=== PATIENT | male | born 1955 | race Caucasian/White ===

== ENCOUNTER 2020-03-06 09:46 | Outpatient (REF) | payer MEDICARE, SELFPAY ==
[2020-03-06 13:52] LABS: MANUAL DIFF FLAG NO
[2020-03-06 14:04] LABS: Basophils Absolute Auto 0.1 X10*3/uL (0.0-0.2); Basophils Percent Auto 0.8 % (0-2); Eosinophils Absolute Auto 0.8 X10*3/uL (0.0-0.4); Eosinophils Percent Auto 9.1 % (0-4); Hematocrit 39.8 % (42-52); Imm Gran Abs Auto 0.06 X10*3/uL (0.00-0.03); Imm Gran Pct Auto 0.7 % (0.0-0.4); Lymphocytes Absolute Auto 2.1 X10*3/uL (1.2-4.9); Lymphocytes Percent Auto 25.5 % (20-40); Mean Corpuscular HGB Conc 32.7 g/dl (31.0-36.0); Mean Corpuscular Hemoglobin 32.7 pg (27.0-33.0); Mean Corpuscular Volume 100.3 fL (80-98); Monocytes Absolute Auto 0.8 X10*3/uL (0.1-1.2); Monocytes Percent Auto 9.1 % (2-11); Neutrophils Absolute Auto 4.6 X10*3/uL (2.0-8.3); Neutrophils Percent Auto 54.8 % (45-73); Platelet Count 322 X10*3/uL (160-400); Red Blood Count 3.97 X10*6/uL (4.60-5.80); Red Cell Distribution Width 11.5 % (11.0-16.0); White Blood Count 8.4 X10*3/uL (4.8-10.8)
[2020-03-06 14:27] LABS: Alanine Aminotransferase 18 U/L (0-40); Albumin Level 4.1 g/dL (3.5-5.0); Alkaline Phosphatase 69 U/L (39-117); Anion Gap 13 (12-20); Aspartate Amino Transferase 11 U/L (5-37); Bilirubin Total 0.3 mg/dL (0.0-1.0); Blood Urea Nitrogen 8 mg/dL (9-16); Calcium 8.7 mg/dL (8.4-10.2); Carbon Dioxide 25 mmol/L (22-29); Chloride 103 mmol/L (96-108); Cholesterol 179 mg/dL; Estimated Glomerular Filt Rate > 60; Glucose Fasting 96 mg/dL (60-99); HDL Cholesterol 45 mg/dL; Iron 80 mcg/dL (45-160); LDL Cholesterol Calculated 121 mg/dl; Percent Iron Saturation 33 % (15-50); Potassium 4.7 mmol/l (3.3-5.1); Sodium 136 mmol/L (135-145); Total Iron Binding Capacity 243 mcg/dL (228-428); Total Protein 6.4 g/dL (6.5-8.0); Triglycerides 68 mg/dL; Unsaturated Iron Binding 163 ug/dL
[2020-03-06 14:53] LABS: Free T4 (Free Thyroxine) 0.94 ng/dL (0.71-1.85); Prostate Specific Antigen Scr 0.89 ng/mL (<0.05-4.0); Thyroid Stimulating Hormone 0.53 uIU/mL (0.32-4.0)
== END 2020-03-06 09:47 | disposition home or self-care (01) ==
LOC: HO.10HDL 09:46
PROVIDERS: Visit Provider Internal Medicine
DX: Z12.5 Encounter for screening for malignant neoplasm of prostate (principal); D64.9 Anemia, unspecified; I10 Essential (primary) hypertension; N40.0 Benign prostatic hyperplasia without lower urinary tract symptoms; M54.9 Dorsalgia, unspecified; E03.9 Hypothyroidism, unspecified
CPT/HCPCS: 36415; 80053; 80061; 83540; 84153; 84439; 84443; 85025

== ENCOUNTER 2020-07-11 11:03 | Outpatient (REF) | payer MEDICARE, SELFPAY ==
[2020-07-11 14:01] LABS: MANUAL DIFF FLAG NO
[2020-07-11 14:10] LABS: Basophils Absolute Auto 0.1 X10*3/uL (0.0-0.2); Basophils Percent Auto 0.7 % (0-2); Eosinophils Absolute Auto 0.5 X10*3/uL (0.0-0.4); Eosinophils Percent Auto 7.2 % (0-4); Hematocrit 38.4 % (42-52); Hemoglobin 12.5 g/dl (14.0-18.0); Imm Gran Abs Auto 0.05 X10*3/uL (0.00-0.03); Imm Gran Pct Auto 0.7 % (0.0-0.4); Lymphocytes Absolute Auto 1.3 X10*3/uL (1.2-4.9); Mean Corpuscular HGB Conc 32.6 g/dl (31.0-36.0); Mean Corpuscular Hemoglobin 32.1 pg (27.0-33.0); Mean Corpuscular Volume 98.7 fL (80-98); Monocytes Absolute Auto 0.7 X10*3/uL (0.1-1.2); Monocytes Percent Auto 9.8 % (2-11); Neutrophils Absolute Auto 4.4 X10*3/uL (2.0-8.3); Neutrophils Percent Auto 62.6 % (45-73); Platelet Count 323 X10*3/uL (160-400); Red Blood Count 3.89 X10*6/uL (4.60-5.80); White Blood Count 7.1 X10*3/uL (4.8-10.8)
[2020-07-11 14:30] LABS: Alanine Aminotransferase 16 U/L (0-40); Albumin Level 4.1 g/dL (3.5-5.0); Alkaline Phosphatase 79 U/L (39-117); Anion Gap 13 (12-20); Aspartate Amino Transferase 12 U/L (5-37); Bilirubin Total 0.2 mg/dL (0.0-1.0); Blood Urea Nitrogen 8 mg/dL (9-16); Carbon Dioxide 26 mmol/L (22-29); Chloride 100 mmol/L (96-108); Estimated Glomerular Filt Rate > 60; Glucose Random 107 mg/dL (60-115); Sodium 134 mmol/L (135-145); Total Protein 6.5 g/dL (6.5-8.0)
[2020-07-11 14:55] LABS: Free T4 (Free Thyroxine) 0.78 ng/dL (0.71-1.85); Thyroid Stimulating Hormone 0.73 uIU/mL (0.32-4.0)
== END 2020-07-11 11:04 | disposition home or self-care (01) ==
LOC: HO.10HDL 11:03
PROVIDERS: PCP Internal Medicine; Visit Provider Internal Medicine
DX: I10 Essential (primary) hypertension (principal); E03.9 Hypothyroidism, unspecified; M19.90 Unspecified osteoarthritis, unspecified site; G40.909 Epilepsy, unspecified, not intractable, without status epilepticus
CPT/HCPCS: 36415; 80053; 84439; 84443; 85025

== ENCOUNTER 2021-01-05 09:40 | Outpatient (REF) | payer MEDICARE, SELFPAY ==
[2021-01-05 10:05] LABS: MANUAL DIFF FLAG NO
[2021-01-05 10:13] LABS: Basophils Absolute Auto 0.1 X10*3/uL (0.0-0.2); Basophils Percent Auto 0.6 % (0-2); Eosinophils Absolute Auto 0.5 X10*3/uL (0.0-0.4); Eosinophils Percent Auto 6.3 % (0-4); Hematocrit 37.4 % (42-52); Hemoglobin 12.4 g/dl (14.0-18.0); Imm Gran Abs Auto 0.07 X10*3/uL (0.00-0.03); Imm Gran Pct Auto 0.9 % (0.0-0.4); Lymphocytes Absolute Auto 1.7 X10*3/uL (1.2-4.9); Lymphocytes Percent Auto 21.9 % (20-40); Mean Corpuscular HGB Conc 33.2 g/dl (31.0-36.0); Mean Corpuscular Hemoglobin 32.6 pg (27.0-33.0); Mean Corpuscular Volume 98.4 fL (80-98); Mean Platelet Volume 9.2 fL (9.4-12.4); Monocytes Absolute Auto 0.7 X10*3/uL (0.1-1.2); Monocytes Percent Auto 9.3 % (2-11); Neutrophils Absolute Auto 4.7 X10*3/uL (2.0-8.3); Platelet Count 333 X10*3/uL (160-400); Red Cell Distribution Width 13.2 % (11.0-16.0); White Blood Count 7.7 X10*3/uL (4.8-10.8)
[2021-01-05 10:38] LABS: Alanine Aminotransferase 14 U/L (0-40); Albumin Level 4.3 g/dL (3.5-5.0); Alkaline Phosphatase 70 U/L (39-117); Anion Gap 13 (12-20); Aspartate Amino Transferase 12 U/L (5-37); Bilirubin Total 0.3 mg/dL (0.0-1.0); Blood Urea Nitrogen 9 mg/dL (9-16); Calcium 9.7 mg/dL (8.4-10.2); Carbon Dioxide 27 mmol/L (22-29); Chloride 100 mmol/L (96-108); Estimated Glomerular Filt Rate > 60; Glucose Random 106 mg/dL (60-115); Iron 159 mcg/dL (45-160); Percent Iron Saturation 57 % (15-50); Potassium 5.2 mmol/L (3.3-5.1); Sodium 135 mmol/L (135-145); Total Iron Binding Capacity 281 mcg/dL (228-428); Total Protein 6.7 g/dL (6.5-8.0); Unsaturated Iron Binding 122 ug/dL
[2021-01-05 10:58] LABS: Thyroid Stimulating Hormone 1.29 uIU/mL (0.32-4.0)
== END 2021-01-05 09:41 | disposition home or self-care (01) ==
LOC: HO.10HDL 09:40
PROVIDERS: Visit Provider Internal Medicine
DX: I10 Essential (primary) hypertension (principal); E03.9 Hypothyroidism, unspecified; D64.9 Anemia, unspecified; G40.909 Epilepsy, unspecified, not intractable, without status epilepticus
CPT/HCPCS: 36415; 80053; 83540; 84439; 84443; 85025

== ENCOUNTER 2021-05-27 09:47 | Outpatient (REF) | payer MEDICARE, SELFPAY ==
[2021-05-27 10:18] LABS: MANUAL DIFF FLAG NO
[2021-05-27 10:30] LABS: Basophils Absolute Auto 0.1 X10*3/uL (0.0-0.2); Basophils Percent Auto 0.8 % (0-2); Eosinophils Absolute Auto 0.6 X10*3/uL (0.0-0.4); Eosinophils Percent Auto 8.7 % (0-4); Hematocrit 37.1 % (42.0-52.0); Hemoglobin 12.1 g/dl (14.0-18.0); Imm Gran Abs Auto 0.03 X10*3/uL (0.00-0.03); Imm Gran Pct Auto 0.5 % (0.0-0.4); Lymphocytes Absolute Auto 1.3 X10*3/uL (1.2-4.9); Lymphocytes Percent Auto 20.8 % (20-40); Mean Corpuscular HGB Conc 32.6 g/dl (31.0-36.0); Mean Corpuscular Hemoglobin 32.4 pg (27.0-33.0); Mean Corpuscular Volume 99.5 fL (80.0-98.0); Mean Platelet Volume 9.7 fL (9.4-12.4); Monocytes Absolute Auto 0.8 X10*3/uL (0.1-1.2); Monocytes Percent Auto 12.7 % (2-11); Neutrophils Absolute Auto 3.7 x10*3/uL (2.0-8.3); Neutrophils Percent Auto 56.5 % (45-73); Platelet Count 248 X10*3/uL (160-400); Red Blood Count 3.73 X10*6/uL (4.60-5.80); White Blood Count 6.5 X10*3/uL (4.8-10.8)
[2021-05-27 11:00] LABS: Alanine Aminotransferase 18 U/L (0-40); Albumin Level 4.2 g/dL (3.5-5.0); Alkaline Phosphatase 63 U/L (39-117); Anion Gap 10 (12-20); Aspartate Amino Transferase 11 U/L (5-37); Bilirubin Total 0.4 mg/dL (0.0-1.0); Blood Urea Nitrogen 8 mg/dL (9-16); Calcium 9.3 mg/dL (8.4-10.2); Carbon Dioxide 27 mmol/L (22-29); Chloride 106 mmol/L (96-108); Cholesterol 221 mg/dL; Estimated Glomerular Filt Rate > 60; Glucose Fasting 105 mg/dL (60-99); HDL Cholesterol 54 mg/dL; LDL Cholesterol Calculated 150 mg/dl; Potassium 4.4 mmol/L (3.3-5.1); Sodium 139 mmol/L (135-145); Total Protein 6.5 g/dL (6.5-8.0); Triglycerides 89 mg/dL
[2021-05-27 11:15] LABS: Free T4 (Free Thyroxine) 0.88 ng/dL (0.71-1.85); Thyroid Stimulating Hormone 1.29 uIU/mL (0.32-4.0)
[2021-05-27 11:45] LABS: Prostate Specific Antigen Scr 0.58 ng/mL (<0.05-4.0)
[2021-05-27 14:10] LABS: Appearance Urine CLEAR; Color Urine YELLOW; Glucose Urine UA NEG (NEG); Leukocyte Esterase Urine NEG (NEG); Nitrite Urine NEG (NEG); Urine Blood TRACE (NEG); Urine Ketones NEG (NEG); Urine Protein NEG (NEG-TRACE)
[2021-05-27 14:38] LABS: Squamous Epithelial Cell Urine 1+ /LPF; WBC Urine 0 /HPF (0-4)
== END 2021-05-27 09:48 | disposition home or self-care (01) ==
LOC: HO.10HDL 09:47
PROVIDERS: Visit Provider Internal Medicine
DX: I10 Essential (primary) hypertension (principal); E78.00 Pure hypercholesterolemia, unspecified; N40.0 Benign prostatic hyperplasia without lower urinary tract symptoms; D64.9 Anemia, unspecified; E03.9 Hypothyroidism, unspecified; G40.909 Epilepsy, unspecified, not intractable, without status epilepticus; Z12.5 Encounter for screening for malignant neoplasm of prostate
CPT/HCPCS: 36415; 80053; 80061; 80185; 81001; 81003; 84153; 84439; 84443; 85025

== ENCOUNTER 2021-10-16 08:41 | Outpatient (REF) | payer MEDICARE, SELFPAY ==
[2021-10-16 10:49] LABS: MANUAL DIFF FLAG NO
[2021-10-16 10:50] LABS: Basophils Absolute Auto 0.1 X10*3/uL (0.0-0.2); Basophils Percent Auto 0.6 % (0-2); Eosinophils Absolute Auto 0.8 X10*3/uL (0.0-0.4); Eosinophils Percent Auto 9.4 % (0-4); Hematocrit 39.3 % (42.0-52.0); Hemoglobin 13.2 g/dl (14.0-18.0); Imm Gran Abs Auto 0.04 X10*3/uL (0.00-0.03); Imm Gran Pct Auto 0.5 % (0.0-0.4); Lymphocytes Absolute Auto 2.1 X10*3/uL (1.2-4.9); Lymphocytes Percent Auto 24.5 % (20-40); Mean Corpuscular HGB Conc 33.6 g/dl (31.0-36.0); Mean Corpuscular Hemoglobin 32.7 pg (27.0-33.0); Mean Corpuscular Volume 97.3 fL (80.0-98.0); Monocytes Absolute Auto 0.8 X10*3/uL (0.1-1.2); Monocytes Percent Auto 8.9 % (2-11); Neutrophils Absolute Auto 4.7 x10*3/uL (2.0-8.3); Neutrophils Percent Auto 56.1 % (45-73); Platelet Count 223 X10*3/uL (160-400); Red Blood Count 4.04 X10*6/uL (4.60-5.80); Red Cell Distribution Width 12.3 % (11.0-16.0); White Blood Count 8.4 X10*3/uL (4.8-10.8)
[2021-10-16 11:51] LABS: Alanine Aminotransferase 24 U/L (0-40); Albumin Level 4.4 g/dL (3.5-5.0); Alkaline Phosphatase 71 U/L (39-117); Anion Gap 14 (12-20); Aspartate Amino Transferase 14 U/L (5-37); Bilirubin Total 0.5 mg/dL (0.0-1.0); Blood Urea Nitrogen 12 mg/dL (9-16); Carbon Dioxide 23 mmol/L (22-29); Chloride 104 mmol/L (96-108); Cholesterol 266 mg/dL; Estimated Glomerular Filt Rate > 60; Glucose Fasting 113 mg/dL (60-99); HDL Cholesterol 52 mg/dL; Iron 133 mcg/dL (45-160); LDL Cholesterol Calculated 173 mg/dl; Percent Iron Saturation 48 % (15-50); Potassium 4.4 mmol/L (3.3-5.1); Sodium 137 mmol/L (135-145); Total Iron Binding Capacity 277 mcg/dL (228-428); Total Protein 7.1 g/dL (6.5-8.0); Triglycerides 205 mg/dL; Unsaturated Iron Binding 144 ug/dL
== END 2021-10-16 08:42 | disposition home or self-care (01) ==
LOC: HO.10HDL 08:41
PROVIDERS: Visit Provider Internal Medicine
DX: I10 Essential (primary) hypertension (principal); E78.00 Pure hypercholesterolemia, unspecified; D64.9 Anemia, unspecified
CPT/HCPCS: 36415; 80053; 80061; 83540; 85025

== ENCOUNTER 2022-01-04 10:15 | Outpatient (REF) | payer MEDICARE, SELFPAY ==
[2022-01-04 10:56] LABS: Estimated Average Glucose 103 mg/dL; Hemoglobin A1c % 5.2 %
[2022-01-04 11:13] LABS: Anion Gap 18 (12-20); Blood Urea Nitrogen 10 mg/dL (9-16); Calcium 9.5 mg/dL (8.4-10.2); Carbon Dioxide 23 mmol/L (22-29); Chloride 102 mmol/L (96-108); Cholesterol 207 mg/dL; Estimated Glomerular Filt Rate > 60; Glucose Fasting 106 mg/dL (60-99); HDL Cholesterol 46 mg/dL; LDL Cholesterol Calculated 123 mg/dl; Potassium 4.7 mmol/L (3.3-5.1); Sodium 138 mmol/L (135-145); Triglycerides 194 mg/dL
== END 2022-01-04 10:16 | disposition home or self-care (01) ==
LOC: HO.10HDL 10:15
PROVIDERS: Visit Provider Internal Medicine
DX: E78.00 Pure hypercholesterolemia, unspecified (principal); R73.03 Prediabetes
CPT/HCPCS: 36415; 80048; 80061; 83036

== ENCOUNTER 2022-04-13 09:35 | Outpatient (REF) | payer MEDICARE, SELFPAY ==
[2022-04-13 10:35] LABS: MANUAL DIFF FLAG NO
[2022-04-13 10:43] LABS: Basophils Absolute Auto 0.1 X10*3/uL (0.0-0.2); Basophils Percent Auto 0.7 % (0-2); Eosinophils Absolute Auto 0.4 X10*3/uL (0.0-0.4); Eosinophils Percent Auto 6.3 % (0-4); Hematocrit 39.2 % (42.0-52.0); Hemoglobin 12.8 g/dl (14.0-18.0); Imm Gran Abs Auto 0.08 X10*3/uL (0.00-0.03); Imm Gran Pct Auto 1.1 % (0.0-0.4); Lymphocytes Absolute Auto 1.9 X10*3/uL (1.2-4.9); Lymphocytes Percent Auto 27.2 % (20-40); Mean Corpuscular HGB Conc 32.7 g/dl (31.0-36.0); Mean Corpuscular Hemoglobin 31.7 pg (27.0-33.0); Mean Platelet Volume 9.7 fL (9.4-12.4); Monocytes Absolute Auto 0.7 X10*3/uL (0.1-1.2); Monocytes Percent Auto 9.3 % (2-11); Neutrophils Absolute Auto 3.9 x10*3/uL (2.0-8.3); Neutrophils Percent Auto 55.4 % (45-73); Platelet Count 273 X10*3/uL (160-400); Red Blood Count 4.04 X10*6/uL (4.60-5.80); Red Cell Distribution Width 12.4 % (11.0-16.0)
[2022-04-13 11:24] LABS: Alanine Aminotransferase 11 U/L (0-40); Albumin Level 4.1 g/dL (3.5-5.0); Alkaline Phosphatase 86 U/L (39-117); Anion Gap 12 (12-20); Aspartate Amino Transferase 11 U/L (5-37); Bilirubin Total 0.3 mg/dL (0.0-1.0); Blood Urea Nitrogen 10 mg/dL (9-16); Calcium 9.1 mg/dL (8.4-10.2); Carbon Dioxide 24 mmol/L (22-29); Chloride 104 mmol/L (96-108); Estimated Glomerular Filt Rate > 60; Glucose Random 105 mg/dL (60-115); Potassium 4.4 mmol/L (3.3-5.1); Sodium 136 mmol/L (135-145); Total Protein 6.4 g/dL (6.5-8.0)
== END 2022-04-13 09:36 | disposition home or self-care (01) ==
LOC: HO.10HDL 09:35
PROVIDERS: Visit Provider Internal Medicine
DX: D64.9 Anemia, unspecified (principal); G40.909 Epilepsy, unspecified, not intractable, without status epilepticus; I10 Essential (primary) hypertension
CPT/HCPCS: 36415; 80053; 85025

== ENCOUNTER 2022-07-15 09:58 | Outpatient (REF) | payer MEDICARE, SELFPAY ==
[2022-07-15 11:37] LABS: Free T4 (Free Thyroxine) 0.97 ng/dL (0.71-1.85); Thyroid Stimulating Hormone 1.79 uIU/mL (0.32-4.0)
[2022-07-15 13:45] LABS: Phenytoin Dilantin 3.4 ug/mL (10.0-20.0)
== END 2022-07-15 09:59 | disposition home or self-care (01) ==
LOC: HO.10HDL 09:58
PROVIDERS: Visit Provider Internal Medicine
DX: E03.9 Hypothyroidism, unspecified (principal); G40.909 Epilepsy, unspecified, not intractable, without status epilepticus
CPT/HCPCS: 36415; 80185; 84439; 84443

== ENCOUNTER 2023-01-03 09:59 | Outpatient (REF) | payer MEDICARE, SELFPAY ==
[2023-01-03 10:50] LABS: MANUAL DIFF FLAG NO
[2023-01-03 10:51] LABS: Basophils Absolute Auto 0.1 X10*3/uL (0.0-0.2); Basophils Percent Auto 0.7 % (0-2); Eosinophils Absolute Auto 0.4 X10*3/uL (0.0-0.4); Eosinophils Percent Auto 5.4 % (0-4); Hematocrit 39.8 % (42.0-52.0); Imm Gran Abs Auto 0.03 X10*3/uL (0.00-0.03); Imm Gran Pct Auto 0.4 % (0.0-0.4); Lymphocytes Absolute Auto 2.3 X10*3/uL (1.2-4.9); Lymphocytes Percent Auto 28.3 % (20-40); Mean Corpuscular HGB Conc 32.7 g/dl (31.0-36.0); Mean Corpuscular Hemoglobin 31.4 pg (27.0-33.0); Mean Corpuscular Volume 96.1 fL (80.0-98.0); Mean Platelet Volume 9.4 fL (9.4-12.4); Monocytes Absolute Auto 0.8 X10*3/uL (0.1-1.2); Neutrophils Absolute Auto 4.5 x10*3/uL (2.0-8.3); Neutrophils Percent Auto 55.2 % (45-73); Platelet Count 329 X10*3/uL (160-400); Red Blood Count 4.14 X10*6/uL (4.60-5.80); Red Cell Distribution Width 11.9 % (11.0-16.0); White Blood Count 8.2 X10*3/uL (4.8-10.8)
[2023-01-03 11:16] LABS: Alanine Aminotransferase 11 U/L (0-40); Albumin Level 4.3 g/dL (3.5-5.0); Alkaline Phosphatase 78 U/L (39-117); Anion Gap 12 (12-20); Aspartate Amino Transferase 10 U/L (5-37); Bilirubin Total 0.4 mg/dL (0.0-1.0); Blood Urea Nitrogen 10 mg/dL (9-16); Calcium 9.5 mg/dL (8.4-10.2); Carbon Dioxide 24 mmol/L (22-29); Chloride 104 mmol/L (96-108); Cholesterol 211 mg/dL (<200); Estimated Glomerular Filt Rate > 60; Glucose Fasting 102 mg/dL (60-99); HDL Cholesterol 45 mg/dL (>40); LDL Cholesterol Calculated 143 mg/dL (<100); Potassium 4.1 mmol/L (3.3-5.1); Sodium 136 mmol/L (135-145); Total Protein 7.1 g/dL (6.5-8.0); Triglycerides 116 mg/dL (<150)
[2023-01-03 11:21] LABS: Prostate Specific Antigen Scr 1.04 ng/mL (<0.05-4.0)
[2023-01-03 11:33] LABS: Free T4 (Free Thyroxine) 0.91 ng/dL (0.71-1.85); Thyroid Stimulating Hormone 1.94 uIU/mL (0.32-4.0)
[2023-01-03 11:35] LABS: Phenytoin Dilantin 3.5 ug/mL (10.0-20.0)
== END 2023-01-03 10:00 | disposition home or self-care (01) ==
LOC: HO.10HDL 09:59
PROVIDERS: Visit Provider Internal Medicine
DX: I10 Essential (primary) hypertension (principal); E78.00 Pure hypercholesterolemia, unspecified; E03.9 Hypothyroidism, unspecified; Z12.5 Encounter for screening for malignant neoplasm of prostate
CPT/HCPCS: 36415; 80053; 80061; 80185; 84153; 84439; 84443; 85025

== ENCOUNTER 2023-12-15 21:26 | Inpatient (IN) | payer MEDICARE, SELFPAY ==
--- NOTE | ~2023-12-15 | FL_ITS ---
EXAMINATION: Intraoperative fluoroscopy CLINICAL INFORMATION: Intramedullary nailing COMPARISON: Right hip radiograph December 15, 2023 TECHNIQUE: Intraoperative fluoroscopy was provided for use by Dr. Augustin. A total of 6 images were saved to PACS. A radiologist was not present during imaging. Today's dictation is only for administrative purposes to document intraoperative fluoroscopic usage. TOTAL FLUOROSCOPIC TIME: 0.9 minutes DAP: 0.55 mGy-cm FINDINGS\ FL/FL guidance in OR IMPRESSION: Intraoperative fluoroscopy provided for use by Dr. Augustin. Please see operative note for detailed findings. Electronically signed by: Miki Connelly MD 12/17/2023 08:24 AM EDT
--- NOTE | ~2023-12-15 | XR_ITS ---
EXAMINATION: XR PELVIS AND RIGHT HIP XR FEMUR, RIGHT CLINICAL INDICATION: Fall, pain COMPARISON: None TECHNIQUE: AP pelvis and 2 views of the right hip. 2 views of the right femur. FINDINGS: There is a slightly displaced intertrochanteric fracture of the right femur. Alignment across the hips is anatomic. There is near complete loss of the joint spaces in the bilateral hips with surrounding spurring and subchondral cyst formation, right greater than left. Sacroiliac joints and pubic symphysis appear intact. Alignment across the knee appears anatomic without significant effusion. XR/XR hip RT w PEL1V IMPRESSION: Slightly displaced intertrochanteric fracture of the right femur. Severe degenerative changes of the hips. Electronically signed by: Del Kay MD 12/16/2023 01:05 AM EDT RP
--- NOTE | ~2023-12-15 | XR_ITS ---
EXAMINATION: XR PELVIS AND RIGHT HIP XR FEMUR, RIGHT CLINICAL INDICATION: Fall, pain COMPARISON: None TECHNIQUE: AP pelvis and 2 views of the right hip. 2 views of the right femur. FINDINGS: There is a slightly displaced intertrochanteric fracture of the right femur. Alignment across the hips is anatomic. There is near complete loss of the joint spaces in the bilateral hips with surrounding spurring and subchondral cyst formation, right greater than left. Sacroiliac joints and pubic symphysis appear intact. Alignment across the knee appears anatomic without significant effusion. XR/XR femur RT 2V IMPRESSION: Slightly displaced intertrochanteric fracture of the right femur. Severe degenerative changes of the hips. Electronically signed by: Del Kay MD 12/16/2023 01:05 AM EDT
--- NOTE | ~2023-12-15 | XR_ITS ---
EXAMINATION: XR CHEST CLINICAL INFORMATION: Leg edema COMPARISON: None available. TECHNIQUE: Frontal view of the chest was obtained. FINDINGS: Lung volumes are symmetric. No focal consolidation is seen. No evidence of pneumothorax, significant pleural effusion, or overt pulmonary edema. Cardiac silhouette appears mildly enlarged for technique. No acute osseous findings are seen. XR/XR chest 1V IMPRESSION: No acute pulmonary findings. Mildly enlarged cardiac silhouette. Electronically signed by: Del Kay MD 12/16/2023 04:09 AM EDT
[2023-12-15 21:36] VITALS: BP 150/80; BP 154/90; PULSE 80; PULSE 88; RESP 18; TEMP 36.5; O2SAT 98; BMI 33.9
[2023-12-15 21:43] VITALS: BP 154/90; PULSE 79; RESP 18; TEMP 36.5
[2023-12-15 22:00] VITALS: BP 136/74; PULSE 75; RESP 14; TEMP 36.4; O2SAT 96
--- NOTE | 2023-12-15 23:26 | ED_ITS ---
HPI - Fall General Chief Complaint: Fall Stated Complaint: Fall Time Seen by Provider: 12/15/23 23:16 Source: patient and family Mode of arrival: ambulatory Limitations: no limitations History of Present Illness ED Provider: Dr. Emi Calabrese HPI Narrative: Patient comes to the emergency room complaining of a fall and right-sided hip pain. Patient states that he was washing the dishes, the counter top was wet, patient was running his hand across the counter, missed yet, fell and landed on the right side of his body. Patient did not hit his head and did not lose consciousness. Patient states that it took him 45 minutes to get up but his right hip hurts quite a bit. Related Data Allergies Allergy/AdvReac Type Severity Reaction Status Date / Time No Known Allergies Allergy Unverified 12/15/23 21:39 Review of Systems 2 Review of Systems: Constitutional : No Weight loss, No Fever, No Chills, No Night Sweats, No Fatigue, No Malaise ENT/Mouth : No Hearing loss, No Ear Pain, No Nasal Congestion, No Sinus Pain, No Hoarseness, No sore throat, No Rhinorrhea, No Swallowing Difficulty Eyes: No Eye Pain, No Swelling, No Redness, No Foreign Body, No Discharge, No Vision Changes Cardiovascular : No Chest Pain, No SOB, No Dyspnea on Exertion, No Orthopnea, No Edema, No Palpitations Respiratory : No Cough, No Sputum, No Wheezing, No Smoke Exposure, No Dyspnea Gastrointestinal : No Nausea, No Vomiting, No Diarrhea, No Constipation, No abdominal Pain, No Hematochezia, No Melena Genitourinary : no irregular bleeding, No Dysuria, No Urinary Frequency, No Hematuria, No Urinary Incontinence, No Urgency, No Flank Pain, No Urinary Flow Changes, No Hesitancy Musculoskeletal : Complaining of right hip pain,, No Myalgias, No Joint Swelling Skin : No Skin Lesions, No rash Neuro : No Weakness, No Numbness, No Paresthesias, No Loss of Consciousness, No Dizziness, No Headache Psych : No Anxiety/Panic, No Depression, No SI/HI/AH/VH, No Social Issues, Heme/Lymph: No Bruising, No Bleeding,No Lymphadenopathy Endocrine : No Polyuria, No Polydipsia, No Temperature Intolerance [facility] Past Medical History Medical History (Updated 12/16/23 @ 02:27 by Emi Calabrese MD) Alcohol abuse, daily use Agoraphobia Hypertension Seizure disorder Social History Social History Alcohol intake: current Alcohol intake frequency: 0-2 drinks per day Alcohol type: wine Smoked in Last 30 Days: No Use of substances other than those prescribed or required for medical reasons: No Advance Directives: No Advance Directives Information Provided: No Do you have a plan to hurt others: No Plan Physical Exam 2 Vital Signs: Vital Signs: Last Vital Signs Temp 98.6 F 12/16/23 00:00 Pulse 72 12/16/23 00:00 Resp 16 12/16/23 00:00 BP 156/67 H 12/16/23 00:00 Pulse Ox 98 12/16/23 00:00 O2 Del Method Room Air 12/16/23 00:00 BMI result Body Mass Index 33.9 Const: Other: Appearance: Alert. Oriented X3. No acute distress. Eyes: Pupils equal, round and reactive to light. ENT: Pharynx normal. Neck: Normal inspection. Neck supple. No lymph nodes noted. No crepitus CVS: Normal heart rate and rhythm. Pulses normal. Normal S1 and S2 Respiratory: No respiratory distress. Breath sounds normal. No Wheezing. No rales Abdomen: Soft and nontender. No rigidity. No distention. Skin: Skin warm and dry. Normal skin color. Normal skin turgor. Extremities: No lower extremity edema. No Lacerations. No Rash. Patient unable to flex the hip on the right side due to pain. Neuro: Oriented X 3. No motor deficit. No sensory deficit. Moving all extremities. No slurred speech. CN 2 through 12 grossly intact Psych: calm, cooperative, normal affect Course Course Course Narrative: Patient's nurse informed me that the patient's son primarily talk to her. Seems that the patient's children are concerned that the patient is drinking more alcohol than the patient states that he drinks. Patient states he drinks 2 glasses of wine at dinner time before going to bed. However, the son is concerned that the patient's drinking more alcohol than this and also over using his benzodiazepines as he frequently runs out of them before his medication refill day Medications Administered Discontinued Medications Generic Name Dose Route Start Last Admin Trade Name Freq PRN Reason Stop Dose Admin Oxycodone HCl 5 mg 12/15/23 23:23 12/15/23 23:58 Oxycodone Hcl Immed Release 5 Mg Tablet PO 12/15/23 23:24 5 mg ONCE ONE Administration Medical Decision Making Medical Decision Making [facility] Narrative: -my interpretation of x-rays of the hip: There is an intratrochanteric fracture of the right femur -my interpretation of labs: White blood cell count 12.5, likely reactive leukocytosis, no source of infection, no symptoms indicating infection, no significant electrolyte abnormality, urinalysis negative, benzodiazepine positive in the urine toxicology which is prescribed to the patient. ETOH level 52 -I described the x-ray findings with PA from Orthopedics, patient being admitted by the medicine team. Patient is to be NPO starting now -I discussed the patient with Dr. Schaefer, patient being admitted. Differential Diagnosis Differential Diagnoses: The differential diagnosis associated with the presentation includes (Hip dislocation, fracture, contusion) Admission/Observation Consideration of admission/observation: Escalation of care including admission/observation considered Consult Healthcare Provider Management of the patient was discussed with: Hospitalist and Funeral Prearrangement Counselor Lab Data [facility] Lab Attestation statement: I reviewed the patient's lab results. 12/16/23 00:20 12/16/23 00:20 Labs: Lab Results 12/16/23 Range/Units 00:20 WBC 12.5 H (4.8-10.8) X10*3/uL RBC 3.65 L (4.60-5.80) X10*6/uL Hgb 12.1 L (14.0-18.0) g/dl Hct 34.7 L (42.0-52.0) % MCV 95.1 (80.0-98.0) fL MCH 33.2 H (27.0-33.0) pg MCHC 34.9 (31.0-36.0) g/dl RDW 12.6 (11.0-16.0) % Plt Count 253 (160-400) X10*3/uL MPV 8.6 L (9.4-12.4) fL Immature Gran % (Auto) 0.6 H (0.0-0.4) % Neut % (Auto) 82.9 H (45-73) % Lymph % (Auto) 9.9 L (20-40) % Gilliam % (Auto) 5.7 (2-11) % Eos % (Auto) 0.6 (0-4) % Baso % (Auto) 0.3 (0-2) % Lymph # (Auto) 1.2 (1.2-4.9) X10*3/uL [place] # (Auto) 0.7 (0.1-1.2) X10*3/uL Eos # (Auto) 0.1 (0.0-0.4) X10*3/uL Baso # (Auto) 0.0 (0.0-0.2) X10*3/uL Abs Immat Gran (auto) 0.08 H (0.00-0.03) X10*3/uL Absolute Neuts (auto) 10.4 H (2.0-8.3) x10*3/uL Absolute Nucleated RBC 0.000 (0.0-0.012) X10*3/uL Nucleated RBC % (auto) 0.0 (0.0-0.2) /100WBC PT 11.4 (11.1-13.3) SEC INR 0.9 (0.9-1.1) Sodium 133 L (135-145) mmol/L Potassium 4.4 (3.3-5.1) mmol/L Chloride 100 (96-108) mmol/L Carbon Dioxide 23 (22-29) mmol/L Anion Gap 14 (12-20) BUN 9 (9-16) mg/dL Creatinine 0.73 (0.5-1.4) mg/dL Estim Creat Clear Calc 124.1 Estimated GFR > 60 Random Glucose 117 H (60-115) mg/dL Calcium 9.4 (8.4-10.2) mg/dL Magnesium 1.8 (1.6-2.6) mg/dL Total Bilirubin 0.2 (0.0-1.0) mg/dL Direct Bilirubin < 0.2 (0.0-0.5) mg/dL AST 15 (5-37) U/L ALT 16 (0-40) U/L Alkaline Phosphatase 84 (39-117) U/L Total Protein 6.8 (6.5-8.0) g/dL Albumin 4.1 (3.5-5.0) g/dL Urine Color Yellow Urine Appearance Clear Urine pH 6.0 (5.0-9.0) Ur Specific [place] 1.010 (1.005-1.025) Urine Protein Negative (Neg-Trace) mg/dL Urine Glucose (UA) Negative (Negative) mg/dL Urine Ketones Negative (Negative) mg/dL Urine Blood Negative (Negative) Urine Nitrite Negative (Negative) Ur Leukocyte Esterase Negative (Negative) Urine Opiates Screen Not Detected (Not Detect) Ur Buprenorphine Scrn Not Detected (Not Detect) ng/mL Ur Oxycodone Screen Not Detected (Not Detect) ng/mL Urine Methadone Screen Not Detected (Not Detect) ng/mL Urine Fentanyl Screen Not Detected (Not Detect) Ur Barbiturates Screen Not Detected (Not Detect) Ur Phencyclidine Scrn Not Detected (Not Detect) Ur Amphetamines Screen Not Detected (Not Detect) U Benzodiazepines Scrn POSITIVE H (Not Detect) Urine Cocaine Screen Not Detected (Not Detect) U Marijuana (THC) Screen Not Detected (Not Detect) Ethyl Alcohol 52 mg/dL Independent Interpretation I performed an independent interpretation of an: Plain X-Ray Radiology Impression Discussion of test interpretation with radiology: I have reviewed the radiologist's reading. Radiologist Impression: There is a slightly displaced intertrochanteric fracture of the right femur. Alignment across the hips is anatomic. There is near complete loss of the joint spaces in the bilateral hips with surrounding spurring and subchondral cyst formation, right greater than left. Sacroiliac joints and pubic symphysis appear intact. Alignment across the knee appears anatomic without significant effusion. XR/XR hip RT w PEL1V IMPRESSION: Slightly displaced intertrochanteric fracture of the right femur. Severe degenerative changes of the hips. Independent Historian Clinical information obtained from an independent historian. History obtained from or confirmed by: Other (Son and daughter) Critical Care Time Critical Care Time Critical Care Time: Yes Total Critical Care Time: 60 Attestation: I have personally provided critical care time. Time includes review of lab data, radiology results, discussion with consultants, and monitoring for potential decompensation. Intervention performed as documented. Discharge Plan Discharge Clinical Impression: Closed intertrochanteric fracture of femur Patient Disposition: Admitted As Inpatient Print Language: [place]se
--- NOTE | 2023-12-15 23:53 | ECG_ITS ---
Test Reason : FALL Blood Pressure : / mmHG Vent. Rate : 079 BPM Atrial Rate : 079 BPM P-R Int : 152 ms QRS Dur : 096 ms QT Int : 406 ms P-R-T Axes : 000 -15 038 degrees QTc Int : 465 ms Sinus rhythm with occasional Premature ventricular complexes Low voltage QRS Incomplete right bundle branch block Septal infarct , age undetermined Possible Inferior infarct , age undetermined ST & T wave abnormality, consider anterior ischemia Abnormal ECG No previous ECGs available Referred By: Emi Calabrese Electronically Signed By:ARIANA SWIFT
[2023-12-15] MEDS: oxyCODONE HCl Immed Release 5 MG TABLET PO (23:58)
[2023-12-16] VITALS (16 sets, daily range): BP systolic 127–162; BP diastolic 59–83; PULSE 72–88; RESP 12–86; TEMP 36.1–37; O2SAT 97–100
[2023-12-16 00:29] LABS: Basophils Percent Auto 0.3 % (0-2); Eosinophils Absolute Auto 0.1 X10*3/uL (0.0-0.4); Eosinophils Percent Auto 0.6 % (0-4); Hematocrit 34.7 % (42.0-52.0); Hemoglobin 12.1 g/dl (14.0-18.0); Imm Gran Abs Auto 0.08 X10*3/uL (0.00-0.03); Imm Gran Pct Auto 0.6 % (0.0-0.4); Lymphocytes Absolute Auto 1.2 X10*3/uL (1.2-4.9); Lymphocytes Percent Auto 9.9 % (20-40); MANUAL DIFF FLAG NO; Mean Corpuscular HGB Conc 34.9 g/dl (31.0-36.0); Mean Corpuscular Hemoglobin 33.2 pg (27.0-33.0); Mean Corpuscular Volume 95.1 fL (80.0-98.0); Mean Platelet Volume 8.6 fL (9.4-12.4); Monocytes Absolute Auto 0.7 X10*3/uL (0.1-1.2); Monocytes Percent Auto 5.7 % (2-11); Neutrophils Absolute Auto 10.4 x10*3/uL (2.0-8.3); Neutrophils Percent Auto 82.9 % (45-73); Platelet Count 253 X10*3/uL (160-400); Red Blood Count 3.65 X10*6/uL (4.60-5.80); Red Cell Distribution Width 12.6 % (11.0-16.0); White Blood Count 12.5 X10*3/uL (4.8-10.8)
[2023-12-16 00:30] LABS: Appearance Urine Clear; Color Urine Yellow; Glucose Urine UA Negative (Negative); Leukocyte Esterase Urine Negative (Negative); Nitrite Urine Negative (Negative); Urine Blood Negative (Negative); Urine Ketones Negative (Negative); Urine Protein Negative (Neg-Trace)
[2023-12-16 00:36] LABS: INTERNATIONAL NORM RATIO 0.9 (0.9-1.1); Prothrombin Time 11.4 SEC (11.1-13.3)
[2023-12-16 00:45] LABS: Amphetamine Screen Urine Not Detected (Not Detect); Barbiturates, Urine Not Detected (Not Detect); Benzodiazepines Screen Urine POSITIVE (Not Detect); Buprenorphine Scr Not Detected (Not Detect); Cannabinoid Screen Urine Not Detected (Not Detect); Cocaine Screen Urine Not Detected (Not Detect); Fentanyl, urine Not Detected (Not Detect); Methadone Screen, Urine Not Detected (Not Detect); Opiate Screen Urine Not Detected (Not Detect); Oxycodone Screen Urine Not Detected (Not Detect); Phencyclidine Screen Urine Not Detected (Not Detect)
[2023-12-16 00:58] LABS: Alanine Aminotransferase 16 U/L (0-40); Albumin Level 4.1 g/dL (3.5-5.0); Alkaline Phosphatase 84 U/L (39-117); Anion Gap 14 (12-20); Aspartate Amino Transferase 15 U/L (5-37); Bilirubin Direct < 0.2 mg/dL (0.0-0.5); Bilirubin Total 0.2 mg/dL (0.0-1.0); Blood Urea Nitrogen 9 mg/dL (9-16); Calcium 9.4 mg/dL (8.4-10.2); Carbon Dioxide 23 mmol/L (22-29); Chloride 100 mmol/L (96-108); Creatinine Clr Calc Pharmacy 124.1; Estimated Glomerular Filt Rate > 60; Ethanol 52 mg/dL; Glucose Random 117 mg/dL (60-115); Magnesium 1.8 mg/dL (1.6-2.6); Potassium 4.4 mmol/L (3.3-5.1); Sodium 133 mmol/L (135-145); Total Protein 6.8 g/dL (6.5-8.0)
--- NOTE | 2023-12-16 02:08 | PC.NURSE ---
Family member at bedside. While pt left to imaging, family member divludge that pt is an alcoholic, and does not accurately report usage. They are also concern about possible benzo abuse. CIWA 0 at this time
--- NOTE | 2023-12-16 02:32 | P.HPHOSP_ITS ---
History of Present Illness Date of Service: 12/19/23 Chief Complaint: hip pain A 68-year-old male with a history of seizure disorder, hypertension, hyperlipidemia, anxiety disorder, and hypothyroidism presented after a fall resulting in a right hip fracture. He states that he was doing dishes and wiping the countertop when he slipped and fell, denying head injury, syncope, or seizure. He reports drinking 3 glasses of wine daily, though his son believes he drinks more. His blood alcohol level was 52 on presentation, and he has no symptoms of alcohol withdrawal. A hip X-ray showed a right femur fracture. Review of Systems 2 Review of Systems: Gen: no fever Resp: no sob, no cough CV: no chest, no CHANEY, no leg edema GI: No n/v, no abd pain Neuro: No confusion, no tremors, no shakes right hip pain with movment. Yes all other systems are reviewed and are negative [facility] Medical History Alcohol abuse, daily use Agoraphobia Hypertension Seizure disorder Social History Household Members: None Housing: House Are you a primary director of primary care to a significant other at home: No Do you presently have visiting nurse or other home services: No Alcohol intake: current Alcohol intake frequency: 3 or more drinks per day Alcohol type: wine Patient Tobacco Use Status: Never used Tobacco Smoked in Last 30 Days: No Second Hand Smoke Exposure: No Use of substances other than those prescribed or required for medical reasons: No Advance Directives: No Advance Directives Information Provided: Yes Do you have a plan to hurt others: No Plan service: No Meds Allergies Allergy/AdvReac Type Severity Reaction Status Date / Time No Known Allergies Allergy Verified 12/26/23 04:42 Active Medications: Current Medications Pharmacy Consult (Consult Rx Etoh Phenob Im/Po) 1 each MISCELLANE ONCE PRN; Protocol PRN Reason: Consult order Home Medications ?Medication ?Instructions ?Recorded ?Confirmed ?Last Taken ?Type alprazolam 1 mg tablet 1 mg PO QID PRN Anxiety 12/16/23 12/16/23 12/15/23 18:00 History cholecalciferol (vitamin D3) 125 125 mcg PO DAILY 12/16/23 12/16/2324 History mcg (5,000 unit) tablet (Vitamin D3) levothyroxine 50 mcg tablet 50 mcg PO DAILY 12/16/23 12/16/23 1 Day Ago History ~12/15/23 lisinopril 40 mg tablet 40 mg PO DAILY 12/16/23 12/16/23 1 Day Ago History ~12/15/23 phenytoin sodium extended 100 mg 300 mg PO DAILY 12/16/23 12/16/23 1 Day Ago History capsule ~12/15/23 simvastatin 10 mg tablet 10 mg PO DAILY 12/16/23 12/16/23 1 Day Ago History ~12/15/23 Physical Exam 2 Vital Signs and Narrative: Vital Signs: Last Vital Signs Temp 98.6 F 12/16/23 00:00 Pulse 72 12/16/23 00:00 Resp 16 12/16/23 00:00 BP 156/67 H 12/16/23 00:00 Pulse Ox 98 12/16/23 00:00 O2 Del Method Room Air 12/16/23 00:00 BMI result Body Mass Index 33.9 Const: Other: Constitutional: Alert, in no distress Mental Status: Oriented to person, place and time. Eyes: Pupils are equal, round and reactive to light. Ear, Nose and Throat: Oropharynx clear, mucous membranes moist. Ears and nose without eformities. Trachea midline. Respiratory: Clear to auscultation. No wheezing, rales or rhonchi. Cardiovascular: S1 S2 regular. No murmurs, rubs or gallops. 2+ pitting edema elke Gastrointestinal: Abdomen soft, non-tender, non-distended. Normal bowel sounds.? Neurologic: Cranial nerves II-XII grossly intact. No focal neurological deficits. Moves all extremities spontaneously.? Skin: No rashes or lesions.? Musculoskeletal: No cyanosis or clubbing., shortened right lowe extremity Psychiatric: Normal mood and affect? Results Labs 12/17/23 05:57 12/18/23 07:26 Labs: Laboratory Results - last 24 hr 12/16/23 00:20 MCV 95.1 MCH 33.2 H MCHC 34.9 RDW 12.6 Plt Count 253 MPV 8.6 L Immature Gran % (Auto) 0.6 H Neut % (Auto) 82.9 H Lymph % (Auto) 9.9 L [place] % (Auto) 5.7 Eos % (Auto) 0.6 Baso % (Auto) 0.3 Lymph # (Auto) 1.2 [place] # (Auto) 0.7 Eos # (Auto) 0.1 Baso # (Auto) 0.0 Abs Immat Gran (auto) 0.08 H Absolute Neuts (auto) 10.4 H Absolute Nucleated RBC 0.000 Nucleated RBC % (auto) 0.0 PT 11.4 INR 0.9 Anion Gap 14 Estim Creat Clear Calc 124.1 Estimated GFR > 60 Random Glucose 117 H Calcium 9.4 Magnesium 1.8 Total Bilirubin 0.2 Direct Bilirubin < 0.2 AST 15 ALT 16 Alkaline Phosphatase 84 Total Protein 6.8 Albumin 4.1 Urine Color Yellow Urine Appearance Clear Urine pH 6.0 Ur Specific [place] 1.010 Urine Protein Negative Urine Glucose (UA) Negative Urine Ketones Negative Urine Blood Negative Urine Nitrite Negative Ur Leukocyte Esterase Negative Urine Opiates Screen Not Detected Ur Buprenorphine Scrn Not Detected Ur Oxycodone Screen Not Detected Urine Methadone Screen Not Detected Urine Fentanyl Screen Not Detected Ur Barbiturates Screen Not Detected Ur Phencyclidine Scrn Not Detected Ur Amphetamines Screen Not Detected U Benzodiazepines Scrn POSITIVE H Urine Cocaine Screen Not Detected U Marijuana (THC) Screen Not Detected Ethyl Alcohol 52 Imaging Radiologist's Impressions: Impressions Femur X-Ray 12/15/23 23:23 IMPRESSION: Slightly displaced intertrochanteric fracture of the right femur. Severe degenerative changes of the hips. Electronically signed by: Del Kay MD 12/16/2023 01:05 AM [facility] Hip/Pelvis X-Ray 12/15/23 23:23 IMPRESSION: Slightly displaced intertrochanteric fracture of the right femur. Severe degenerative changes of the hips. Electronically signed by: Del Kay MD 12/16/2023 01:05 AM [facility] Assessment and Plan (1) Hip fracture: Status: Acute Plan 68 year old male with seizure d/o, HTN, HLD, anxiey disorder, hypothyroidism here with fall resulting in right hip fracture Right hip fracture d/t mechanical fall -Ortho consult -NPO now -morphine for pain Leg edama, ecg with old ischemic changes, no prior. no chest pain, BNP is normal -cardiology eval prior to surgery, eccho Alcool use disorder, at risk for withdrawal -CIWA, Phenobarbital protocol initiated in the ED HLD -Lipitor HypoT -levothyroxine Anxiety on --on Xanax at home Seizure d/o -Dilantin DVT prophylaxis: compression device, chemic prophylaxis after surgery Quality Stroke Does the patient have a stroke diagnosis?: No VTE Prior VTE?: No VTE Risk Level:: Medical - moderate - high VTE Device Contraindication: N/A - Device Ordered VTE Drug Contraindication: Treatment Not Indicated
[2023-12-16] MEDS: PHENobarbitaL sodium 130 MG/ML IM ONCE 372 MG IM (03:04)
[2023-12-16 03:42] LABS: B Type Natriuretic Peptide 22 pg/mL (<100)
--- NOTE | 2023-12-16 07:00 | CA_ITS ---
Transthoracic Echocardiogram Patient (Last, First, Middle): Sher Horne, Gender: Male Date of : 1955 Age: 68 Procedure Date: 12/16/2023 Procedure Type: Transthoracic Echocardiogram Location: ER Height: 182.88 cm Weight: 113.4 kg BSA: 2.34 m2 Heart Rate: bpm BP: 127 / 59 mmHg Referring MD: Malachi Schaefer MD Symptoms: abnormal ecg, Pre Operation assessment Study Quality: Technically Difficult due to body habitus ECG Rhythm: Sinus Conclusions: - Normal left ventricular size and systolic function. There is mildly increased left ventricular wall thickness. The visually estimated ejection fraction is between 55-60%. - E/E prime ratio is between 8 and 15 consistent with indeterminate filling pressures. - Normal right ventricular cavity size and systolic function. - The left atrium is likely dilated. - There is mild dilatation of the ascending aorta measuring 3.80 cm. Findings Procedure Information Contrast agent, definity, is being given per protocol without apparent complications. Left Ventricle Normal left ventricular size and systolic function. There is mildly increased left ventricular wall thickness. The visually estimated ejection fraction is between 55-60%. Regional wall motion abnormalities can not be excluded due to suboptimal endocardial definition. Abnormal diastolic function is noted. Spectral Doppler is indicative of an impaired relaxation filling pattern. E/E prime ratio is between 8 and 15 consistent with indeterminate filling pressures. Right Ventricle Normal right ventricular cavity size and systolic function. Atria The left atrium is likely dilated. Aortic Valve The aortic valve was not well visualized. There is no aortic valve stenosis. There is no aortic valve regurgitation. Mitral Valve Likely normal mitral valve structure and function. There is no mitral valve regurgitation. There is no mitral valve stenosis. Pulmonic Valve The pulmonic valve was not well visualized. Tricuspid Valve Likely normal tricuspid valve structure and function. Normal right atrial pressure. There is no evidence of pulmonary hypertension. Great Vessels There is mild dilatation of the ascending aorta measuring 3.80 cm. Venous The inferior vena cava is normal in size and collapses greater than 50% with inspiration. Pericardium/Pleural Prominent epicardial adipose tissue noted. There is no evidence of pericardial effusion. Prior Study Comparison No prior study available for comparison. Measurements 2D Linear Measurements IVSd: 1.28 0.6-0.9/0.6-1.0 cm LVIDd: 4.36 3.9-5.3/4.2-5.9 cm LVIDd Index: 1.86 2.4-3.2/2.2-3.1 cm/m2 LVIDs: 2.97 2.0-3.6 cm LVPWd: 1.20 0.7-1.1 cm Ao Root: 3.90 2.1-3.5 cm LA Diam: 4.80 2.7-3.8/3.0-4.0 cm LAIDs Index: 2.05 1.5-2.3 cm/m2 LV Mass: 246.62 67-162/88-224 g LV Mass Index: 105.39 43-95/49-115 g/m2 LVOT Diam: 2.20 3.0+(-)1.3 cm Mitral Valve MV Pk E: 0.71 MV PK A: 1.00 MV Decel Time: 143.00 E/A: 0.70 E'Lateral: 6.85 E'Medial: 6.96 E/E' Med: 10.20 E/E' Lat: 10.40 PHT: 42.00 MVA PHT: 5.24 Decel [place]: 4.98 Aortic Valve AoV Pk Vazquez: 1.43 AoV Mn Vazquez: 0.96 AoV VTI: 0.31 AoV Pk Grad: 8.00 Aov Mn Grad: 4.00 REBEKAH Cont.VTI: 2.30 LVOT LVOT Pk Vazquez: 1.00 LVOT Mn Vazquez: 0.69 LVOT VTI: 0.19 LVOT Pk Grad: 4.00 LVOT Mn Grad: 2.00 LVOT Diam: 2.20 LVOT Area: 3.80 Diastolic Function MV Pk E: 0.71 MV Pk A: 1.00 E/A: 0.70 E'Medial: 6.96 E/E' Med: 10.20 E' Laterial: 6.85 E/E' Lat: 10.40 Right Ventricle TAPSE (mm): 27.00 Tricuspid Valve TR Pk Vazquez: 1.64 TR Pk Grad: 11.00 RA Press: 3.00 RVSP: 14.00 Great Vessels Aorta Ao Root-2D: 3.90 2.0-3.7 cm Ao Asc: 3.80 2.1-3.4 cm Pulmonary Valve PV Pk Vazquez: 1.16 Peak PV Grad: 5.00 Updated in Other Vendor System with Status of Final Dennys Sawyer MD electronically signed on 12/16/2023 2:52:04 PM with status of Final
[2023-12-16] MEDS: PHENobarbitaL sodium 130 MG/ML VIAL IM Q3Hx2 280 MG IM ×2 (07:19→10:17)
[2023-12-16] MEDS: Levothyroxine Sodium 50 MCG TABLET PO (07:19)
--- NOTE | 2023-12-16 07:23 | PC.NURSE ---
pt axox3. no tremors. no bruising at rigth leg/hip noted. is aware that he's NPO.
[2023-12-16] MEDS: Morphine Sulfate 2 MG/ML CARTRIDGE IVPUSH (07:40)
--- NOTE | 2023-12-16 07:45 | PC.NURSE ---
diff to palpate pedal pulses BLE. but both feet have brisk cap refill, warm to touch. good CSM.
[2023-12-16] MEDS: ALPRAZolam 0.5 MG TABLET 1 MG PO (08:29)
[2023-12-16] MEDS: Phenytoin Sodium Extended 100 MG CAPSULE 300 MG PO ×3 (08:29→22:47)
[2023-12-16] MEDS: lisinopriL 40 MG TABLET PO (08:29)
[2023-12-16] MEDS: Atorvastatin Calcium 10 MG TABLET PO (08:29)
--- NOTE | 2023-12-16 09:15 | PHA.MEDREC ---
Addendum entered by Francoise Hernández RPh 12/16/23 09:39: Reviewed by this [facility] Original Note: Pharmacy Consult ? Medication Reconciliation Pharmacy has completed the medication reconciliation. Confirmed medications with patient. 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 He also states he is taking Phenytoin Sodium Extended 100mg and originally he was suppose to be taking it 3 caps 3 times a day but patient states he only been doing 3 caps in the morning. He stated he started a Vitamin D3 125mg (5000 unit) tab once tab daily for bone health recently. He stated he took all his medications yesterday.
--- NOTE | 2023-12-16 10:55 | PC.NURSE ---
Report to [facility]. Likely to go to OR at noon. Pt aware.
--- NOTE | 2023-12-16 11:27 | P.CONOP_ITS ---
History of Present Illness HPI Consult date: 12/16/23 Chief complaint: Right Hip Fracture Narrative: Patient is a 68-year-old male admitted to the hospital for treatment of intertrochanteric fracture of right hip. The patient reports that last night, he was cleaning his catching, and when he attempted to move his pie maker back to its spot, he lost his balance on the right side and fell. The patient states that he has had a bad right hip for several years, and states that this likely contributed to his fall. The patient reports that he is experiencing significant discomfort in his right hip at this time. Patient denies any numbness or tingling in the right lower extremity. The patient does report that he has been experiencing a tremor for the last few minutes, but states that this happens when he is nervous. No other acute complaints or concerns at this time Review of Systems 2 Review of Systems: Yes all other systems are reviewed and are negative [facility] Past Medical History Medical History (Updated 12/16/23 @ 11:35 by KENDRA De Guzman) Alcohol abuse, daily use Agoraphobia Hypertension Seizure disorder Social History Social History Alcohol intake: current Alcohol intake frequency: 0-2 drinks per day Alcohol type: wine Meds Allergies Allergy/AdvReac Type Severity Reaction Status Date / Time No Known Allergies Allergy Unverified 12/15/23 21:39 Active Medications: Current Medications Acetaminophen (Acetaminophen 325 Mg Tablet) 650 mg PO Q6H PRN PRN Reason: Pain, Mild (Pain Scale 1-3), fever or headache Al Hydroxide/Mg Hydroxide (Magnesium Hydrox/Alum Hydrox 30 Ml Oral.Susp) 30 ml PO Q4H PRN PRN Reason: Heartburn Alprazolam (Alprazolam 0.5 Mg Tablet) 1 mg PO QID PRN PRN Reason: Anxiety Last Admin: 12/16/23 08:29 Dose: 1 mg Atorvastatin Calcium (Atorvastatin Calcium 10 Mg Tablet) 10 mg PO DAILY [place] Last Admin: 12/16/23 08:29 Dose: 10 mg Calcium Carbonate (Calcium Carbonate 750 Mg Tab.Chew) 750 mg PO Q4H PRN PRN Reason: Heartburn Cefazolin Sodium/Dextrose (Ancef) 2 gm in 50 mls @ 100 mls/hr IV PREOP ONE Stop: 12/16/23 13:52 Levothyroxine Sodium (Levothyroxine Sodium 50 Mcg Tablet) 50 mcg PO DAILY@0630 [facility] Last Admin: 12/16/23 07:19 Dose: 50 mcg Lisinopril (Lisinopril 40 Mg Tablet) 40 mg PO DAILY [facility]; Protocol Last Admin: 12/16/23 08:29 Dose: 40 mg Magnesium Hydroxide (Milk Of Magnesia 30 Ml Oral.Susp) 30 ml PO DAILY PRN PRN Reason: Constipation Melatonin (Melatonin 3 Mg Tablet) 6 mg PO BEDTIME PRN PRN Reason: Insomnia Morphine Sulfate (Morphine Sulfate 2 Mg/Ml Cartridge) 2 mg IVPUSH Q6H PRN; Protocol PRN Reason: Pain, Severe (Pain Scale 7-10) Last Admin: 12/16/23 07:40 Dose: 2 mg Ondansetron HCl (Ondansetron Hcl 4 Mg/2 Ml Vial) 4 mg IVPUSH Q8H PRN PRN Reason: Nausea and Vomiting Pharmacy Consult (Consult Rx Etoh Phenob Im/Po) 1 each MISCELLANE ONCE PRN; Protocol PRN Reason: Consult order Phenobarbital (Phenobarbital 30 Mg Tablet) 60 mg PO BID [facility]; Protocol Stop: 12/18/23 09:01 Phenobarbital (Phenobarbital 30 Mg Tablet) 30 mg PO BID [facility]; Protocol Stop: 12/20/23 09:01 Phenobarbital (Phenobarbital 30 Mg Tablet) 30 mg PO DAILY [facility]; Protocol Stop: 12/22/23 09:01 Phenytoin Sodium (Phenytoin Sodium Extended 100 Mg Capsule) 300 mg PO TID [facility] Last Admin: 12/16/23 08:29 Dose: 300 mg Polyethylene Glycol (Polyethylene Glycol 3350 17 Gm Powd.Pack) 17 gm PO DAILY PRN PRN Reason: Constipation Sodium Chloride (0.9 % Sodium Chloride Flush 3 Ml Syringe) 3 ml IVFLUSH QSHIFT [facility] Last Admin: 12/16/23 07:20 Dose: Not Given Vitamin D (Cholecalciferol (Vitamin D3) 25 Mcg Tablet) 125 mcg PO DAILY [facility] Home Medications ?Medication ?Instructions ?Recorded ?Confirmed ?Last Taken ?Type alprazolam 1 mg tablet 1 mg PO QID PRN Anxiety 12/16/23 12/16/23 12/15/23 18:00 History cholecalciferol (vitamin D3) 125 125 mcg PO DAILY 12/16/23 12/16/23 12/15/23 History mcg (5,000 unit) tablet (Vitamin D3) levothyroxine 50 mcg tablet 50 mcg PO DAILY 12/16/23 12/16/23 1 Day Ago History ~12/15/23 lisinopril 40 mg tablet 40 mg PO DAILY 12/16/23 12/16/23 1 Day Ago History ~12/15/23 phenytoin sodium extended 100 mg 300 mg PO DAILY 12/16/23 12/16/23 1 Day Ago History capsule ~12/15/23 simvastatin 10 mg tablet 10 mg PO DAILY 12/16/23 12/16/23 1 Day Ago History ~12/15/23 Physical Exam 2 Vital Signs: Vital Signs: Last Vital Signs Temp 97.4 F 12/16/23 08:27 Pulse 83 12/16/23 08:27 Resp 86 H 12/16/23 08:27 BP 135/70 12/16/23 08:29 Pulse Ox 98 12/16/23 08:27 O2 Del Method Room Air 12/16/23 08:27 BMI result Body Mass Index 33.9 Extrem: Other: Patient's right hip normal to inspection No erythema, ecchymosis noted No lacerations, abrasions, open areas No evidence of infection No evidence of shortening or external rotation Patient reports tenderness to gentle palpation about the anterior right hip Patient is able to dorsiflex and plantar flex the right foot without difficulty Patient is able to flex and extend the digits of the right foot without difficulty Distal sensation intact Capillary refill brisk Compartments soft, nontender Results Labs 12/16/23 00:20 12/16/23 00:20 Labs: Abnormal lab results 12/16/23 Range/Units 00:20 WBC 12.5 H (4.8-10.8) X10*3/uL RBC 3.65 L (4.60-5.80) X10*6/uL Hgb 12.1 L (14.0-18.0) g/dl Hct 34.7 L (42.0-52.0) % MCH 33.2 H (27.0-33.0) pg MPV 8.6 L (9.4-12.4) fL Immature Gran % (Auto) 0.6 H (0.0-0.4) % Neut % (Auto) 82.9 H (45-73) % Lymph % (Auto) 9.9 L (20-40) % Abs Immat Gran (auto) 0.08 H (0.00-0.03) X10*3/uL Absolute Neuts (auto) 10.4 H (2.0-8.3) x10*3/uL Sodium 133 L (135-145) mmol/L Random Glucose 117 H (60-115) mg/dL U Benzodiazepines Scrn POSITIVE H (Not Detect) H & H 12/16/23 Range/Units 00:20 Hgb 12.1 L (14.0-18.0) g/dl Hct 34.7 L (42.0-52.0) % Coagulation 12/16/23 Range/Units 00:20 INR 0.9 (0.9-1.1) All other labs normal. Diagnostic results Hip x-ray: report reviewed and image reviewed (X-rays obtained in the ED today and independently reviewed by me, Justice Jerry PA-C, demonstrate minimally displaced intertrochanteric fracture of the right hip. ) Assessment and Plan (1) Closed intertrochanteric fracture of right hip: Status: Acute Plan 1. Intertrochanteric fracture of right hip, closed, nondisplaced Date of injury 12/15/2023 Patient is educated about this condition and the treatment options available, namely surgery I educated the patient about the condition. I discussed both operative and nonoperative treatment options. The patient would like to proceed with surgery. The risks and benefits of operative treatment were discussed with the patient and the patient wishes to proceed with surgery. These risks include, but are not limited to, risk of damage to blood vessels, nerves, tendons, infection, recurrence, incomplete relief of preoperative symptoms, persistent pain, possible need for further surgery, and the risks associated with regional blocks and/or anesthesia. Plan is to take the patient to the operating room later today for the following procedures: 1. Open reduction internal fixation of right hip with IM nail placement All of the patient's questions were answered Patient is not currently on any blood thinners Patient should remain NPO today Procedures Date of Service Date of Service: 12/16/23
--- NOTE | 2023-12-16 11:47 | P.CONCA_ITS ---
History of Present Illness History of Present Illness Date of Service: 12/16/23 Requesting physician: Jesse Smith Chief complaint: Right Hip Fracture Narrative: [age] year gentleman with mechanical fall and right intertrochanteric fracture of femur. He has background history of hypertension and seizure disorder for which he has been on phenytoin. He drinks wine 3-4 glasses every day for many many years. No chest pain or shortness of breath. EKGs showing right bundle-branch block with precordial T-wave changes. Does not seem to be very active due to arthritis in knee and hip but in day-to-day life he has no significant symptoms. We have been asked to assess his perioperative cardiovascular risk. [facility] Past Medical History Medical History (Updated 12/16/23 @ 11:49 by Dennys Sawyer MD) Alcohol abuse, daily use Agoraphobia Hypertension Seizure disorder Social History Social History Alcohol intake: current Alcohol intake frequency: 0-2 drinks per day Alcohol type: wine Meds Allergies Allergy/AdvReac Type Severity Reaction Status Date / Time No Known Allergies Allergy Unverified 12/15/23 21:39 Active Medications: Current Medications Acetaminophen (Acetaminophen 325 Mg Tablet) 650 mg PO Q6H PRN PRN Reason: Pain, Mild (Pain Scale 1-3), fever or headache Al Hydroxide/Mg Hydroxide (Magnesium Hydrox/Alum Hydrox 30 Ml Oral.Susp) 30 ml PO Q4H PRN PRN Reason: Heartburn Alprazolam (Alprazolam 0.5 Mg Tablet) 1 mg PO QID PRN PRN Reason: Anxiety Last Admin: 12/16/23 08:29 Dose: 1 mg Atorvastatin Calcium (Atorvastatin Calcium 10 Mg Tablet) 10 mg PO DAILY [facility] Last Admin: 12/16/23 08:29 Dose: 10 mg Calcium Carbonate (Calcium Carbonate 750 Mg Tab.Chew) 750 mg PO Q4H PRN PRN Reason: Heartburn Cefazolin Sodium/Dextrose (Ancef) 2 gm in 50 mls @ 100 mls/hr IV PREOP ONE Stop: 12/16/23 13:52 Levothyroxine Sodium (Levothyroxine Sodium 50 Mcg Tablet) 50 mcg PO DAILY@0630 [facility] Last Admin: 12/16/23 07:19 Dose: 50 mcg Lisinopril (Lisinopril 40 Mg Tablet) 40 mg PO DAILY [facility]; Protocol Last Admin: 12/16/23 08:29 Dose: 40 mg Magnesium Hydroxide (Milk Of Magnesia 30 Ml Oral.Susp) 30 ml PO DAILY PRN PRN Reason: Constipation Melatonin (Melatonin 3 Mg Tablet) 6 mg PO BEDTIME PRN PRN Reason: Insomnia Morphine Sulfate (Morphine Sulfate 2 Mg/Ml Cartridge) 2 mg IVPUSH Q6H PRN; Protocol PRN Reason: Pain, Severe (Pain Scale 7-10) Last Admin: 12/16/23 07:40 Dose: 2 mg Ondansetron HCl (Ondansetron Hcl 4 Mg/2 Ml Vial) 4 mg IVPUSH Q8H PRN PRN Reason: Nausea and Vomiting Pharmacy Consult (Consult Rx Etoh Phenob Im/Po) 1 each MISCELLANE ONCE PRN; Protocol PRN Reason: Consult order Phenobarbital (Phenobarbital 30 Mg Tablet) 60 mg PO BID [facility]; Protocol Stop: 12/18/23 09:01 Phenobarbital (Phenobarbital 30 Mg Tablet) 30 mg PO BID [facility]; Protocol Stop: 12/20/23 09:01 Phenobarbital (Phenobarbital 30 Mg Tablet) 30 mg PO DAILY [facility]; Protocol Stop: 12/22/23 09:01 Phenytoin Sodium (Phenytoin Sodium Extended 100 Mg Capsule) 300 mg PO TID [facility] Last Admin: 12/16/23 08:29 Dose: 300 mg Polyethylene Glycol (Polyethylene Glycol 3350 17 Gm Powd.Pack) 17 gm PO DAILY PRN PRN Reason: Constipation Sodium Chloride (0.9 % Sodium Chloride Flush 3 Ml Syringe) [facility] Last Admin: 12/16/23 07:20 Dose: Not Given Vitamin D (Cholecalciferol (Vitamin D3) 25 Mcg Tablet) 125 mcg PO DAILY [facility] Home Medications ?Medication ?Instructions ?Recorded ?Confirmed ?Last Taken ?Type alprazolam 1 mg tablet 1 mg PO QID PRN Anxiety 12/16/23 12/16/23 12/15/23 18:00 History cholecalciferol (vitamin D3) 125 125 mcg PO DAILY 12/16/23 12/16/23 12/15/23 History mcg (5,000 unit) tablet (Vitamin D3) levothyroxine 50 mcg tablet 50 mcg PO DAILY 12/16/23 12/16/23 1 Day Ago History ~12/15/23 lisinopril 40 mg tablet 40 mg PO DAILY 12/16/23 12/16/23 1 Day Ago History ~12/15/23 phenytoin sodium extended 100 mg 300 mg PO DAILY 12/16/23 12/16/23 1 Day Ago History capsule ~12/15/23 simvastatin 10 mg tablet 10 mg PO DAILY 12/16/23 12/16/23 1 Day Ago History ~12/15/23 Physical Exam 2 Vital Signs: Vital Signs: Last Vital Signs Temp 97.4 F 12/16/23 08:27 Pulse 83 12/16/23 08:27 Resp 86 H 12/16/23 08:27 BP 135/70 12/16/23 08:29 Pulse Ox 98 12/16/23 08:27 O2 Del Method Room Air 12/16/23 08:27 BMI result Body Mass Index 33.9 GENERAL APPEARANCE: in no acute distress, pleasant. NECK: no carotid bruit, no jugular venous distention. SKIN: no suspicious lesions, warm and dry. HEART: no murmurs, regular rate and rhythm. LUNGS: clear to auscultation bilaterally. ABDOMEN: soft, nontender. EXTREMITIES: Mild edema. PERIPHERAL PULSES: equal. NEUROLOGIC: No gross deficits, AAO X 3 Objective Labs and Meds 12/16/23 00:20 12/16/23 00:20 Lab results: Laboratory Results - last 24 hr 12/16/23 12/16/23 00:20 08:38 WBC 12.5 H RBC 3.65 L Hgb 12.1 L Hct 34.7 L MCV 95.1 MCH 33.2 H MCHC 34.9 RDW 12.6 Plt Count 253 MPV 8.6 L Immature Gran % (Auto) 0.6 H Neut % (Auto) 82.9 H Lymph % (Auto) 9.9 L Leslie % (Auto) 5.7 Eos % (Auto) 0.6 Baso % (Auto) 0.3 Lymph # (Auto) 1.2 Leslie # (Auto) 0.7 Eos # (Auto) 0.1 Baso # (Auto) 0.0 Abs Immat Gran (auto) 0.08 H Absolute Neuts (auto) 10.4 H Absolute Nucleated RBC 0.000 Nucleated RBC % (auto) 0.0 PT 11.4 INR 0.9 Sodium 133 L Potassium 4.4 Chloride 100 Carbon Dioxide 23 Anion Gap 14 BUN 9 Creatinine 0.73 Estim Creat Clear Calc 124.1 Estimated GFR > 60 Random Glucose 117 H Calcium 9.4 Magnesium 1.8 Total Bilirubin 0.2 Direct Bilirubin < 0.2 AST 15 ALT 16 Alkaline Phosphatase 84 B-Natriuretic Peptide 22 Total Protein 6.8 Albumin 4.1 Urine Color Yellow Urine Appearance Clear Urine pH 6.0 Ur Specific Crescent 1.010 Urine Protein Negative Urine Glucose (UA) Negative Urine Ketones Negative Urine Blood Negative Urine Nitrite Negative Ur Leukocyte Esterase Negative Urine Opiates Screen Not Detected Ur Buprenorphine Scrn Not Detected Ur Oxycodone Screen Not Detected Urine Methadone Screen Not Detected Urine Fentanyl Screen Not Detected Ur Barbiturates Screen Not Detected Ur Phencyclidine Scrn Not Detected Ur Amphetamines Screen Not Detected U Benzodiazepines Scrn POSITIVE H Urine Cocaine Screen Not Detected U Marijuana (THC) Screen Not Detected Ethyl Alcohol 52 Blood Type O Positive Antibody Screen NEGATIVE Imaging Radiologist's impression: Impressions Femur X-Ray 12/15/23 23:23 IMPRESSION: Slightly displaced intertrochanteric fracture of the right femur. Severe degenerative changes of the hips. Electronically signed by: Del Kay MD 12/16/2023 01:05 AM EDT RP Hip/Pelvis X-Ray 12/15/23 23:23 IMPRESSION: Slightly displaced intertrochanteric fracture of the right femur. Severe degenerative changes of the hips. Electronically signed by: Del Kay MD 12/16/2023 01:05 AM EDT Chest X-Ray 12/16/23 03:00 IMPRESSION: No acute pulmonary findings. Mildly enlarged cardiac silhouette. Electronically signed by: Del Kay MD 12/16/2023 04:09 AM EDT Assessment and Plan (1) Closed intertrochanteric fracture of femur: Status: Acute (2) Preop cardiovascular exam: Status: Acute Plan 68 gentleman with history of alcohol use, hypertension and seizure disorder for which he is on phenytoin presenting for mechanical fall and hip fracture. He will need surgical treatment. EKGs showing right bundle-branch block but I do not see any ischemic changes. Clinical history also is not concerning and he has not had any symptoms is day-to-day life before. Laying flat in bed without any dyspnea and does not appear to be in heart failure. Recommend echocardiography to assess LV function. Not high-risk and can proceed with hip replacement whenever deemed appropriate by the orthopedic team. If going to OR tomorrow then hold lisinopril tomorrow morning. Thank you for allowing me to participate in the care of your patient. Please feel free to contact me if you have any questions. Procedures Date of Service Date of Service: 12/16/23
--- NOTE | 2023-12-16 12:19 | PC.NURSE ---
transfered to OR by transporter aprox [phone].
[2023-12-16] MEDS: Lactated Ringers 1,000 ML 80 ML IVCONT ×2 (12:27→17:33)
--- NOTE | 2023-12-16 12:27 | PM.EVENT ---
Event Note Date of Service: 12/16/23 Event Note: Day hospitalist update C/o R hip pain. Seen by Orthopedics + Cardiology. Deemed to be intermediate-risk for OR; TTE pending. Orthopedics plans ORIF R hip with IMN. Hold lisinopril Continue phenobarbital taper Continue atorvastatin Continue levothyroxine Continue phenytoin Time Spent With Patient Time: Total time managing care of this patient today ____ minutes.
--- NOTE | 2023-12-16 13:17 | MHC.SHP ---
Pre-Procedural Eval Section A - 24 Hr Update-Section A only Date of Service: 12/16/23 The patient is an INPATIENT: Yes Changes since office visit: No Cold of Flu in the past 2 weeks, No New Medical Problems, No Changes in Medication and No Patient answered all questions The patient has been examined within 24 hours of the surgical procedure. The History & Physical has been completed within 30 days and I have reviewed it.: Yes Section B - Complete if H&P > 30 days Chief Complaint: Right Hip Fracture Allergies: Allergies Allergy/AdvReac Type Severity Reaction Status Date / Time No Known Allergies Allergy Unverified 12/15/23 21:39 Plan I have reviewed the history and physical and performed a pertinent physical examination on my patient. No changes have occurred unless specified. Time Spent With Patient Time: Total time managing care of this patient today ____ minutes.
--- NOTE | 2023-12-16 14:03 | HO.ANESPROP2 ---
HPI - Anesthesia Eval Consult details Narrative: 68 yo M admitted with intertrochanteric fracture of right hip. Hx of seizures - last seizure about 2 years ago. 2-3 glasses of wine daily. PMFSH Active Problems Active Problems: All Active Problems (Updated 12/16/23 @ 11:49 by Dennys Sawyer MD) Preop cardiovascular exam (Acute) Closed intertrochanteric fracture of right hip (Acute) Closed intertrochanteric fracture of femur (Acute) Past Medical History Medical History (Updated 12/16/23 @ 11:49 by Dennys Sawyer MD) Alcohol abuse, daily use Agoraphobia Hypertension Seizure disorder Family History Family history of problems with anesthesia: No Surgical History History of Problems with Anesthesia: No Social History Social History Are you a primary child care teacher to a significant other at home: No Do you presently have visiting nurse or other home services: No Alcohol intake: current Alcohol intake frequency: 3 or more drinks per day Alcohol type: wine Patient Tobacco Use Status: Never used Tobacco Second Hand Smoke Exposure: No Meds Allergies Allergy/AdvReac Type Severity Reaction Status Date / Time No Known Allergies Allergy Unverified 12/15/23 21:39 Active Medications: Current Medications Acetaminophen (Acetaminophen 325 Mg Tablet) 650 mg PO Q6H PRN PRN Reason: Pain, Mild (Pain Scale 1-3), fever or headache Al Hydroxide/Mg Hydroxide (Magnesium Hydrox/Alum Hydrox 30 Ml Oral.Susp) 30 ml PO Q4H PRN PRN Reason: Heartburn Alprazolam (Alprazolam 0.5 Mg Tablet) 1 mg PO QID PRN PRN Reason: Anxiety Last Admin: 12/16/23 08:29 Dose: 1 mg Atorvastatin Calcium (Atorvastatin Calcium 10 Mg Tablet) 10 mg PO DAILY [facility] Last Admin: 12/16/23 08:29 Dose: 10 mg Calcium Carbonate (Calcium Carbonate 750 Mg Tab.Chew) 750 mg PO Q4H PRN PRN Reason: Heartburn Lactated Ringer's (Lr) 1,000 mls @ 80 mls/hr IVCONT .[id number] [facility] Last Admin: 12/16/23 12:27 Dose: 80 mls/hr Levothyroxine Sodium (Levothyroxine Sodium 50 Mcg Tablet) 50 mcg PO DAILY@0630 [facility] Last Admin: 12/16/23 07:19 Dose: 50 mcg Lisinopril (Lisinopril 40 Mg Tablet) 40 mg PO DAILY [facility]; Protocol Last Admin: 12/16/23 08:29 Dose: 40 mg Magnesium Hydroxide (Milk Of Magnesia 30 Ml Oral.Susp) 30 ml PO DAILY PRN PRN Reason: Constipation Melatonin (Melatonin 3 Mg Tablet) 6 mg PO BEDTIME PRN PRN Reason: Insomnia Morphine Sulfate (Morphine Sulfate 2 Mg/Ml Cartridge) 2 mg IVPUSH Q6H PRN; Protocol PRN Reason: Pain, Severe (Pain Scale 7-10) Last Admin: 12/16/23 07:40 Dose: 2 mg Ondansetron HCl (Ondansetron Hcl 4 Mg/2 Ml Vial) 4 mg IVPUSH Q8H PRN PRN Reason: Nausea and Vomiting Pharmacy Consult (Consult Rx Etoh Phenob Im/Po) 1 each MISCELLANE ONCE PRN; Protocol PRN Reason: Consult order Phenobarbital (Phenobarbital 30 Mg Tablet) 60 mg PO BID [facility]; Protocol Stop: 12/18/23 09:01 Phenobarbital (Phenobarbital 30 Mg Tablet) 30 mg PO BID [facility]; Protocol Stop: 12/20/23 09:01 Phenobarbital (Phenobarbital 30 Mg Tablet) 30 mg PO DAILY [facility]; Protocol Stop: 12/22/23 09:01 Phenytoin Sodium (Phenytoin Sodium Extended 100 Mg Capsule) 300 mg PO TID [facility] Last Admin: 12/16/23 08:29 Dose: 300 mg Polyethylene Glycol (Polyethylene Glycol 3350 17 Gm Powd.Pack) 17 gm PO DAILY PRN PRN Reason: Constipation Sodium Chloride (0.9 % Sodium Chloride Flush 3 Ml Syringe) [facility] Last Admin: 12/16/23 07:20 Dose: Not Given Vitamin D (Cholecalciferol (Vitamin D3) 25 Mcg Tablet) 125 mcg PO DAILY [facility] Home Medications ?Medication ?Instructions ?Recorded ?Confirmed ?Last Taken ?Type alprazolam 1 mg tablet 1 mg PO QID PRN Anxiety 12/16/23 12/16/23 12/15/23 18:00 History cholecalciferol (vitamin D3) 125 125 mcg PO DAILY 12/16/23 12/16/23 12/15/23 History mcg (5,000 unit) tablet (Vitamin D3) levothyroxine 50 mcg tablet 50 mcg PO DAILY 12/16/23 12/16/23 1 Day Ago History ~12/15/23 lisinopril 40 mg tablet 40 mg PO DAILY 12/16/23 12/16/23 1 Day Ago History ~12/15/23 phenytoin sodium extended 100 mg 300 mg PO DAILY 12/16/23 12/16/23 1 Day Ago History capsule ~12/15/23 simvastatin 10 mg tablet 10 mg PO DAILY 12/16/23 12/16/23 1 Day Ago History ~12/15/23 Exam Exam Date and Time: 12/16/23 1400 Height,Weight and Vital Signs: Height 6 ft Weight 113.398 kg Last Vital Signs Temp 98.0 F 12/16/23 12:22 Pulse 84 12/16/23 12:22 Resp 16 12/16/23 12:22 BP 143/68 H 12/16/23 12:22 Pulse Ox 100 12/16/23 12:22 O2 Del Method Room Air 12/16/23 12:22 Pertinent Lab Results Pertinent Lab Results: Laboratory Tests 12/16/23 12/16/23 00:20 08:38 WBC 12.5 H RBC 3.65 L Hgb 12.1 L Hct 34.7 L MCV 95.1 MCH 33.2 H MCHC 34.9 RDW 12.6 Plt Count 253 MPV 8.6 L Immature Gran % (Auto) 0.6 H Neut % (Auto) 82.9 H Lymph % (Auto) 9.9 L [place] % (Auto) 5.7 Eos % (Auto) 0.6 Baso % (Auto) 0.3 Lymph # (Auto) 1.2 [place] # (Auto) 0.7 Eos # (Auto) 0.1 Baso # (Auto) 0.0 Abs Immat Gran (auto) 0.08 H Absolute Neuts (auto) 10.4 H Absolute Nucleated RBC 0.000 Nucleated RBC % (auto) 0.0 PT 11.4 INR 0.9 Sodium 133 L Potassium 4.4 Chloride 100 Carbon Dioxide 23 Anion Gap 14 BUN 9 Creatinine 0.73 Estim Creat Clear Calc 124.1 Estimated GFR > 60 Random Glucose 117 H Calcium 9.4 Magnesium 1.8 Total Bilirubin 0.2 Direct Bilirubin < 0.2 AST 15 ALT 16 Alkaline Phosphatase 84 B-Natriuretic Peptide 22 Total Protein 6.8 Albumin 4.1 Urine Color Yellow Urine Appearance Clear Urine pH 6.0 Ur Specific [place] 1.010 Urine Protein Negative Urine Glucose (UA) Negative Urine Ketones Negative Urine Blood Negative Urine Nitrite Negative Ur Leukocyte Esterase Negative Urine Opiates Screen Not Detected Ur Buprenorphine Scrn Not Detected Ur Oxycodone Screen Not Detected Urine Methadone Screen Not Detected Urine Fentanyl Screen Not Detected Ur Barbiturates Screen Not Detected Ur Phencyclidine Scrn Not Detected Ur Amphetamines Screen Not Detected U Benzodiazepines Scrn POSITIVE H Urine Cocaine Screen Not Detected U Marijuana (THC) Screen Not Detected Ethyl Alcohol 52 Blood Type O Positive Antibody Screen NEGATIVE Airway Mallampati Class: III TM Dist: >3cm Neck ROM: Full Loose/Missing/Broken Teeth: Yes (very poor dentition) Heart: S1S2 Lungs: CTAB Assessment and Plan Assessment Anesthesia Assessment: Anesthesia Plan Discussed and Chart Reviewed Final Anesthetic Review Family History of Problems with Anesthesia: No History of Problems with Anesthesia: No NPO: Yes ASA Class: III Final Preanesthetic Review: No Changes in Pt Med Stat, Meds/Allgs Chart Reviewed, Consent Obtained/Reviewed and Anes Risks/Benef Reviewed Patient Risk: Intermediate Procedure Risk: Intermediate Anesthetic Plan Anesthetic Plan: GA and Agree w/ Assess. and Plan Disposition: Standard PACU
--- NOTE | 2023-12-16 14:51 | PM.OP ---
Brief Operative Note Date of Service: 12/16/23 Pre-op diagnosis: Right hip IT fx Post-op diagnosis: same Procedure: Right hip IMN Implants: Bk 170x 13 130 deg with 115 mm hip screw and 37.5 distal interlock Surgeon: Brandon Augustin MD Anesthesia: GLMA and local Was an Associate Team Physician used for this Procedure?: No Estimated blood loss (mL): 150 IV fluids (mL): 1,000 Pathology: none sent Condition: stable
[2023-12-16] MEDS: HYDROmorphone HCl 0.5 MG/0.5 ML SYRINGE IVPUSH (15:31)
[2023-12-16] MEDS: 0.9 % Sodium Chloride Flush 3 ML SYRINGE IVFLUSH (17:37)
[2023-12-16] MEDS: PHENobarbitaL 30 MG TABLET 60 MG PO (21:51)
[2023-12-17] VITALS (8 sets, daily range): BP systolic 110–149; BP diastolic 53–70; PULSE 80–89; RESP 16–20; TEMP 36.3–37.2; O2SAT 94–100
[2023-12-17] MEDS: Morphine Sulfate 2 MG/ML CARTRIDGE IVPUSH ×3 (01:01→20:22)
[2023-12-17] MEDS: Lactated Ringers 1,000 ML 80 ML IVCONT ×2 (06:03→17:43)
[2023-12-17] MEDS: Levothyroxine Sodium 50 MCG TABLET PO (06:03)
[2023-12-17 06:04] LABS: MANUAL DIFF FLAG NO
[2023-12-17 06:10] LABS: Basophils Percent Auto 0.4 % (0-2); Eosinophils Absolute Auto 0.1 X10*3/uL (0.0-0.4); Eosinophils Percent Auto 1.7 % (0-4); Hematocrit 31.7 % (42.0-52.0); Hemoglobin 10.3 g/dl (14.0-18.0); Imm Gran Abs Auto 0.03 X10*3/uL (0.00-0.03); Imm Gran Pct Auto 0.4 % (0.0-0.4); Lymphocytes Absolute Auto 1.2 X10*3/uL (1.2-4.9); Lymphocytes Percent Auto 15.5 % (20-40); Mean Corpuscular HGB Conc 32.5 g/dl (31.0-36.0); Mean Corpuscular Hemoglobin 32.1 pg (27.0-33.0); Mean Corpuscular Volume 98.8 fL (80.0-98.0); Mean Platelet Volume 9.3 fL (9.4-12.4); Monocytes Absolute Auto 0.8 X10*3/uL (0.1-1.2); Monocytes Percent Auto 10.6 % (2-11); Neutrophils Absolute Auto 5.3 x10*3/uL (2.0-8.3); Neutrophils Percent Auto 71.4 % (45-73); Platelet Count 212 X10*3/uL (160-400); Red Blood Count 3.21 X10*6/uL (4.60-5.80); Red Cell Distribution Width 12.8 % (11.0-16.0); White Blood Count 7.5 X10*3/uL (4.8-10.8)
[2023-12-17 06:18] LABS: Anion Gap 13 (12-20); Blood Urea Nitrogen 8 mg/dL (9-16); Calcium 8.6 mg/dL (8.4-10.2); Carbon Dioxide 25 mmol/L (22-29); Chloride 99 mmol/L (96-108); Creatinine Clr Calc Pharmacy 122.4; Estimated Glomerular Filt Rate > 60; Glucose Random 108 mg/dL (60-115); Potassium 4.5 mmol/L (3.3-5.1); Sodium 132 mmol/L (135-145)
[2023-12-17] MEDS: PHENobarbitaL 30 MG TABLET 60 MG PO ×2 (09:07→20:22)
[2023-12-17] MEDS: Phenytoin Sodium Extended 100 MG CAPSULE 300 MG PO ×3 (09:07→20:22)
[2023-12-17] MEDS: Cholecalciferol (Vitamin D3) 25 MCG TABLET 125 MCG PO (09:08)
[2023-12-17] MEDS: Atorvastatin Calcium 10 MG TABLET PO (09:08)
[2023-12-17] MEDS: Acetaminophen 325 MG TABLET 650 MG PO (09:13)
[2023-12-17] MEDS: ALPRAZolam 0.5 MG TABLET 1 MG PO ×3 (09:13→20:32)
--- NOTE | 2023-12-17 09:34 | PM.PNORT ---
Subjective Subjective Date of Service: 12/17/23 Interval history: POD1 s/p right hip IM Nail Patient is resting in bed comfortably No overnight events Pain is managed No additional complaints Physical Exam Vital Signs: Vital Signs: Last Vital Signs Temp 98.3 F 12/17/23 07:46 Pulse 84 12/17/23 07:46 Resp 17 12/17/23 07:46 BP 129/59 L 12/17/23 07:46 Pulse Ox 94 12/17/23 07:46 O2 Del Method Room Air 12/17/23 07:46 O2 Flow Rate 3 12/17/23 00:00 BMI result Body Mass Index 33.9 Const: General: cooperative, healthy appearing and no acute distress Resp: Effort & Inspection: normal respiratory effort and able to speak in complete sentences Cardio: Rate: regular rate Peripheral pulses: Peripheral pulses 2+ throughout GI: Palpation (GI): Soft to palpation Skin: Lesions: no lesions Rashes: no rashes Extrem: Other: right hip dressing is c/d/i. Able to dorsi/plantar flex. Calf is supple and nontender. Sensation intact. Pedal pulse intact. Procedures Date of Service Date of Service: 12/17/23 Progress Note: A&P Assessment and plan (1) Closed intertrochanteric fracture of right hip: Status: Acute Plan Continue pain mgmnt Begin Lovenox for dvt ppx begin PT/OT for rigth hip IM Nail - WBAT Dispo planning-Pending PT eval, pain mgmnt Time Spent With Patient Time: Total time managing care of this patient today ____ minutes. Quality Stroke Does the patient have a stroke diagnosis?: No VTE Prior VTE?: No VTE Risk Level:: Medical - moderate - high VTE Device Contraindication: N/A - Device Ordered VTE Drug Contraindication: Treatment Not Indicated
--- NOTE | 2023-12-17 14:07 | HO.POSTANES ---
Post Anesthesia Evaluation Post Anesthesia Evaluation Date of Service: 12/17/23 Vital Signs: Vital Signs Temp Pulse Resp BP Pulse Ox O2 Del Method 12/17/23 11:46 98.5 F 86 16 135/56 L 94 Room Air 12/17/23 07:46 98.3 F 84 17 129/59 L 94 Room Air 12/17/23 03:57 97.5 F 84 16 110/53 L 98 Room Air Anesthesia: General LMA Mental Status: Awake Pain Control: Satisfactory Nausea/Vomiting: None Hydration: Adequate Anesthesia-Related Issues: No Anes. Related Issues
[2023-12-17] MEDS: Enoxaparin Sodium 40 MG/0.4 ML SYRINGE SUBCUT (14:20)
--- NOTE | 2023-12-17 15:10 | HO.PM.IMPN ---
Subjective Subjective Date of Service: 12/17/23 Interval History: No acute issues postoperatively. CIWA 0 Review of Systems Denies chest pain Denies shortness of breath Denies nausea vomiting diarrhea Denies fever chills Physical Exam Vital Signs: Vital Signs: Last Vital Signs Temp 98.5 F 12/17/23 11:46 Pulse 86 12/17/23 11:46 Resp 16 12/17/23 11:46 BP 135/56 L 12/17/23 11:46 Pulse Ox 94 12/17/23 11:46 O2 Del Method Room Air 12/17/23 11:46 O2 Flow Rate 3 12/17/23 00:00 BMI result Body Mass Index 33.9 Const: Other: Awake alert no acute distress Resp: Other: Clear to auscultation bilaterally no rales rhonchi or wheezes Cardio: Other: No S4; positive S1-S2; no S3 murmurs rubs or gallops GI: Other: Soft nontender nondistended normoactive bowel sounds Extrem: Other: No edema bilaterally Objective Data Active Medications Acetaminophen (Acetaminophen 325 Mg Tablet) 650 mg PO Q6H PRN PRN Reason: Pain, Mild (Pain Scale 1-3), fever or headache Last Admin: 12/17/23 09:13 Dose: 650 mg Documented By: RENATE Al Hydroxide/Mg Hydroxide (Magnesium Hydrox/Alum Hydrox 30 Ml Oral.Susp) 30 ml PO Q4H PRN PRN Reason: Heartburn Alprazolam (Alprazolam 0.5 Mg Tablet) 1 mg PO QID PRN PRN Reason: Anxiety Last Admin: 12/17/23 14:28 Dose: 1 mg Documented By: RENATE Atorvastatin Calcium (Atorvastatin Calcium 10 Mg Tablet) 10 mg PO DAILY COUNTS [facility]CLUDE 234 BEDS AT THE [facility] Last Admin: 12/17/23 09:08 Dose: 10 mg Documented By: RENATE Calcium Carbonate (Calcium Carbonate 750 Mg Tab.Chew) 750 mg PO Q4H PRN PRN Reason: Heartburn Enoxaparin Sodium (Enoxaparin Sodium 40 Mg/0.4 Ml Syringe) 40 mg SUBCUT Q24H COUNTS INCLUDE 234 BEDS AT THE [facility] Last Admin: 12/17/23 14:20 Dose: 40 mg Documented By: RENATE Cefazolin Sodium/Dextrose (Ancef) 2 gm in 50 mls @ 100 mls/hr IV POSTOP COUNTS INCLUDE 234 BEDS AT THE [facility] Lactated Ringer's (Lr) 1,000 mls @ 80 mls/hr IVCONT .[id number] COUNTS INCLUDE 234 BEDS AT THE [facility] Last Admin: 12/17/23 06:03 Dose: 80 mls/hr Documented By: SAY Levothyroxine Sodium (Levothyroxine Sodium 50 Mcg Tablet) 50 mcg PO DAILY@0630 COUNTS [facility]CLUDE 234 BEDS AT THE [facility] Last Admin: 12/17/23 06:03 Dose: 50 mcg Documented By: SAY Lisinopril (Lisinopril 40 Mg Tablet) 40 mg PO DAILY COUNTS INCLUDE 234 BEDS AT THE [facility]; Protocol Last Admin: 12/16/23 08:29 Dose: 40 mg Documented By: KJ Magnesium Hydroxide (Milk Of Magnesia 30 Ml Oral.Susp) 30 ml PO DAILY PRN PRN Reason: Constipation Melatonin (Melatonin 3 Mg Tablet) 6 mg PO BEDTIME PRN PRN Reason: Insomnia Morphine Sulfate (Morphine Sulfate 2 Mg/Ml Cartridge) 2 mg IVPUSH Q6H PRN; Protocol PRN Reason: Pain, Severe (Pain Scale 7-10) Last Admin: 12/17/23 06:25 Dose: 2 mg Documented By: SAY Naloxone HCl (Naloxone Hcl 0.4 Mg/Ml Vial) 0.04 mg IVPUSH Q5M PRN PRN Reason: Excessive sedation or RR < 8 Ondansetron HCl (Ondansetron Hcl 4 Mg/2 Ml Vial) 4 mg IVPUSH Q8H PRN PRN Reason: Nausea and Vomiting Pharmacy Consult (Consult Rx Etoh Phenob Im/Po) 1 each MISCELLANE ONCE PRN; Protocol PRN Reason: Consult order Phenobarbital (Phenobarbital 30 Mg Tablet) 60 mg PO BID COUNTS [facility]CLUDE 234 BEDS AT THE [facility]; Protocol Stop: 12/18/23 09:01 Last Admin: 12/17/23 09:07 Dose: 60 mg Documented By: RENATE Phenobarbital (Phenobarbital 30 Mg Tablet) 30 mg PO BID COUNTS [facility]CLUDE 234 BEDS AT THE [facility]; Protocol Stop: 12/20/23 09:01 Phenobarbital (Phenobarbital 30 Mg Tablet) 30 mg PO DAILY COUNTS [facility]CLUDE 234 BEDS AT THE [facility]; Protocol Stop: 12/22/23 09:01 Phenytoin Sodium (Phenytoin Sodium Extended 100 Mg Capsule) 300 mg PO TID COUNTS INCLUDE 234 BEDS AT THE [facility] Last Admin: 12/17/23 14:20 Dose: 300 mg Documented By: RENATE Polyethylene Glycol (Polyethylene Glycol 3350 17 Gm Powd.Pack) 17 gm PO DAILY PRN PRN Reason: Constipation Sodium Chloride (0.9 % Sodium Chloride Flush 3 Ml Syringe) 3 ml IVFLUSH QSHIFT COUNTS INCLUDE 234 BEDS AT THE [facility] Last Admin: 12/17/23 15:03 Dose: Not Given Documented By: RENATE Non-Admin Reason: IV Running Vitamin D (Cholecalciferol (Vitamin D3) 25 Mcg Tablet) 125 mcg PO DAILY COUNTS INCLUDE 234 BEDS AT THE [facility] Last Admin: 12/17/23 09:08 Dose: 125 mcg Documented By: RENATE Labs 12/17/23 05:57 12/17/23 05:57 Labs: Laboratory Results - last 24 hr 12/17/23 05:57 MCV 98.8 H MCH 32.1 MCHC 32.5 RDW 12.8 Plt Count 212 MPV 9.3 L Immature Gran % (Auto) 0.4 Neut % (Auto) 71.4 Lymph % (Auto) 15.5 L [place] % (Auto) 10.6 Eos % (Auto) 1.7 Baso % (Auto) 0.4 Lymph # (Auto) 1.2 [place] # (Auto) 0.8 Eos # (Auto) 0.1 Baso # (Auto) 0.0 Abs Immat Gran (auto) 0.03 Absolute Neuts (auto) 5.3 Absolute Nucleated RBC 0.000 Nucleated RBC % (auto) 0.0 Anion Gap 13 Estim Creat Clear Calc 122.4 Estimated GFR > 60 Random Glucose 108 Calcium 8.6 D Assessment and Plan (1) Closed intertrochanteric fracture of right hip: Status: Acute Plan 68 year old male with seizure d/o, HTN, HLD, anxiey disorder, hypothyroidism here with fall resulting in right hip fracture; status post ORIF 12/15 1.Right hip fracture d/t mechanical fall.. Status post ORIF -postop day 1 -Lovenox initiated -as per ortho 2.Alcool use disorder, at risk for withdrawal -CIWA remains 0 -continue protocol 3.Seizure d/o -no recent seizures -continue Dilantin at outpatient dosing Full code Lovenox Requires ongoing hospitalization for evaluation of safe discharge Quality Stroke Does the patient have a stroke diagnosis?: No VTE Prior VTE?: No VTE Risk Level:: Medical - moderate - high VTE Device Contraindication: N/A - Device Ordered VTE Drug Contraindication: Treatment Not Indicated
[2023-12-18 03:29] VITALS: BP 145/67; PULSE 79; RESP 16; TEMP 36.6; O2SAT 96
[2023-12-18] MEDS: Morphine Sulfate 2 MG/ML CARTRIDGE IVPUSH ×4 (03:40→22:44)
[2023-12-18] MEDS: ALPRAZolam 0.5 MG TABLET 1 MG PO ×4 (03:49→21:17)
[2023-12-18] MEDS: Levothyroxine Sodium 50 MCG TABLET PO (06:03)
[2023-12-18] MEDS: Lactated Ringers 1,000 ML 80 ML IVCONT ×2 (06:04→17:31)
[2023-12-18 07:29] VITALS: BP 135/61; PULSE 75; RESP 16; TEMP 36.1; O2SAT 96
--- NOTE | 2023-12-18 07:51 | PM.EVENT ---
Event Note Date of Service: 12/18/23 Event Note: Discussed the patient with KHUSHI Zuñiga. Patient is doing well. No overnight events. Vitals are stable and patient is afebrile. Pain is managed. Time Spent With Patient Time: Total time managing care of this patient today ____ minutes.
[2023-12-18 08:04] LABS: Anion Gap 11 (12-20); Blood Urea Nitrogen 8 mg/dL (9-16); Calcium 8.9 mg/dL (8.4-10.2); Carbon Dioxide 28 mmol/L (22-29); Chloride 98 mmol/L (96-108); Creatinine Clr Calc Pharmacy 117.7; Estimated Glomerular Filt Rate > 60; Glucose Random 106 mg/dL (60-115); Potassium 4.2 mmol/L (3.3-5.1); Sodium 133 mmol/L (135-145)
[2023-12-18] MEDS: Atorvastatin Calcium 10 MG TABLET PO (08:59)
[2023-12-18] MEDS: Cholecalciferol (Vitamin D3) 25 MCG TABLET 125 MCG PO (08:59)
[2023-12-18] MEDS: Phenytoin Sodium Extended 100 MG CAPSULE 300 MG PO ×3 (08:59→20:51)
[2023-12-18] MEDS: PHENobarbitaL 30 MG TABLET 60 MG PO (09:00)
[2023-12-18 11:30] VITALS: BP 120/58; PULSE 83; RESP 16; TEMP 36.6; O2SAT 97
--- NOTE | 2023-12-18 12:44 | P.PNIM_ITS ---
Subjective Subjective Date of Service: 12/18/23 Interval History: Doing well. Does not wish to engage in short-term rehab. Ambulating in room with assist Review of Systems Denies chest pain Denies shortness of breath Denies nausea vomiting diarrhea Denies fever chills Physical Exam 2 Vital Signs: Vital Signs: Last Vital Signs Temp 97.8 F 12/18/23 11:30 Pulse 83 12/18/23 11:30 Resp 16 12/18/23 11:30 BP 120/58 L 12/18/23 11:30 Pulse Ox 97 12/18/23 11:30 O2 Del Method Room Air 12/18/23 11:30 O2 Flow Rate 3 12/17/23 00:00 BMI result Body Mass Index 33.9 Const: Other: Awake alert no acute distress Resp: Other: Clear to auscultation bilaterally no rales rhonchi or wheezes Cardio: Other: No S4; positive S1-S2; no S3 murmurs rubs or gallops GI: Other: Soft nontender nondistended normoactive bowel sounds Extrem: Other: No edema bilaterally Objective Data Active Medications Acetaminophen (Acetaminophen 325 Mg Tablet) 650 mg PO Q6H PRN PRN Reason: Pain, Mild (Pain Scale 1-3), fever or headache Last Admin: 12/17/23 09:13 Dose: 650 mg Documented By: RENATE Al Hydroxide/Mg Hydroxide (Magnesium Hydrox/Alum Hydrox 30 Ml Oral.Susp) 30 ml PO Q4H PRN PRN Reason: Heartburn Alprazolam (Alprazolam 0.5 Mg Tablet) 1 mg PO QID PRN PRN Reason: Anxiety Last Admin: 12/18/23 09:00 Dose: 1 mg Documented By: RENATE Comments: MD esteves to give early Atorvastatin Calcium (Atorvastatin Calcium 10 Mg Tablet) 10 mg PO DAILY [facility] Last Admin: 12/18/23 08:59 Dose: 10 mg Documented By: RENATE Calcium Carbonate (Calcium Carbonate 750 Mg Tab.Chew) 750 mg PO Q4H PRN PRN Reason: Heartburn Enoxaparin Sodium (Enoxaparin Sodium 40 Mg/0.4 Ml Syringe) 40 mg SUBCUT Q24H [facility] Last Admin: 12/17/23 14:20 Dose: 40 mg Documented By: RENATE Cefazolin Sodium/Dextrose (Ancef) 2 gm in 50 mls @ 100 mls/hr IV POSTOP [place] Lactated Ringer's (Lr) 1,000 mls @ 80 mls/hr IVCONT .[id number] [facility] Last Admin: 12/18/23 06:04 Dose: 80 mls/hr Documented By: JAMESON Levothyroxine Sodium (Levothyroxine Sodium 50 Mcg Tablet) 50 mcg PO DAILY@0630 [facility] Last Admin: 12/18/23 06:03 Dose: 50 mcg Documented By: JAMESON Lisinopril (Lisinopril 40 Mg Tablet) 40 mg PO DAILY [facility]; Protocol Last Admin: 12/16/23 08:29 Dose: 40 mg Documented By: KJ Magnesium Hydroxide (Milk Of Magnesia 30 Ml Oral.Susp) 30 ml PO DAILY PRN PRN Reason: Constipation Melatonin (Melatonin 3 Mg Tablet) 6 mg PO BEDTIME PRN PRN Reason: Insomnia Morphine Sulfate (Morphine Sulfate 2 Mg/Ml Cartridge) 2 mg IVPUSH Q6H PRN; Protocol PRN Reason: Pain, Severe (Pain Scale 7-10) Last Admin: 12/18/23 09:45 Dose: 2 mg Documented By: RENATE Naloxone HCl (Naloxone Hcl 0.4 Mg/Ml Vial) 0.04 mg IVPUSH Q5M PRN PRN Reason: Excessive sedation or RR < 8 Ondansetron HCl (Ondansetron Hcl 4 Mg/2 Ml Vial) 4 mg IVPUSH Q8H PRN PRN Reason: Nausea and Vomiting Pharmacy Consult (Consult Rx Etoh Phenob Im/Po) 1 each MISCELLANE ONCE PRN; Protocol PRN Reason: Consult order Phenobarbital (Phenobarbital 30 Mg Tablet) 30 mg PO BID [facility]; Protocol Stop: 12/20/23 09:01 Phenobarbital (Phenobarbital 30 Mg Tablet) 30 mg PO DAILY [facility]; Protocol Stop: 12/22/23 09:01 Phenytoin Sodium (Phenytoin Sodium Extended 100 Mg Capsule) 300 mg PO TID [facility] Last Admin: 12/18/23 08:59 Dose: 300 mg Documented By: RENATE Polyethylene Glycol (Polyethylene Glycol 3350 17 Gm Powd.Pack) 17 gm PO DAILY PRN PRN Reason: Constipation Sodium Chloride (0.9 % Sodium Chloride Flush 3 Ml Syringe) 3 ml IVFLUSH QSHIFT [facility] Last Admin: 12/18/23 07:10 Dose: Not Given Documented By: RENATE Non-Admin Reason: IV Running Vitamin D (Cholecalciferol (Vitamin D3) 25 Mcg Tablet) 125 mcg PO DAILY [facility] Last Admin: 12/18/23 08:59 Dose: 125 mcg Documented By: RENATE Labs 12/17/23 05:57 12/18/23 07:26 Labs: Laboratory Results - last 24 hr 12/18/23 07:26 Hold Purple Top SEE NOTE Anion Gap 11 L Estim Creat Clear Calc 117.7 Estimated GFR > 60 Random Glucose 106 Calcium 8.9 Assessment and Plan (1) Closed intertrochanteric fracture of right hip: Status: Acute Plan 68 year old male with seizure d/o, HTN, HLD, anxiey disorder, hypothyroidism here with fall resulting in right hip fracture; status post ORIF 12/15 1.Right hip fracture d/t mechanical fall.. Status post ORIF -postop day 1 -Lovenox initiated -patient voices desire to return home; ambulating well in the presence of staff... Will ask PT to re-evaluate for safety in a.m. 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
[2023-12-18] MEDS: Enoxaparin Sodium 40 MG/0.4 ML SYRINGE SUBCUT (15:00)
[2023-12-18 15:25] VITALS: BP 148/70; PULSE 92; RESP 18; TEMP 36.6; O2SAT 98
--- NOTE | 2023-12-18 15:28 | MHC.CM.PN ---
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
[2023-12-18 19:47] VITALS: BP 150/70; PULSE 92; RESP 18; TEMP 36.8; O2SAT 100
[2023-12-18] MEDS: PHENobarbitaL 30 MG TABLET PO (20:51)
[2023-12-18] MEDS: 0.9 % Sodium Chloride Flush 3 ML SYRINGE IVFLUSH (20:52)
[2023-12-18 23:24] VITALS: BP 160/70; PULSE 83; RESP 16; TEMP 36.3; O2SAT 98
[2023-12-19 03:58] VITALS: BP 160/74; PULSE 80; RESP 18; TEMP 37.1; O2SAT 100
[2023-12-19] MEDS: Levothyroxine Sodium 50 MCG TABLET PO (06:24)
[2023-12-19] MEDS: ALPRAZolam 0.5 MG TABLET 1 MG PO ×2 (07:06→12:36)
[2023-12-19] MEDS: Phenytoin Sodium Extended 100 MG CAPSULE 300 MG PO ×2 (07:21→14:22)
[2023-12-19] MEDS: oxyCODONE HCl Immed Release 5 MG TABLET 10 MG PO ×3 (07:21→14:22)
[2023-12-19] MEDS: PHENobarbitaL 30 MG TABLET PO (07:21)
[2023-12-19] MEDS: Cholecalciferol (Vitamin D3) 25 MCG TABLET 125 MCG PO (07:21)
[2023-12-19] MEDS: Atorvastatin Calcium 10 MG TABLET PO (07:22)
[2023-12-19] MEDS: 0.9 % Sodium Chloride Flush 3 ML SYRINGE IVFLUSH (07:22)
[2023-12-19 07:38] VITALS: BP 173/75; PULSE 77; RESP 18; TEMP 36.2; O2SAT 98
[2023-12-19 09:24] VITALS: BP 173/75; PULSE 77; O2SAT 98
--- NOTE | 2023-12-19 10:21 | P.BOP_ITS ---
Brief Operative Note Date of Service: 12/19/23 Surgeon: Chris Turner MD Was an B2B Sales Manager used for this Procedure?: No
--- NOTE | 2023-12-19 10:21 | PM.OP ---
Brief Operative Note Date of Service: 12/19/23 Surgeon: Chris Turner MD Was an Cage/Vault Supervisor used for this Procedure?: No
--- NOTE | 2023-12-19 10:29 | PM.PNORT ---
Subjective Subjective Date of Service: 12/19/23 Interval history: POD1 s/p right hip IM Nail Patient is resting in bed comfortably No overnight events Pain is managed No additional complaints Physical Exam Vital Signs: Vital Signs: Last Vital Signs Temp 97.1 F 12/19/23 07:38 Pulse 77 12/19/23 09:24 Resp 18 12/19/23 07:38 BP 173/75 H 12/19/23 09:24 Pulse Ox 98 12/19/23 09:24 O2 Del Method Room Air 12/19/23 07:38 O2 Flow Rate 3 12/17/23 00:00 BMI result Body Mass Index 33.9 Const: General: cooperative, healthy appearing and no acute distress Resp: Effort & Inspection: normal respiratory effort and able to speak in complete sentences Cardio: Rate: regular rate Peripheral pulses: Peripheral pulses 2+ throughout GI: Palpation (GI): Soft to palpation Skin: Lesions: no lesions Rashes: no rashes Extrem: Other: right hip dressing saturated, but clean, and intact No active drainage from the incision site with dressing removal . Able to dorsi/plantar flex. Calf is supple and nontender. Sensation intact. Pedal pulse intact. Procedures Date of Service Date of Service: 12/19/23 Progress Note: A&P Assessment and plan (1) Closed intertrochanteric fracture of right hip: Status: Acute Plan Distal dressing replaced today due to saturation, patient tolerated this well Continue pain mgmnt Continue Lovenox for dvt ppx Continue PT/OT for rigth hip IM Nail - WBAT Dispo planning-Pending PT eval, pain mgmnt Time Spent With Patient Time: Total time managing care of this patient today ____ minutes. Quality Stroke Does the patient have a stroke diagnosis?: No VTE Prior VTE?: No VTE Risk Level:: Medical - moderate - high VTE Device Contraindication: N/A - Device Ordered VTE Drug Contraindication: Treatment Not Indicated
--- NOTE | 2023-12-19 10:36 | MHC.CM.PN ---
Per MD rounds patient medically cleared for dc home w/ [facility]. Patient's sister, who lives next door, will assist PRN. Patient's friend is delivering a walker today. Referral to [facility], who will see patient prior to dc. BLS transport scheduled for 2pm. RNMD and patient aware.
[2023-12-19 12:00] VITALS: BP 184/82; PULSE 92; RESP 20; TEMP 36.2; O2SAT 99
--- NOTE | 2023-12-19 13:03 | P.DS_ITS ---
DS: Providers Provider Date of Service: 12/19/23 Date of admission: 12/16/23 03:06 Date of discharge: 12/19/23 Primary care physician: Glen Williamson MD Consults: 12/16/23 02:32 Consult to Orthopedics Routine Consulting Provider: [facility] Reason for consultation: right hip fracture Has provider been notified: No 12/16/23 04:12 Consult to Cardiology Routine Consulting Provider: [facility] Reason for consultation: preop, abnormal ecg Has provider been notified: Yes DS: Diagnosis Discharge Diagnosis (1) Closed intertrochanteric fracture of right hip: Status: Acute DS: Summary Hospital Course Hospital Course: 8-year-old male with a history of seizure disorder, hypertension, hyperlipidemia, anxiety disorder, and hypothyroidism presented after a fall resulting in a right hip fracture. He states that he was doing dishes and wiping the countertop when he slipped and fell, denying head injury, syncope, or seizure. He reports drinking 3 glasses of wine daily, though his son believes he drinks more. His blood alcohol level was 52 on presentation, and he has no symptoms of alcohol withdrawal. A hip X-ray showed a right femur fracture. Hospital course Patient admitted to general medical floor and started on CIWA scale concern about alcohol withdrawal. Prior to hospitalization his CIWA has remained 0. He was seen in consultation by Orthopedics and after cardiac consultation for clearance was taken to the OR on 12/16/2023 for internal fixation. His postop course was essentially unremarkable. Initially physical therapy recommended short-term rehab however the patient was adamant about returning home. Re- evaluate demonstrated that home would be an option with walker in services. At this point in time he is medically acceptable for same Time Attestation Discharge Coordination Time (in mins): 35 Quality: Safe Use of Opioids Does Pt have an Active Cancer Diagnosis on the Problem List?: No Quality: Stroke Does the patient have a stroke diagnosis?: No Physical Exam Vital Signs: Vital Signs: Last Vital Signs Temp 97.1 F 12/19/23 12:00 Pulse 92 12/19/23 12:00 Resp 20 12/19/23 12:00 BP 184/82 H 12/19/23 12:00 Pulse Ox 99 12/19/23 12:00 O2 Del Method Room Air 12/19/23 12:19 O2 Flow Rate 3 12/17/23 00:00 BMI result Body Mass Index 33.9 Const: Other: Awake alert no acute distress Resp: Other: Clear to auscultation bilaterally no rales rhonchi or wheezes Cardio: Other: No S4; positive S1-S2; no S3 murmurs rubs or gallops GI: Other: Soft nontender nondistended normoactive bowel sounds Extrem: Other: No edema bilaterally Discharge Plan Discharge Anticipated Discharge Date/Time: 12/19/23 13:00 Patient Disposition: Home Health Service Discharge Diagnosis: Right hip fracture Referrals: Tavon Mckeon [Outside] - 3-5 Days (Tavon will call you to schedule home PT appointments) Glen Williamson MD [Primary Care Provider] - 1 Week Susy Mckeon PA-C [Physician Outpatient Physical Therapist Assistant] - 01/03/24 2:30 pm (01/03/24 14:30) Discharge Medications: New oxycodone 10 mg tablet 10 mg PO Q8H MDD 30 PRN (Reason: pain) Qty: 20 0RF Rx Instructions: Partial Fill upon patient request. enoxaparin [Lovenox] 40 mg/0.4 mL syringe 40 mg subcut DAILY Qty: 16.8 0RF Continued alprazolam 1 mg tablet 1 mg PO QID PRN (Reason: Anxiety) simvastatin 10 mg tablet 10 mg PO DAILY phenytoin sodium extended 100 mg capsule 300 mg PO DAILY levothyroxine 50 mcg tablet 50 mcg PO DAILY lisinopril 40 mg tablet 40 mg PO DAILY cholecalciferol (vitamin D3) [Vitamin D3] 125 mcg (5,000 unit) Tablet 125 mcg PO DAILY Discharge Orders: Discharge Order (Routine); Ordered 12/19/23 Ordered By: Santos Panchal Diet: Advance to usual diet Activity on Discharge: As tolerated Stand Alone Forms: Patient Portal Discharge page Print Language: Guyanese Care Plan Goals: Resume all medicines as taken prior to hospitalization Health Concerns: Utilize oxycodone 10 mg every 8 hours for pain as needed Plan of Treatment: Gait training, strengthening, ADLs Continue Lovenox for dvt ppx x6 weeks Keep dressing clean, dry and intact-no showering or tub baths Follow up with Orthopedics in 2 weeks Assessment: See discharge summary
--- NOTE | 2023-12-19 13:17 | P.F2F_ITS ---
Service Date Service Date: 12/19/23 Encounter Date of encounter: 12/19/23 Encounter: Acute hospitalization Reasons for Services Signs and symptoms assessed: FX right hip Reason for nursing home: medication management, medication treatment and teach disease management Reason for physical therapy: home safety and mobility, therapeutic exercises, restore joint function and gait/transfer training Homebound: Leaving the home is medically contraindicated at this time without the asist of a device and/or another person due th the listed conditions above and below. Reason homebound: unsteady gait / fall risk and unable to drive Certification: Based on the above findings, I certify that this patient is confined to the home and needs intermittent nursing home care, physical therapy and/or speech therapy, or continues to need occupational therapy. The patient is under my care, and I have initiated the establishment of the plan of care. The patient will be followed by a physician who will periodically review the plan of care. Time Spent With Patient Time: Total time managing care of this patient today ____ minutes.
[2023-12-19] MEDS: Enoxaparin Sodium 40 MG/0.4 ML SYRINGE SUBCUT (13:25)
--- NOTE | 2023-12-27 06:49 | P.OP_ITS ---
Operative Note Operative Note Date of Service: 12/16/23 Narrative: Date of Service: 12/16/23 Pre-op diagnosis: Right hip IT fx Post-op diagnosis: same Procedure: Right hip IMN Implants: [place] 170x 13 130 deg with 115 mm hip screw and 37.5 distal interlock Surgeon: Brandon Augustin MD Anesthesia: GLMA and local Was an Blocker Metal Base used for this Procedure?: No Estimated blood loss (mL): 150 IV fluids (mL): 1,000 Pathology: none sent Condition: stable Procedure in detail: Patient was brought to the operating room. Pateint was placed supine on the HANA table and prepped and draped in standard sterile fashion. Time-out was called to identify proper site procedure proper surgeon and IV antibiotics per weight were administered. He was positioned on the fracture table and a traction and slight internal rotation were performed and biplanar fluoroscopy confirmed initial fracture reduction. I then made a stab incision proximal to the greater trochanter in using a guidewire made a entry point just lateral to the tip of the greater trochanter and placed a guidewire into the femoral metadiaphysis. I then over-reamed with 15 mm Reamer placed my ball-tip guidewire down distally in the femur and selected a shrt IMN. I reamed up to a 13. I then placed a 170x13 130 deg IM nail. I then turned my attention to the hip screw where I used a guidewire and a tip apex distance of less than 1.5 measured a 115mm hip screw. I then pre drilled and placed a hip screw using biplanar fluoroscopy. Once I was happy with the position of the hip screw I turned my attention to the distal aspect of the nail. Using the static guide I placed 1 static distal interlocking screw in standard AO technique. I then removed all I then placed my set screw proximally and removed all extraneous instrumentation. Final biplanar radiographs were taken. I was satisfied with the position of the hard serrano and the fracture reduction. I think copiously irrigated closed with absorbable sutures celso and injected 30 mL of into the area of the incisions. Traction was let down patient was placed in sterile dressing awakened from anesthesia brought to recovery room stable condition there were no known complications.
== END 2023-12-19 14:24 | disposition home health service (06) | DRG 482 ==
LOC: HO.ED 12-16 02:27 → HO.EDOVER 12-16 03:11 → HO.S3 12-16 11:27
PROVIDERS: Orthopaedic Surgery; Admitting Provider Internal Medicine; Emergency Provider Emergency Medicine; PCP Internal Medicine; Visit Provider Hospitalist
PROC: 0QS636Z Reposition Right Upper Femur with Intramedullary Internal Fixation Device, Percutaneous Approach (ICD-10-PCS; principal; 2023-12-16 13:30)
DX: S72.141A Displaced intertrochanteric fracture of right femur, initial encounter for closed fracture (principal); W19.XXXA Unspecified fall, initial encounter; Y90.2 Blood alcohol level of 40-59 mg/100 ml; G40.909 Epilepsy, unspecified, not intractable, without status epilepticus; I45.10 Unspecified right bundle-branch block; I10 Essential (primary) hypertension; F10.10 Alcohol abuse, uncomplicated; E78.5 Hyperlipidemia, unspecified; F41.9 Anxiety disorder, unspecified; E03.9 Hypothyroidism, unspecified; Z79.890 Hormone replacement therapy; Z79.899 Other long term (current) drug therapy
CPT/HCPCS: 36415; 71045; 73502; 73552; 80048; 80076; 80307; 81003; 83735; 83880; 85025; 85610; 86850; 86900; 86901; 93005; 93306; 97116; 97161; 97166; 99285; C1713; J0690; J1170; J1596; J1650; J2250; J2270; J2405; J2560; J2704; J2795; J3010; J7120; Q9957

== ENCOUNTER → 2023-12-16 03:06 | Outpatient (BNV) | payer MEDICARE, SELFPAY | PROVIDERS: Admitting Provider Internal Medicine; Emergency Provider Emergency Medicine; PCP Internal Medicine; Visit Provider Family Medicine | DX: S72.141A Displaced intertrochanteric fracture of right femur, initial encounter for closed fracture (principal) | CPT/HCPCS: 99223; 99232; 99239; 99499; G0180 ==

== ENCOUNTER → 2023-12-16 03:06 | Outpatient (BNV) | payer MEDICARE, SELFPAY | PROVIDERS: Admitting Provider Internal Medicine; Emergency Provider Emergency Medicine; PCP Internal Medicine; Visit Provider Internal Medicine Cardiovascular Disease | DX: R94.31 Abnormal electrocardiogram [ECG] [EKG] (principal); Z01.810 Encounter for preprocedural cardiovascular examination; S72.143A Displaced intertrochanteric fracture of unspecified femur, initial encounter for closed fracture | CPT/HCPCS: 93306; 99223 ==

== ENCOUNTER → 2023-12-16 03:06 | Outpatient (BNV) | payer MEDICARE, SELFPAY | PROVIDERS: Admitting Provider Internal Medicine; Emergency Provider Emergency Medicine; PCP Internal Medicine | DX: S72.141A Displaced intertrochanteric fracture of right femur, initial encounter for closed fracture (principal) | CPT/HCPCS: 27245; 99024; 99222 ==

== ENCOUNTER 2023-12-26 04:29 | Emergency (ER) | payer MEDICARE, SELFPAY ==
[2023-12-26] VITALS (10 sets, daily range): BP systolic 116–178; BP diastolic 50–100; PULSE 15–95; RESP 16–77; TEMP 36.6–36.8; O2SAT 97–100; BMI 36.3
--- NOTE | ~2023-12-26 | XR_ITS ---
EXAMINATION: XR HIP, RIGHT CLINICAL INFORMATION: Status post right hip surgery more than one week ago, complains of right hip pain COMPARISON: X-ray pelvis and right hip on 12/15/2023 TECHNIQUE: Frontal x-ray of the pelvis, Frontal and Crosstable lateral x-rays of right hip. FINDINGS: BONES: Right femoral intertrochanteric fracture is fixed by interlocking hip compression screw and proximal right femoral gamma nail, proximal shaft transfixion screw with satisfactory alignment. Severe subcortical cystic erosions are seen in the right femoral head and acetabulum. There is mild flattening of superior right femoral head. Lateral right acetabular osteophytosis is also present.. Similar extensive subcortical cystic erosions are seen in the left femoral head with a small lateral ring osteophyte. JOINTS: Alignment of hip joint is normal. There is complete loss of bilateral hip joint spaces. SOFT TISSUE: Surgical clips are seen in lateral right hip.. XR/XR hip RT w PEL1V IMPRESSION: 1. Interval ORIF of right femoral intertrochanteric fracture with satisfactory alignment. 2. Unchanged Severe bilateral hip osteoarthritis, more severe in the right hip. 3. Flattening of superior right femoral head is seen. Underlying avascular necrosis cannot be excluded. Electronically signed by: Lizbeth Thayer MD 12/26/2023 07:30 AM EDT
--- NOTE | 2023-12-26 04:51 | ED.LOWEXIN ---
HPI - Extremity Injury (Lower) General Chief Complaint: Extremity Injury, Lower Stated Complaint: leg pain/decreased movement Time Seen by Provider: 12/26/23 04:51 Source: patient Mode of arrival: EMS Limitations: no limitations History of Present Illness ED Provider: angie KIM Narrative: Patient is status post right intertrochanteric fracture ORIF with [place] and screws on 12/16/2023 was trying to position himself in the bed noticed popping sound and pain in the right hip just prior to arrival no deformity Related Data Home Medications ?Medication ?Instructions ?Recorded ?Confirmed alprazolam 1 mg tablet 1 mg PO QID PRN Anxiety 12/16/23 12/16/23 cholecalciferol (vitamin D3) 125 125 mcg PO DAILY 12/16/23 12/16/23 mcg (5,000 unit) tablet (Vitamin D3) levothyroxine 50 mcg tablet 50 mcg PO DAILY 12/16/23 12/16/23 lisinopril 40 mg tablet 40 mg PO DAILY 12/16/23 12/16/23 phenytoin sodium extended 100 mg 300 mg PO DAILY 12/16/23 12/16/23 capsule simvastatin 10 mg tablet 10 mg PO DAILY 12/16/23 12/16/23 Previous Rx's ?Medication ?Instructions ?Recorded enoxaparin 40 mg/0.4 mL 40 mg (0.4 mL) subcut DAILY #16.8 12/19/23 subcutaneous syringe (Lovenox) mL oxycodone 10 mg tablet 10 mg PO Q8H PRN pain #20 tabs 12/19/23 Allergies Allergy/AdvReac Type Severity Reaction Status Date / Time No Known Allergies Allergy Verified 12/26/23 04:42 Review of Systems Review of Systems: Yes all other systems are reviewed and are negative [facility] Past Medical History Medical History Alcohol abuse, daily use Agoraphobia Hypertension Seizure disorder Social History Social History Household Members: None Housing: House Are you a primary cna caregiver to a significant other at home: No Do you presently have visiting nurse or other home services: No Alcohol intake: current Alcohol intake frequency: 3 or more drinks per day Alcohol type: wine Patient Tobacco Use Status: Never used Tobacco Second Hand Smoke Exposure: No Advance Directives: No Advance Directives Information Provided: Yes Do you have a plan to hurt others: No Plan service: No Physical Exam Vital Signs: Vital Signs: Last Vital Signs Temp 98.1 F 12/26/23 06:30 Pulse 15 L 12/26/23 06:30 Resp 77 H 12/26/23 06:30 BP 116/50 L 12/26/23 06:30 Pulse Ox 99 12/26/23 06:30 O2 Del Method Room Air 12/26/23 06:30 BMI result Body Mass Index 36.3 Appearance: Alert. Oriented X3. No acute distress. Eyes: No pallor or icterus ENT: Pharynx normal. Oral Mucosa moist Neck: Normal inspection. Neck supple. CVS: Normal heart rate and rhythm. Pulses normal. Respiratory: No respiratory distress. Equal air entry bilateral, no wheezing/rales/rhonchi Abdomen: Soft and nontender. Bowel sounds are present, no mass palpable, no CVA tenderness Skin: Skin warm and dry. Normal skin color. Normal skin turgor. Extremities: No lower extremity edema. No calf tenderness tenderness right greater trochanteric area no deformity Neuro: Oriented X 3. No motor deficit. No sensory deficit.No cerebellar signs , cranial nerves II-XII intact Medications Administered Discontinued Medications Generic Name Dose Route Start Last Admin Trade Name Freq PRN Reason Stop Dose Admin Morphine Sulfate 4 mg 12/26/23 04:57 12/26/23 05:05 Morphine Sulfate 4 Mg/Ml Cartridge IVPUSH 12/26/23 04:58 4 mg ONCE ONE Administration Protocol Ondansetron HCl 4 mg 12/26/23 04:57 12/26/23 05:05 Ondansetron Hcl 4 Mg/2 Ml Vial IVPUSH 12/26/23 04:58 4 mg ONCE ONE Administration Medical Decision Making Medical Decision Making MDM Narrative: Patient is post off right hip surgery complaining of pain after moving his right leg. X-ray was compared from the fluoroscopy view seems to be hardware in place final report is pending patient is signed out to Dr. Hearn for evaluation and disposition Discharge Plan Discharge Clinical Impression: Closed intertrochanteric fracture of femur Patient Disposition: Still a Patient Prescriptions: No Action alprazolam 1 mg tablet 1 mg PO QID PRN (Reason: Anxiety) simvastatin 10 mg tablet 10 mg PO DAILY phenytoin sodium extended 100 mg capsule 300 mg PO DAILY levothyroxine 50 mcg tablet 50 mcg PO DAILY lisinopril 40 mg tablet 40 mg PO DAILY cholecalciferol (vitamin D3) [Vitamin D3] 125 mcg (5,000 unit) Tablet 125 mcg PO DAILY oxycodone 10 mg tablet 10 mg PO Q8H MDD 30 PRN (Reason: pain) Qty: 20 0RF Rx Instructions: Partial Fill upon patient request. enoxaparin [Lovenox] 40 mg/0.4 mL syringe 40 mg subcut DAILY Qty: 16.8 0RF Print Language: Kyrgyz
[2023-12-26] MEDS: Morphine Sulfate 4 MG/ML CARTRIDGE IVPUSH (05:05)
[2023-12-26] MEDS: ondansetron HCL 4 MG/2 ML VIAL IVPUSH (05:05)
--- NOTE | 2023-12-26 05:33 | PC.NURSE ---
Patient CASPERA from home for evaluation of pain in right hip. Patient reports he was sitting in bed trying to shift position when he heard a loud popping sound with sudden, severe pain in right hip. Patient reports he undergone a surgical procedure on Tuesday to repair fractured femur s/p fall. Patient self medicated himself with Oxycodone 5 mg around 22:00 and 10 mg around 03:00 am with no relief in pain. 20 G IV line established in R [facility], pateint medicated per JUN and taken to x-ray.
[2023-12-26] MEDS: HYDROmorphone HCl 2 MG/ML VIAL IVPUSH (07:55)
--- NOTE | 2023-12-26 12:55 | PC.NURSE ---
patient ambulated with 1 standby assit RW 15ft to room door and back to bed. Pt states he feels comfortable to go home and has good family support very closeby. AAXO3 speaking clear full sentences states pain is relieve and only 3/10
[2023-12-26] MEDS: ALPRAZolam 0.5 MG TABLET 1 MG PO (14:00)
== END 2023-12-26 15:30 | disposition home or self-care (01) ==
PROVIDERS: Emergency Provider Emergency Medicine Emergency Medical Services
DX: S72.141A Displaced intertrochanteric fracture of right femur, initial encounter for closed fracture (principal); X58.XXXA Exposure to other specified factors, initial encounter; Y93.9 Activity, unspecified; Y92.9 Unspecified place or not applicable; Y99.9 Unspecified external cause status; Z98.890 Other specified postprocedural states; M25.551 Pain in right hip
CPT/HCPCS: 73502; 96374; 96375; 99284; J1170; J2270; J2405

== ENCOUNTER 2024-01-03 14:19 | Outpatient (AMB) | payer MEDICARE, SELFPAY ==
--- NOTE | 2024-01-03 14:28 | MHC.OFFVIS ---
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 Patient reports he is feeling better today. He has been taking his pain medication as need but mainly taking his Tylenol. 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 Brandon Augustin. The patient presented to the ED on 12/26/23 with the complaint of sudden severe right hip pain associated with popping, x2 episodes. He tried oxycodone 5 mg PO and oxycodone 10 mg PO without any benefit. X-rays of the right hip were obtained. He was recommended to continue his prescription pain medication. While in the office today, the patient reports he is feeling better today. He is ambulating with the use of a walker today. He mentions he has been taking his pain medication PRN. He mainly takes OTC Tylenol PRN for pain relief. The patient is accompanied by his nephew today. [facility] Medical History Alcohol abuse, daily use Agoraphobia Hypertension Seizure disorder Social History (Updated 01/03/24 @ 14:31 by Farhan Marie) Household Members: None Housing: House Are you a primary animal caretaker to a significant other at home: No Do you presently have visiting nurse or other home services: No Alcohol intake: current Alcohol intake frequency: 3 or more drinks per day Alcohol type: wine Patient Tobacco Use Status: Never used Tobacco Second Hand Smoke Exposure: No service: No Current occupational status: retired Review of Systems Const All systems reviewed & are unremarkable except as noted in HPI and below Physical Exam Vital Signs: BMI result Body Mass Index 33.9 Const General: cooperative, healthy appearing and no acute distress Resp Effort & Inspection: normal respiratory effort and able to speak in complete sentences Cardio Rate: regular rate Peripheral pulses: Peripheral pulses 2+ throughout GI Palpation (GI): Soft to palpation Skin Lesions: no lesions Rashes: no rashes Extrem Other: Right hip: Incision sites are clean, dry, and intact. Lutz intact. No surrounding erythema or drainage. No signs of infection. Good internal and external rotation. NVI. Assessment & Plan Assessment & Plan (1) Closed intertrochanteric fracture of right hip: Code(s): S72.141A - Displaced intertrochanteric fracture of right femur, initial encounter for closed fracture Category: Medical Plan Mr. Olivarez is a 68-year-old male who presents in the office, as a new patient, for a 2 weeks status post right femoral IM nailing which was performed on 12/16/[address] Brandon Augustin. The patient presented to the ED on 12/26/23 with the complaint of sudden severe right hip pain associated with popping, x2 episodes. He tried oxycodone 5 mg PO and oxycodone 10 mg PO without any benefit. X-rays of the right hip were obtained. He was recommended to continue his prescription pain medication. While in the office today, the patient reports he is feeling better today. He is ambulating with the use of a walker today. He mentions he has been taking his pain medication PRN. He mainly takes OTC Tylenol PRN for pain relief. The patient is accompanied by his nephew today. Jamie were removed, and steri-strips were applied. The patient will continue with home physical therapy to work on glute, core and quad strengthening. Follow-up will be in 4 weeks with x-rays, or sooner if needed. X-rays of the right hip, obtained on 12/26/23, revealed: 1. Interval ORIF of right femoral intertrochanteric fracture with satisfactory alignment. 2. Unchanged Severe bilateral hip osteoarthritis, more severe in the right hip. 3. Flattening of the superior right femoral head is seen. Underlying avascular necrosis cannot be excluded. Patient Instructions: Scribed by Chinyere Lobato medical office supervisor, for Susy Mckeon PA-C on 01/03/24 at 2:20 pm EST. Coding Level of Care Code Global (42024) Diagnoses Closed intertrochanteric fracture of right hip S72.141A
[2024-01-03 14:31] VITALS: BMI 33.9
== END 2024-01-03 14:58 | disposition home or self-care (01) ==
PROVIDERS: PCP Internal Medicine; Visit Provider Physician Assistant
DX: S72.141A Displaced intertrochanteric fracture of right femur, initial encounter for closed fracture (principal)
CPT/HCPCS: 99024

== ENCOUNTER → 2024-01-03 14:19 | Outpatient (BNVA) | payer MEDICARE, SELFPAY | PROVIDERS: PCP Internal Medicine; Visit Provider Physician Assistant | DX: S72.141D Displaced intertrochanteric fracture of right femur, subsequent encounter for closed fracture with routine healing (principal); X58.XXXD Exposure to other specified factors, subsequent encounter; Z98.890 Other specified postprocedural states | CPT/HCPCS: 99212 ==

== ENCOUNTER 2024-01-31 11:14 | Outpatient (AMB) | payer MEDICARE, SELFPAY ==
--- NOTE | 2024-01-31 11:33 | A.OFFVIS_ITS ---
Intake Visit Reasons: PO right hip IM Nail 12/16/23 NE Intake Note: Sher is a 68 year old male who presents today with a walker and his nephew as a new patient/post op of his right hip IM Nail 12/16/23 NE. Patient reports he is doing well, having mild discomfort. Allergies No Known Allergies Allergy (Verified 01/31/24 11:37) HPI HPI PO right hip IM Nail 12/16/23 NE: Details: 68-year-old male who presents in the office today status post right femoral IM nailing which was performed on 12/16/[address] Augustin. I last saw the patient in the office on 01/03/24 when she was recommended to continue home physical therapy to work on glute, core and quad strengthening. While in the office today, The patient presents with a walker. He reports mild discomfort; otherwise, he is doing well. The patient is accompanied by his nephew today. [facility] Medical History Alcohol abuse, daily use Agoraphobia Hypertension Seizure disorder Social History Household Members: None Housing: House Are you a primary healthcare administration intern to a significant other at home: No Do you presently have visiting nurse or other home services: No Alcohol intake: current Alcohol intake frequency: 3 or more drinks per day Alcohol type: wine Patient Tobacco Use Status: Never used Tobacco Second Hand Smoke Exposure: No service: No Current occupational status: retired Review of Systems Const All systems reviewed & are unremarkable except as noted in HPI and below Physical Exam Const General: cooperative, healthy appearing and no acute distress Resp Effort & Inspection: normal respiratory effort and able to speak in complete sentences Cardio Rate: regular rate Peripheral pulses: Peripheral pulses 2+ throughout GI Palpation (GI): Soft to palpation Skin Lesions: no lesions Rashes: no rashes Extrem Other: Right hip: Normal to inspection. No ecchymosis, erythema, or edema. Prior incision sites are well approximated and healed. Good internal and external rotation. NVI. Assessment & Plan Assessment & Plan (1) Closed intertrochanteric fracture of right hip: Code(s): S72.141A - Displaced intertrochanteric fracture of right femur, initial encounter for closed fracture Category: Medical Plan Mr. Horne is a 68-year-old male who presents in the office today status post right femoral IM nailing which was performed on 12/16/[address] Augustin. I last saw the patient in the office on 01/03/24 when she was recommended to continue home physical therapy to work on glute, core and quad strengthening. While in the office today, The patient presents with a walker. He reports mild discomfort; otherwise, he is doing well. The patient is accompanied by his nephew today. The patient will continue his home physical therapy. He has agoraphobia and is unable to attend outpatient physical therapy. He will continue to ambulate with the use of a walker until cleared by physical therapy. He will continue to work on glute, core, quad strengthening as well as gait training. Follow-up will be in 6 weeks or sooner if needed. X-rays of the right hip, which were obtained while in the office today and were reviewed by me, Susy Mckeon PA-C, revealed: Intact orthopedic hardware with routine healing. Orders: Orders XR femur RT 2V 01/31/24 S72.009A - Fracture of unspecified part of neck of unspecified femur, initial encounter for closed fracture, S72.141A - Displaced intertrochanteric fracture of right femur, initial encounter for closed fracture Patient Instructions: Scribed by Chinyere Lobato medical support assistant, for Susy Mckeon PA-C on 01/31/24 at 12:15 pm EST. Coding Level of Care Code Global (35196) Diagnoses Closed intertrochanteric fracture of right hip S72.141A
== END 2024-01-31 12:12 | disposition home or self-care (01) ==
LOC: HO.HOS 11:15
PROVIDERS: PCP Internal Medicine; Visit Provider Physician Assistant
DX: S72.141A Displaced intertrochanteric fracture of right femur, initial encounter for closed fracture (principal)
CPT/HCPCS: 99024

== ENCOUNTER 2024-01-31 12:44 | Outpatient (REF) | payer MEDICARE, SELFPAY ==
--- NOTE | ~2024-01-31 | XR_ITS ---
EXAMINATION: XR FEMUR RIGHT 5 VIEWS CLINICAL INFORMATION: Fracture of unspecified part of neck of unspecified femur, initial encounter for closed fracture S72.009A. COMPARISON: Right hip radiograph 12/26/2023 TECHNIQUE: AP and lateral views of the right femur were obtained, 5 images. FINDINGS: Intact right femoral intramedullary nail and dynamic hip compression screw. No acute periprosthetic fracture. Loose fracture fragment superior to the greater trochanter, similar to prior. Right intertrochanteric fracture lucency remains visible with signs of interval healing including bony callus formation and periosteal reaction. The remainder of the femur is intact. Severe right hip arthrosis again seen with joint space narrowing, flattening of the femoral head, subchondral cysts and osteophytosis. The femoral head remains well seated within the acetabulum. The visualized pelvis is intact. The visualized knee joint is in anatomic alignment. Arterial calcifications noted. XR/XR femur RT 2V IMPRESSION: 1. Intact right femoral intramedullary nail and dynamic hip compression screw. No acute periprosthetic fracture. 2. Right intertrochanteric fracture lucency remains visible with signs of interval healing. 3. Severe right hip arthrosis. Electronically signed by: Cary Garnett DO 03/16/2024 09:36 AM [facility]
== END 2024-01-31 12:45 | disposition home or self-care (01) ==
LOC: HO.HOSX 12:44
PROVIDERS: Visit Provider Physician Assistant
DX: Z96.641 Presence of right artificial hip joint (principal); S72.009A Fracture of unspecified part of neck of unspecified femur, initial encounter for closed fracture; S72.141A Displaced intertrochanteric fracture of right femur, initial encounter for closed fracture
CPT/HCPCS: 73552; 99212

== ENCOUNTER 2024-03-15 10:03 | Outpatient (REF) | payer MEDICARE, SELFPAY | END 2024-03-15 10:04 | disposition home or self-care (01) | LOC: HO.HOSX 10:03 | PROVIDERS: Visit Provider Physician Assistant | DX: Z13.89 Encounter for screening for other disorder (principal) ==

== ENCOUNTER 2024-03-16 08:43 | Outpatient (REF) | payer MEDICARE, SELFPAY | END 2024-03-16 08:44 | disposition home or self-care (01) | LOC: HO.HOSX 08:43 | PROVIDERS: Visit Provider Physician Assistant | DX: S72.001A Fracture of unspecified part of neck of right femur, initial encounter for closed fracture (principal); Z98.890 Other specified postprocedural states | CPT/HCPCS: 73552; 99212 ==

== ENCOUNTER 2024-03-16 09:25 | Outpatient (AMB) | payer MEDICARE, SELFPAY ==
--- OUTSIDE RECORDS SUMMARY | 2024-03-16 09:28 | XMS_ITS | Clinical Summary ---
Author Organization Unknown Care Team Providers Care Truer Pinion And Wheel Name Role Phone SALINAS GARDNER, JOSH Unavailable Unavailable REAGAN ([facility]) [facility] - PT, DERRICK Unavailable Unavailable CATRACHITA ([facility]) [facility] - WILDLIFE CONSERVATION OFFICER, FRANKLIN Unavailable Un available DOTTY RN, LOR Unavailable Unavailable Payers Payer Name Policy Type Policy Number Effective Date Expira tion Date MEDICARE - [facility] - PD [id number] Problems Condition Name Condition Details Condition Category Status Onset Date Resolution Date Last Treatment Date Treating Clinician Comments DISPL INTERTROCH FX R FEMUR, SUBS FOR CLOS FX W ROUTN HEAL Active 04-04 00:00: 00 EPILEPSY, UNSP, NOT INTRACTABLE, WITHOUT STATUS EPILEPTICUS Active 04-04 00:00: 00 ALCOHOL DEPENDENCE, UNCOMPLICATE D Active 04-04 00:00: 00 ESSENTIAL (PRIMARY) HYPERTENSION Active 04-04 00:00: 00 ANXIETY DISORDER, UNSPECIFIED Active 04-04 00:00: 00 HYPOTHYROIDI SM, UNSPECIFIED Active 04-04 00:00: 00 HYPERLIPIDEM IA, UNSPECIFIED Active 04-04 00:00: 00 ALCOHOL USE, UNSPECIFIED, UNCOMPLICATE D Active 04-04 00:00: 00 FX UNSP PART OF NK OF R FEMR, SUBS FOR CLOS FX W ROUTN HEAL Active 04-04 00:00: 00 HISTORY OF FALLING Active 04-04 00:00: 00 [facility] (CURRENT) USE OF ANTICOAGULAN TS Active 04-04 00:00: 00 [facility] (CURRENT) USE OF OPIATE ANALGESIC Active 04-04 00:00: 00 Allergies, Adverse Reactions, Alerts Allergy Name Allergy Type Status Severity Reaction(s) Onset Date Inactive Date Treating Clinician Comments NKA Propensity to adverse reactions Active 2023-12 10:08:1 9 Medications Ordered Medication Name Filled Medication Name Start Date Stop Date Current Medication? Ordering Clinician Indication Dosage Frequency Signature (SIG) Comments Components alprazolam 1 mg tablet 11-29 00:00: 00 Yes [id number] Per instruc tions FOUR TIMES DAILY NEEDED Per instructio ns FOUR TIMES DAILY NEEDED (route: oral) Med Classific ation: Central Nervous System Agents levothyroxi ne 50 mcg tablet 11-29 00:00: 00 Yes [id number] Per instruc tions EVERY DAY Per instructio ns EVERY DAY (route: oral) Med Classific ation: Endocrine lisinopril 40 mg tablet 11-29 00:00: 00 Yes [id number] Per instruc tions EVERY DAY Per instructio ns EVERY DAY (route: oral) Med Classific ation: Cardiovas cular Therapy Agents phenytoin sodium extended 100 mg capsule 11-29 00:00: 00 Yes [id number] Per instruc tions THREE TIMES DAILY Per instructio ns THREE TIMES DAILY (route: oral) Med Classific ation: Central Nervous System Agents enoxaparin 40 mg/0.4 mL subcutaneou s syringe 12-20 00:00: 00 Yes [id number] 40 mg DAILY 40 mg DAILY (route: subcutaneo us) Med Classific ation: Hematolog ical Agents oxycodone 10 mg tablet 12-20 00:00: 00 Yes [id number] Per instruc tions EVERY 8 HOURS Per instructio ns EVERY 8 HOURS (route: oral) Med Classific ation: Analgesic , Anti-infl ammatory or Antipyret ic vitamin D3 125 mcg (5,000 unit)-vitam in K2 100 mcg capsule 12-20 00:00: 00 Yes [id number] 1 capsule DAILY 1 capsule DAILY (route: oral) Med Classific ation: Electroly te Balance-N utritiona l Products Immunizations Ordered Immunization Name Filled Immunization Name Date Status Comments Refusal Reason COVID-19, COVID-19 2023-04-04 00:00:00 INFLUENZA, TIV (INACTIVATED) 2023-04-04 00:00:00 SHINGLES, TIV (INACTIVATED) 2023-03-04 00:00:00 Vital Signs Vital Name Observation Time Observation Value Commen ts Temperature 2024-03-08 14:30:00.000 97.4 [degF] Temperature 2024-03-06 14:27:00.000 97.4 [degF] Temperature 2024-02-29 14:28:00.000 97.2 [degF] Pulse 2024-03-08 14:30:00.000 74 /min Pulse 2024-03-06 14:27:00.000 72 /min Pulse 2024-02-29 14:28:00.000 68 /min Respirations 2024-03-08 14:30:00.000 18 /min Respirations 2024-03-06 14:27:00.000 18 /min Respirations 2024-02-29 14:28:00.000 18 /min Systolic Blood Pressure 2024-03-08 14:30:00.000 126 mm [Hg] Systolic Blood Pressure 2024-03-06 14:27:00.000 124 mm [Hg] Systolic Blood Pressure 2024-02-29 14:28:00.000 126 mm [Hg] Diastolic Blood Pressure 2024-03-08 14:30:00.000 74 mm [Hg] Diastolic Blood Pressure 2024-03-06 14:27:00.000 70 mm [Hg] Diastolic Blood Pressure 2024-02-29 14:28:00.000 72 mm [Hg] Plan of Treatment Planned Activity Planned Date Details Comments Future Scheduled Test PHYSICAL T HERAPIST TO EVALUATE PATIENT SECONDARY TO FUNCTIONAL DEFICITS/SAFETY CONCERNS. [code = PHYSICAL THERAPIST TO EVALUATE PATIENT SECONDARY TO FUNCTIONAL DEFICITS/SAFETY CONCERNS.] Future Scheduled Test PHYSICAL T HERAPIST TO ASSESS BEST PRACTICE INTERVENTIONS TO ASSIST PATIENTS TO IMPROVE OR STABILIZE MEDICAL STATUS AND PREVENT RE-HOSPITALIZATION. MEASURES INCLUDING REVIEW AND IDENTIFICATION OF CONCERNS FOR THE FOLLOWING AREAS: RIGHT FEMUR FRACTURE, EPILEPSY, HTN, ANXIETY, DRUG REGIMEN, DIABETIC FOOT CARE, ENVIRONMENTAL SAFETY ISSUES AND FALLS, PRESSURE ULCERS, PAIN, AND DISEASE MANAGEMENT. [code = PHYSICAL THERAPIST TO ASSESS BEST PRACTICE INTERVENTIONS TO ASSIST PATIENTS TO IMPROVE OR STABILIZE MEDICAL STATUS AND PREVENT RE-HOSPITALIZATION. MEASURES INCLUDING REVIEW AND IDENTIFICATION OF CONCERNS FOR THE FOLLOWING AREAS: RIGHT FEMUR FRACTURE, EPILEPSY, HTN, ANXIETY, DRUG REGIMEN, DIABETIC FOOT CARE, ENVIRONMENTAL SAFETY ISSUES AND FALLS, PRESSURE ULCERS, PAIN, AND DISEASE MANAGEMENT.] Future Scheduled Test PHYSICAL T HERAPY TO ESTABLISH /UPGRADE/DOWNGRADE THERAPEUTIC EXERCISE PROGRAM AND INSTRUCT PATIENT/CAREGIVER ON EXERCISE PRECAUTIONS WITH WRITTEN HOME PROGRAM. MAY INCLUDE PROM, AAROM, AROM, RROM APPROPRIATE TO IMPROVE FUNCTIONAL STRENGTH AND RANGE OF MOTION. [code = PHYSICAL THERAPY TO ESTABLISH /UPGRADE/DOWNGRADE THERAPEUTIC EXERCISE PROGRAM AND INSTRUCT PATIENT/CAREGIVER ON EXERCISE PRECAUTIONS WITH WRITTEN HOME PROGRAM. MAY INCLUDE PROM, AAROM, AROM, RROM APPROPRIATE TO IMPROVE FUNCTIONAL STRENGTH AND RANGE OF MOTION.] Future Scheduled Test PHYSICAL T HERAPY TO INSTRUCT PATIENT/CAREGIVER ON SAFE TRANSFER TECHNIQUES USING PROPER BODY MECHANICS AND EQUIPMENT. [code = PHYSICAL THERAPY TO INSTRUCT PATIENT/CAREGIVER ON SAFE TRANSFER TECHNIQUES USING PROPER BODY MECHANICS AND EQUIPMENT.] Future Scheduled Test PHYSICAL T HERAPY TO INSTRUCT PATIENT/CAREGIVER ON GAIT TRAINING TECHNIQUES USING APPROPRIATE ASSISTIVE DEVICE, PROPER BODY MECHANICS TO IMPROVE MOBILITY, AND PREVENT INJURY OF PATIENT AND/OR CAREGIVER. [code = PHYSICAL THERAPY TO INSTRUCT PATIENT/CAREGIVER ON GAIT TRAINING TECHNIQUES USING APPROPRIATE ASSISTIVE DEVICE, PROPER BODY MECHANICS TO IMPROVE MOBILITY, AND PREVENT INJURY OF PATIENT AND/OR CAREGIVER.] Future Scheduled Test PHYSICAL T HERAPY TO ASSESS AND RECOMMEND HOME SAFETY ADAPTATIONS AND EDUCATE PATIENT /CAREGIVER ON FALL PREVENTION STRATEGIES. [code = PHYSICAL THERAPY TO ASSESS AND RECOMMEND HOME SAFETY ADAPTATIONS AND EDUCATE PATIENT /CAREGIVER ON FALL PREVENTION STRATEGIES.] Future Scheduled Test PHYSICAL T HERAPY FOR OBSERVATION AND ASSESSMENT OF PAIN, EFFECTIVENESS OF PAIN MANAGEMENT REGIMEN AND SKILLED TEACHING RELATED TO PAIN MANAGEMENT. THERAPIST TO REPORT INCREASED PAIN LEVEL TO PHYSICIAN FOR PROMPT INTERVENTION. [code = PHYSICAL THERAPY FOR OBSERVATION AND ASSESSMENT OF PAIN, EFFECTIVENESS OF PAIN MANAGEMENT REGIMEN AND SKILLED TEACHING RELATED TO PAIN MANAGEMENT. THERAPIST TO REPORT INCREASED PAIN LEVEL TO PHYSICIAN FOR PROMPT INTERVENTION.] Future Scheduled Test PHYSICAL T HERAPY TO INSTRUCT PATIENT/CAREGIVER ON BALANCE AND BALANCE STRATEGIES TO IMPROVE SAFE MOBILITY AND REDUCE RISK FOR FALL AND INJURY INCLUDING PARTICIPATION IN [facility] BALANCE SPECIALTY PROGRAM [code = PHYSICAL THERAPY TO INSTRUCT PATIENT/CAREGIVER ON BALANCE AND BALANCE STRATEGIES TO IMPROVE SAFE MOBILITY AND REDUCE RISK FOR FALL AND INJURY INCLUDING PARTICIPATION IN [facility] BALANCE SPECIALTY PROGRAM] Future Scheduled Test SUMMARY OF THERAPY EVAL/ASSESSMENT FINDINGS AND REASON(S) SKILLS OF A THERAPIST ARE INDICATED: PATIENT SEEN FOR RECERTIFICATION. PRIMARY DIAGNOSIS RIGHT HIP FRACTURE ORIF HISTORY OF ETOH ABUSE. PATIENTS BASELINE WAS INDEPENDENT. PATIENT'S GOAL IS TO IMPROVE WALKING ESPECIALLY ON STAIRS. PATIENT CONTINUES WITH RIGHT HIP PAIN IMPROVING. CONTINUES WITH RIGHT LOWER EXTREMITY WEAKNESS INITIAL STATUS 3 - 5 CURRENTLY 3+ TO 4 - 5. PATIENT TRANSFERRING SUPERVISION LEVEL AMBULATING WITH WALKER SUPERVISION LEVEL ATTEMPTED UNSAFE AMBULATION WITHOUT ASSISTIVE DEVICE. PATIENTS RECENT PROGRESS DELAYED RELATED TO COVID EPISODE. PATIENT WILL BENEFIT FROM ONGOING THERAPY HE SAID MILD SETBACK FROM SICKNESS. PHYSICAL THERAPY WILL FOCUS ON LOWER EXTREMITY STRENGTH, PROGRESSIVE GATE TRAINING AND TRANSFER TRAINING FALL PREVENTION. PATIENT AGREES WITH PLAN OF CARE. [code = SUMMARY OF THERAPY EVAL/ASSESSMENT FINDINGS AND REASON(S) SKILLS OF A THERAPIST ARE INDICATED: PATIENT SEEN FOR RECERTIFICATION. PRIMARY DIAGNOSIS RIGHT HIP FRACTURE ORIF HISTORY OF ETOH ABUSE. PATIENTS BASELINE WAS INDEPENDENT. PATIENT'S GOAL IS TO IMPROVE WALKING ESPECIALLY ON STAIRS. PATIENT CONTINUES WITH RIGHT HIP PAIN IMPROVING. CONTINUES WITH RIGHT LOWER EXTREMITY WEAKNESS INITIAL STATUS 3 - 5 CURRENTLY 3+ TO 4 - 5. PATIENT TRANSFERRING SUPERVISION LEVEL AMBULATING WITH WALKER SUPERVISION LEVEL ATTEMPTED UNSAFE AMBULATION WITHOUT ASSISTIVE DEVICE. PATIENTS RECENT PROGRESS DELAYED RELATED TO COVID EPISODE. PATIENT WILL BENEFIT FROM ONGOING THERAPY HE SAID MILD SETBACK FROM SICKNESS. PHYSICAL THERAPY WILL FOCUS ON LOWER EXTREMITY STRENGTH, PROGRESSIVE GATE TRAINING AND TRANSFER TRAINING FALL PREVENTION. PATIENT AGREES WITH PLAN OF CARE.] Goal 2024-02-16 Patient Goal - TO GET BETTER FAST Goal Patient Goal - TO GET BETTER FAST Goal Provider Goal - PHYSICAL THERAPY EVALUATION TO BE COMPLETED WITH RECOMMENDATIONS AND/OR WRITTEN TREATMENT PLAN OF CARE ESTABLISHED FOR THE PHYSICIANS SIGNATURE Goal Provider Goal - PATIENT/CAREGIVER VERBALIZES UNDERSTANDING OF THE INITIAL BEST PRACTICE RECOMMENDATIONS. PHYSICIAN TO BE NOTIFIED APPROPRIATE FOR ANY CHANGES OR COMPLICATIONS THROUGHOUT THE CERTIFICATION PERIOD. Goal Provider Goal - PATIENT/CAREGIVER WILL PERFORM THERAPEUTIC EXERCISE/S AND DEMONSTRATE PARTICIPATION IN A HOME PROGRAM. Goal Provider Goal - PATIENT/CAREGIVER WILL DEMONSTRATE SAFE TRANSFERS USING APPROPRIATE ASSISTIVE DEVICE, BODY MECHANICS AND EQUIPMENT. Goal Provider Goal - PATIENT/CAREGIVER WILL DEMONSTRATE IMPROVED GAIT TECHNIQUES TO MINIMIZE RISK OF INJURY. Goal Provider Goal - PATIENT/CAREGIVER WILL DEMONSTRATE/VERBALIZE UNDERSTANDING OF RECOMMENDATIONS TO INCREASE SAFETY IN THE HOME AND FALL PREVENTION. Goal Provider Goal - INCREASED PAIN OR INEFFECTIVE PAIN CONTROL MEASURES WILL BE IDENTIFIED AND PROMPTLY REPORTED TO THE PHYSICIAN. PATIENT/CAREGIVER WILL DEMONSTRATE EFFECTIVE PAIN MANAGEMENT. Goal Provider Goal - PATIENT/CAREGIVER WILL DEMONSTRATE IMPROVED BALANCE AND REDUCE THE RISK OF FALLS AND INJURY. Goal Provider Goal - Encounters Start Date/Time End Date/Time Encounter Type Admission Type Attending [facility] Facility Care Department Encounter ID Discharge Date Discharge Status Discharge Condition Discharge Reason Percent Goals Met 2023-12-21 00:00:00 2024-04-18 00:00:00 Outpatient RECERTIFIC NANO KIRK ([facility]), DERRICK [facility] [id number] .00
--- NOTE | 2024-03-16 09:36 | MHC.OFFVIS ---
Intake Visit Reasons: OV - right hip IM Nail 12/16/23 NE Intake Note: Sher is a 68 year old male who presents today with a walker for a follow up of his right hip IM Nail 12/16/23 NE. Patient reports he is overall feeling well and denies any concerns at this time. Pt states today is his last day of PT and he states that has helped a lot. Allergies No Known Allergies Allergy (Verified 03/16/24 09:40) HPI HPI OV - right hip IM Nail 12/16/23 NE: Details: 68-year-old male who presents in the office today for 3 months status post right femoral IM nailing which was performed on 12/16/[address] Augustin. I last saw the patient in the office on 01/31/24, when the patient reported mild discomfort in her right hip. He was recommended to continue his home physical therapy to work on glute, core, quad strengthening as well as gait training. He will continue to ambulate with the use of a walker until cleared by physical therapy. While in the office today, the patient presents with a walker. He reports that overall he is feeling well post-operatively and denies any concerns at this time. He mentions his last physical therapy appointment is scheduled today and PT has greatly helped him with his symptoms. [facility] Medical History Alcohol abuse, daily use Agoraphobia Hypertension Seizure disorder Social History Household Members: None Housing: House Are you a primary career discovery teacher to a significant other at home: No Do you presently have visiting nurse or other home services: No Alcohol intake: current Alcohol intake frequency: 3 or more drinks per day Alcohol type: wine Patient Tobacco Use Status: Never used Tobacco Second Hand Smoke Exposure: No service: No Current occupational status: retired Review of Systems Const All systems reviewed & are unremarkable except as noted in HPI and below Physical Exam Const General: cooperative, healthy appearing and no acute distress Resp Effort & Inspection: normal respiratory effort and able to speak in complete sentences Cardio Rate: regular rate Peripheral pulses: Peripheral pulses 2+ throughout GI Palpation (GI): Soft to palpation Skin Lesions: no lesions Rashes: no rashes Extrem Other: Right hip: Normal to inspection. No ecchymosis, erythema, or edema. Prior incision sites are well approximated and healed. Good internal and external rotation. NVI. Assessment & Plan Assessment & Plan (1) Closed intertrochanteric fracture of right hip: Code(s): S72.141A - Displaced intertrochanteric fracture of right femur, initial encounter for closed fracture Category: Medical Plan Mr. Horne is a 68-year-old male who presents in the office today for 3 months status post right femoral IM nailing which was performed on 12/16/[address] Augustin. I last saw the patient in the office on 01/31/24, when the patient reported mild discomfort in her right hip. He was recommended to continue his home physical therapy to work on glute, core, quad strengthening as well as gait training. He will continue to ambulate with the use of a walker until cleared by physical therapy. While in the office today, the patient presents with a walker. He reports that overall he is feeling well post-operatively and denies any concerns at this time. He mentions his last physical therapy appointment is scheduled today and PT has greatly helped him with his symptoms. The patient will return to his normal activities as tolerated. Overall, he is doing very well with minimal discomfort. His last physical therapy appointment is scheduled today and he will be anticipated for discharge. Follow-up will be PRN or sooner if needed. X-rays of the right hip, which were obtained while in the office today and were reviewed by me, Susy Mckeon PA-C, revealed: Intact orthopedic hardware with routine healing. Orders: Orders XR femur RT 2V Today S72.009A - Fracture of unspecified part of neck of unspecified femur, initial encounter for closed fracture Patient Instructions: Scribed by Chinyere Lobato medical information officer, for Susy Mckeon PA-C on 03/16/24 at 10:01 am EST. Coding Level of Care Code Global (53043) Diagnoses Closed intertrochanteric fracture of right hip S72.141A
== END 2024-03-16 10:10 | disposition home or self-care (01) ==
PROVIDERS: PCP Internal Medicine; Visit Provider Physician Assistant
DX: S72.141D Displaced intertrochanteric fracture of right femur, subsequent encounter for closed fracture with routine healing (principal)
CPT/HCPCS: 99213

== ENCOUNTER 2024-04-06 10:22 | Outpatient (REF) | payer MEDICARE, SELFPAY ==
[2024-04-06 10:40] LABS: MANUAL DIFF FLAG NO
[2024-04-06 10:51] LABS: Basophils Absolute Auto 0.1 X10*3/uL (0.0-0.2); Basophils Percent Auto 0.8 % (0-2); Eosinophils Absolute Auto 0.3 X10*3/uL (0.0-0.4); Hematocrit 40.7 % (42.0-52.0); Hemoglobin 13.2 g/dl (14.0-18.0); Imm Gran Abs Auto 0.03 X10*3/uL (0.00-0.03); Imm Gran Pct Auto 0.5 % (0.0-0.4); Lymphocytes Absolute Auto 1.8 X10*3/uL (1.2-4.9); Lymphocytes Percent Auto 27.9 % (20-40); Mean Corpuscular HGB Conc 32.4 g/dl (31.0-36.0); Mean Corpuscular Hemoglobin 31.2 pg (27.0-33.0); Mean Corpuscular Volume 96.2 fL (80.0-98.0); Mean Platelet Volume 8.9 fL (9.4-12.4); Monocytes Absolute Auto 0.6 X10*3/uL (0.1-1.2); Monocytes Percent Auto 8.9 % (2-11); Neutrophils Absolute Auto 3.7 x10*3/uL (2.0-8.3); Neutrophils Percent Auto 56.9 % (45-73); Platelet Count 308 X10*3/uL (160-400); Red Blood Count 4.23 X10*6/uL (4.60-5.80); Red Cell Distribution Width 12.8 % (11.0-16.0); White Blood Count 6.4 X10*3/uL (4.8-10.8)
[2024-04-06 11:39] LABS: Alanine Aminotransferase 12 U/L (0-40); Albumin Level 4.1 g/dL (3.5-5.0); Alkaline Phosphatase 89 U/L (39-117); Anion Gap 11 (12-20); Aspartate Amino Transferase 17 U/L (5-37); Bilirubin Total 0.3 mg/dL (0.0-1.0); Blood Urea Nitrogen 8 mg/dL (9-16); Calcium 8.6 mg/dL (8.4-10.2); Carbon Dioxide 28 mmol/L (22-29); Chloride 101 mmol/L (96-108); Estimated Glomerular Filt Rate > 60; Glucose Random 100 mg/dL (60-115); Potassium 4.9 mmol/L (3.3-5.1); Sodium 135 mmol/L (135-145); Total Protein 6.9 g/dL (6.5-8.0)
[2024-04-06 11:55] LABS: Free T4 (Free Thyroxine) 0.91 ng/dL (0.71-1.85); Thyroid Stimulating Hormone 1.24 uIU/mL (0.32-4.0)
== END 2024-04-06 10:23 | disposition home or self-care (01) ==
LOC: HO.10HDL 10:22
PROVIDERS: Visit Provider Internal Medicine
DX: I10 Essential (primary) hypertension (principal); K21.9 Gastro-esophageal reflux disease without esophagitis; E03.9 Hypothyroidism, unspecified
CPT/HCPCS: 36415; 80053; 84439; 84443; 85025

== ENCOUNTER 2024-08-01 08:47 | Outpatient (AMB) | payer MEDICARE, SELFPAY ==
[2024-08-01 08:49] VITALS: BP 128/70; PULSE 84; TEMP 36.6; O2SAT 98; BMI 34.0
--- NOTE | 2024-08-01 08:49 | A.OFFPC_ITS ---
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 Accompanied by: Self / Same As Patient Allergies No Known Allergies Allergy (Verified 08/01/24 08:50) Tobacco use date assessed: 08/01/24 Fall risk assessment: 1 Fall in past year Last assessed Fall Risk: 08/01/24 Dental Screening Dental Screen Date: 08/01/24 Did you have a dental visit in the last 12 months?: No Did you have a dental problem in the last 6 months where you did not have access to dental care?: No [facility] Medical History (Updated 08/01/24 @ 09:24 by Nikita Hill MD) Essential hypertension Preop cardiovascular exam Alcohol abuse, daily use Agoraphobia Hypertension Seizure disorder Family History (Updated 08/01/24 @ 09:06 by Raissa Clemons MA) Mother No problems noted. Father Throat cancer Social History Household Members: None Housing: House Are you a primary resident care aide to a significant other at home: No Do you presently have visiting nurse or other home services: No Alcohol intake: current Alcohol intake frequency: 3 or more drinks per day Alcohol type: wine Patient Tobacco Use Status: Never used Tobacco e-Cigarette/Vaping Use: Never Used Second Hand Smoke Exposure: No service: No Current occupational status: retired Cognitive needs: Yes (walker) Hearing needs: No Vision needs: Yes (reading glasses) Questionnaire PHQ-9 Over the last 2 weeks, how often have you been bothered by any of the following problems? 1. Little interest or pleasure in doing things: not at all 2. Feeling down, depressed, or hopeless: not at all 3. Trouble falling or staying asleep, or sleeping too much: not at all 4. Feeling tired or having little energy: not at all 5. Poor appetite or overeating: not at all 6. Feeling bad about yourself - or that you are a failure or have let yourself or your family down: not at all 7. Trouble concentrating on things, such as reading the newspaper or watching television: not at all 8. Moving or speaking so slowly that other people could have noticed. Or the opposite - being so fidgety or restless that you have been moving around a lot more than usual: not at all 9. Thoughts that you would be better off or of hurting yourself in some way: not at all Total score: 0 Source: Developed by Drs. Marcel Tierney, Rossi Mead, Eliud Pulido and colleagues, with an educational kayleen from [employer]. Thrive Questionnaire Date Thrive assessed: 08/01/24 I am a: Patient Within the past 12 months, did the food you bought not last and you didn't have the money to get more?: Never true Within the past 12 months, did you worry whether your food would run out before you got money to buy more?: Never true Do you have trouble paying for medicines?: No Do you have trouble getting transportation to medical appointments?: No Do you have trouble paying your heating and electricity bill?: No Do you have trouble taking care of your child, family member or friend?: No Do you have trouble with day-to-day activities such as bathing, preparing meals, shopping, managing finances, etc.?: No Are you currently unemployed and looking for a job?: No Are you interested in more education?: No THRIVE Score: 0 AUDIT C Alcohol Use Questionnaire (AUDIT-C) 1. How often do you have a drink containing alcohol?: Monthly or less 2. How many drinks containing alcohol do you have on a typical day when you are drinking?: 1 or 2 3. How often do you have six or more drinks on one occasion?: Less than monthly Total Score: 2 YADIEL-7 AMB Questionnaire YADIEL-7 Date YADIEL - 7 assessed: 08/01/24 Feeling nervous, anxious, or on edge: 0 = Not at all Not being able to stop or control worryin = Not at all Worrying too much about different things: 0 = Not at all Trouble relaxin = Not at all Being so restless that it is hard to sit still: 0 = Not at all Becoming easily annoyed or irritable: 0 = Not at all Feeling afraid as if something awful might happen: 0 = Not at all Total YADIEL-7 score (0-4 normal; 5-9 mild; 10-14 moderate; 15-21 severe): 0 Source: Developed by Drs. Marcel Tierney, Rossi Mead, Eliud Pulido and colleagues, with an educational kayleen from [employer]. Physical exam (Primary Care) Vital Signs: Last Vital Signs Temp 97.8 F 08/01/24 08:49 Pulse 84 08/01/24 08:49 BP 128/70 08/01/24 08:49 Pulse Ox 98 08/01/24 08:49 Oxygen Delivery Method Room Air 08/01/24 08:49 BMI result Body Mass Index 34.0 Tobacco/Smoking Status: Tobacco use Status Tobacco use date assessed 08/01/24 08/01/24 08:51 Patient Tobacco Use Status Never used Tobacco 08/01/24 08:51 e-Cigarette/Vaping Use Never Used 08/01/24 08:51 PHQ-9: PHQ-9 Score PHQ-9: Total score 0 08/01/24 08:51 Thrive Assessment: Date of Thrive Assessment Date Thrive assessed 08/01/24 08/01/24 08:51 Coding Level of Care Code New Pt Level 4 (83381) Complex EM visit Add On G2211 Diagnoses Hip fracture S72.009A Essential hypertension I10 Agoraphobia F40.00 Seizure disorder G40.909 Assessment & Plan Assessment & Plan (1) Hip fracture: Code(s): S72.009A - Fracture of unspecified part of neck of unspecified femur, initial encounter for closed fracture Category: Medical Plan: Using a walker to ambulate outside the house. Encouraged to exercise and do the exercises suggested by PT (2) Essential hypertension: Code(s): I10 - Essential (primary) hypertension Category: Medical Plan: BP in range. Continue current med (3) Agoraphobia: Code(s): F40.00 - Agoraphobia, unspecified Category: Medical Plan: Patient relies on the Alprazolam for relief from this. He is dependant on the medication. He is unable to work or do his ADL without these meds (4) Seizure disorder: Code(s): G40.909 - Epilepsy, unspecified, not intractable, without status epilepticus Category: Medical Plan: Last seizure more than 10 yrs ago. Will get neurology opinion to see if dilantin can be tapered and stopped. Plan History of Present Illness The patient is a 69-year-old male presenting with concerns related to medication management and follow-up care. He has chronic pain in the thigh area, which has improved in strength but persists. He previously attended physical therapy until a month prior but now continues exercises independently. The patient has a long- standing history of seizures, last occurring nearly 10 years ago, managed with Dilantin, which is currently undergoing review due to concerns about long-term effects on bone and dental health. He also has agoraphobia, effectively managed with alprazolam, although challenges in prescription refills have raised concerns. Social History - Functional Status: Lives independently with support from a sister living next door. 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 - Substance Use: Occasionally drinks beer or wine; denies excessive use. - Family Support: Receives support from a sister who lives next door but manages personal daily activities independently. Review of Systems - Musculoskeletal: Reports chronic pain in the thigh. - Neurological: Denies recent seizures. Reports a history of seizure disorder. - Psychiatric: Reports agoraphobia. - General: Denies other health concerns at this time. Physical Exam General: Cooperative and healthy appearing Nutritional Appearance: Well nourished Orientation/consciousness: Patient oriented x3 Limitations: No limitations Head: Normal to inspection General: Appearance normal, both eyes and all related structures Neck: Normal visual inspection Chest: Normal palpation of entire chest wall Respiratory: N ormal respiratory effort Neurology: Patient oriented x3, history of seizures, last seizure almost 10 years ago, taking Dilantin and alprazolam for seizure management and anxiety. Results Plan - Ensure continued access to alprazolam by liaising with the pharmacy and verifying the handling of prescription requests. - Promote self-directed exercise routine to aid in improving thigh strength. - Refer to a neurologist for evaluation on the appropriateness of continuing Dilantin. - Plan comprehensive blood tests for monitoring in preparation for follow-up. Patient was informed and verbally consented to the use of an ambient scribe for clinic note documentation during this visit. Discussion Notes I discussed with the patient the ongoing management of his seizure disorder using Dilantin and the potential side effects experienced, particularly on dental health. We plan to refer him to a neurologist to evaluate the long-term need for Dilantin, given his seizure-free status for a decade. I reassured the patient about securing timely alprazolam refills, advising him to establish direct communication with the pharmacist, and ensured comprehensive coordination on medication management. Additionally, I encouraged continuing physical activity for thigh pain, and we scheduled the next set of blood tests ahead of the follow-up appointment. Patient Instructions - Call the pharmacy a week ahead for alprazolam refills. - Continue regular physical activities as tolerated to improve thigh strength. - Follow up with neurologist appointment when scheduled. - Complete prescribed blood work before next appointment. - Limit alcohol intake to occasional use. Orders: Orders Basic Metabolic Panel Today G40.909 - Epilepsy, unspecified, not intractable, without status epilepticus, I10 - Essential (primary) hypertension UA and rflx microscopic Today G40.909 - Epilepsy, unspecified, not intractable, without status epilepticus, I10 - Essential (primary) hypertension Complete Blood Count no Diff Today G40.909 - Epilepsy, unspecified, not intractable, without status epilepticus, I10 - Essential (primary) hypertension Lipid Panel Today G40.909 - Epilepsy, unspecified, not intractable, without status epilepticus, I10 - Essential (primary) hypertension Liver Panel Today G40.909 - Epilepsy, unspecified, not intractable, without status epilepticus, I10 - Essential (primary) hypertension Thyroid Stimulating Hormone Today G40.909 - Epilepsy, unspecified, not intractable, without status epilepticus, I10 - Essential (primary) hypertension Phenytoin Dilantin Today G40.909 - Epilepsy, unspecified, not intractable, without status epilepticus, I10 - Essential (primary) hypertension
== END 2024-08-01 09:21 | disposition home or self-care (01) ==
LOC: HO.HMCHD 08:48
PROVIDERS: PCP Internal Medicine; Visit Provider Internal Medicine
DX: S72.009A Fracture of unspecified part of neck of unspecified femur, initial encounter for closed fracture (principal); I10 Essential (primary) hypertension; F40.00 Agoraphobia, unspecified; G40.909 Epilepsy, unspecified, not intractable, without status epilepticus

== ENCOUNTER → 2024-08-01 08:47 | Outpatient (BNVA) | payer MEDICARE, SELFPAY | PROVIDERS: PCP Internal Medicine; Visit Provider Internal Medicine | DX: Z13.89 Encounter for screening for other disorder (principal) | CPT/HCPCS: 99202 ==

== ENCOUNTER 2024-08-01 09:36 | Outpatient (REF) | payer MEDICARE, SELFPAY ==
[2024-08-01 13:16] LABS: Hematocrit 36.7 % (42.0-52.0); Hemoglobin 12.5 g/dl (14.0-18.0); Mean Corpuscular HGB Conc 34.1 g/dl (31.0-36.0); Mean Corpuscular Hemoglobin 32.8 pg (27.0-33.0); Mean Corpuscular Volume 96.3 fL (80.0-98.0); Mean Platelet Volume 9.1 fL (9.4-12.4); Platelet Count 253 X10*3/uL (160-400); Red Blood Count 3.81 X10*6/uL (4.60-5.80); Red Cell Distribution Width 13.1 % (11.0-16.0); White Blood Count 5.6 X10*3/uL (4.8-10.8)
[2024-08-01 13:35] LABS: Alanine Aminotransferase 12 U/L (0-40); Albumin Level 4.1 g/dL (3.5-5.0); Alkaline Phosphatase 75 U/L (39-117); Anion Gap 10 (12-20); Aspartate Amino Transferase 14 U/L (5-37); Bilirubin Direct 0.1 mg/dL (0.0-0.5); Bilirubin Total 0.3 mg/dL (0.0-1.0); Blood Urea Nitrogen 12 mg/dL (9-16); Calcium 9.2 mg/dL (8.4-10.2); Carbon Dioxide 25 mmol/L (22-29); Chloride 102 mmol/L (96-108); Cholesterol 147 mg/dL (<200); Estimated Glomerular Filt Rate > 60; Glucose Random 89 mg/dL (60-115); HDL Cholesterol 55 mg/dL (>40); LDL Cholesterol Calculated 80 mg/dL (<100); Potassium 4.4 mmol/L (3.3-5.1); Sodium 133 mmol/L (135-145); Total Protein 6.5 g/dL (6.5-8.0); Triglycerides 64 mg/dL (<150)
[2024-08-01 13:41] LABS: Phenytoin Dilantin 3.9 ug/mL (10.0-20.0)
[2024-08-01 13:44] LABS: Appearance Urine Clear; Color Urine Yellow; Glucose Urine UA Negative (Negative); Leukocyte Esterase Urine Negative (Negative); Nitrite Urine Negative (Negative); Specific Gravity - Urine 1.015 (1.005-1.025); Urine Blood Negative (Negative); Urine Ketones Negative (Negative); Urine Protein Negative (Neg-Trace)
[2024-08-01 13:50] LABS: Thyroid Stimulating Hormone 1.04 uIU/mL (0.32-4.0)
== END 2024-08-01 09:37 | disposition home or self-care (01) ==
LOC: HO.10HDL 09:36
PROVIDERS: Visit Provider Internal Medicine
DX: I10 Essential (primary) hypertension (principal); F40.00 Agoraphobia, unspecified; G40.909 Epilepsy, unspecified, not intractable, without status epilepticus; S72.009A Fracture of unspecified part of neck of unspecified femur, initial encounter for closed fracture; X58.XXXA Exposure to other specified factors, initial encounter; Y93.9 Activity, unspecified; Y92.9 Unspecified place or not applicable; Y99.9 Unspecified external cause status
CPT/HCPCS: 36415; 80048; 80061; 80076; 80185; 81003; 84443; 85027; 96127; 99202

== ENCOUNTER 2025-01-30 09:15 | Outpatient (AMB) | payer MEDICARE, SELFPAY ==
--- NOTE | 2025-01-30 08:13 | MHC.PC.OV ---
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 He was last seen in the office 08/01 Anxiety/agoraphobia-she is on high-dose of alprazolam. Takes 1 mg q.i.d. PRN. He reports he will go some days without the medication, however on review of mass [facility], he has been getting monthly refills. Reports episodes of panic particularly related to agoraphobia but also may experiences panic at times situationally such as recently when his 17-year-old dog was ill. He is not on any SSRI/SNRI. Discussed tapering the medication given high doses of benzodiazepine especially given his age as well. He is interested in trialing a maintenance medication to hopefully continue weaning off of the alprazolam. Has tried Paxil and Prozac in the past as well as a medication that starts with E but denies that this was escitalopram. He does not follow with Psychiatry and is not interested in this Hypothyroidism-on levothyroxine 50 mcg daily Hypertension-blood pressure in the office 132/68. Compliant with lisinopril 40 mg daily Hyperlipidemia-reports prior PCP discontinued his simvastatin 10 mg daily. Last LDL 80 History of seizure disorder-last grand mal seizure about 10 years ago. Reports he does have episodic seizure activity which he recognizes and Can use alprazolam. He does state that he is ?out of it? for several days following the seizures. Previously following with [facility] but reports difficulty getting to the office due to the light out of the hospital. He was previously on phenytoin but was taken off of this by prior PCP due to adverse side effects including dental issues. While in Neurology, he was advised to have 2 EEGs about 4 weeks apart but reports he was unable to do so. Reports seizure history dating back to childhood. Reports seizure activity can be brought on by anxiety Alcohol use disorder-on record that he was drinking 3 or more alcoholic beverages in 1 day. Discussed with patient and reports this is no longer the case. Denies any ongoing alcohol use which is reassuring given concurrent benzo use. Right hip pain-improving following physical therapy. He is able to continue with exercises-maneuvers at home to help with his pain. Ambulates with a cane outside of the house. no drinking any longer Concerns: none Health maintenance: Overdue for colonoscopy but declines. Also declines Cologuard due to insurance issues ROS: See HPI EXAM: Constitutional - Awake and Alert, No apparent distress Eyes - PERRL Cardiovascular - S1S2, RRR, No edema Respiratory - Normal lung expansion, Normal respiratory effort, No respiratory distress, CTA bilaterally Extremities - no calf tenderness bilaterally, no swelling Skin - Warm/Dry Neurological - Alert & oriented x3 Psychological - Appropriate affect . [facility] Medical History (Updated 01/30/25 @ 09:48 by KENDRA Trevino) HLD (hyperlipidemia) Essential hypertension Preop cardiovascular exam Alcohol abuse, daily use Agoraphobia Hypertension Seizure disorder Family History (Updated 08/01/24 @ 09:06 by Raissa Clemons MA) Mother No problems noted. Father Throat cancer Social History Household Members: None Housing: House Are you a primary women's health care nurse practitioner to a significant other at home: No Do you presently have visiting nurse or other home services: No Alcohol intake: current Alcohol intake frequency: 3 or more drinks per day Alcohol type: wine Patient Tobacco Use Status: Never used Tobacco e-Cigarette/Vaping Use: Never Used Second Hand Smoke Exposure: No service: No Current occupational status: retired Cognitive needs: Yes (walker) Hearing needs: No Vision needs: Yes (reading glasses) Questionnaire Thrive Questionnaire Date Thrive assessed: 08/01/24 YADIEL-7 AMB Questionnaire YADIEL-7 Date YADIEL - 7 assessed: 08/01/24 Source: Developed by DrsFrancy Tierney, Rossi Mead, Eliud Pulido and colleagues, with an educational kayleen from [employer]. Physical exam (Primary Care) Vital Signs: Last Vital Signs Temp 97.9 F 01/30/25 09:26 Pulse 81 01/30/25 09:26 Resp 20 01/30/25 09:26 BP 132/68 01/30/25 09:26 Pulse Ox 97 01/30/25 09:26 Oxygen Delivery Method Room Air 01/30/25 09:26 BMI result Body Mass Index 37.0 Tobacco/Smoking Status: Tobacco use Status Tobacco use date assessed 08/01/24 01/30/25 08:14 Patient Tobacco Use Status Never used Tobacco 01/30/25 08:14 e-Cigarette/Vaping Use Never Used 01/30/25 08:14 Thrive Assessment: Date of Thrive Assessment Date Thrive assessed 08/01/24 01/30/25 08:14 Coding Level of Care Code Est Pt Level 4 (73990) Complex EM visit Add On G2211 Diagnoses Essential hypertension I10 HLD (hyperlipidemia) E78.5 Seizure disorder G40.909 Agoraphobia F40.00 Assessment & Plan Assessment & Plan (1) Essential hypertension: Code(s): I10 - Essential (primary) hypertension Category: Medical Plan: Controlled. Continue lisinopril 40 mg daily. Check renal function electrolyte levels (2) HLD (hyperlipidemia): Code(s): E78.5 - Hyperlipidemia, unspecified Category: Medical Plan: Lipid panel ordered. ASCVD risk score to be calculated pending results of study. (3) Seizure disorder: Code(s): G40.909 - Epilepsy, unspecified, not intractable, without status epilepticus Category: Medical Plan: No recent grand mal seizure. Question mixed with pseudo-seizure given he does state that these can be brought on by anxiety. However given history of epileptic seizure, it would be prudent to have him on an antiepileptic medication. However, he was not restarted on 1 by his neurologist after phenytoin was discontinued. He is advised to reach out to the neurology office for recommendations or to schedule an appointment. I do recommend he have EEG as recommended by Neurology and he is agreeable. Advised to reach out to Neurology. Can use alprazolam as needed for breakthrough seizures or advised to contact 911 for transferred to the emergency room. (4) Agoraphobia: Code(s): F40.00 - Agoraphobia, unspecified Category: Medical Plan: With generalized anxiety/panic disorder. Declines referral to Psychiatry. Did discuss that he is on high doses of alprazolam and given his age in combination puts him at significant risk for falls and confusion. Decreasing alprazolam 1 mg 2 t.i.d.. He is interested in trialing maintenance medication to hopefully decrease/completely weaned from alprazolam. He does deny any ongoing alcohol use to me when discussing benzodiazepine use. He is prescribed sertraline 50 mg daily and is counseled on use and side effects especially black box warning. He will follow-up in 6 weeks. Check testosterone level given significant anxiety/panic/agoraphobia combination with obesity Plan Follow-up in 6 weeks with labs completed today Orders: Orders Testosterone, Total Today E65 - Localized adiposity, F40.00 - Agoraphobia, unspecified, F41.9 - Anxiety disorder, unspecified Basic Metabolic Panel Today E78.5 - Hyperlipidemia, unspecified, F40.00 - Agoraphobia, unspecified, G40.909 - Epilepsy, unspecified, not intractable, without status epilepticus, I10 - Essential (primary) hypertension Complete Blood Count Auto Diff Today E78.5 - Hyperlipidemia, unspecified, F40.00 - Agoraphobia, unspecified, G40.909 - Epilepsy, unspecified, not intractable, without status epilepticus, I10 - Essential (primary) hypertension Lipid Panel Today E78.5 - Hyperlipidemia, unspecified, F40.00 - Agoraphobia, unspecified, G40.909 - Epilepsy, unspecified, not intractable, without status epilepticus, I10 - Essential (primary) hypertension Liver Panel Today E78.5 - Hyperlipidemia, unspecified, F40.00 - Agoraphobia, unspecified, G40.909 - Epilepsy, unspecified, not intractable, without status epilepticus, I10 - Essential (primary) hypertension TSH reflex Free T4 Today E78.5 - Hyperlipidemia, unspecified, F40.00 - Agoraphobia, unspecified, G40.909 - Epilepsy, unspecified, not intractable, without status epilepticus, I10 - Essential (primary) hypertension Medications: New sertraline Take 1/2 tab daily x1 week, then increase to 1 tab 50 mg PO DAILY 90 tabs 0RF
[2025-01-30 09:26] VITALS: BP 132/68; PULSE 81; RESP 20; TEMP 36.6; O2SAT 97; BMI 37.0
== END 2025-01-30 10:01 | disposition home or self-care (01) ==
PROVIDERS: PCP Physician Assistant; Visit Provider Physician Assistant
DX: I10 Essential (primary) hypertension (principal); E78.5 Hyperlipidemia, unspecified; G40.909 Epilepsy, unspecified, not intractable, without status epilepticus; F40.00 Agoraphobia, unspecified

== ENCOUNTER → 2025-01-30 09:15 | Outpatient (BNVA) | payer MEDICARE, SELFPAY | PROVIDERS: PCP Internal Medicine; Visit Provider Physician Assistant | DX: I10 Essential (primary) hypertension (principal); E78.5 Hyperlipidemia, unspecified; G40.909 Epilepsy, unspecified, not intractable, without status epilepticus; F40.00 Agoraphobia, unspecified; F41.9 Anxiety disorder, unspecified; E03.9 Hypothyroidism, unspecified; M25.551 Pain in right hip; F10.90 Alcohol use, unspecified, uncomplicated; Z79.899 Other long term (current) drug therapy | CPT/HCPCS: 99212 ==

== ENCOUNTER 2025-01-30 10:06 | Outpatient (REF) | payer MEDICARE, SELFPAY ==
[2025-01-30 11:24] LABS: MANUAL DIFF FLAG NO
[2025-01-30 11:52] LABS: Hematocrit 44.8 % (42.0-52.0); Hemoglobin 14.4 g/dl (14.0-18.0); Imm Gran Abs Auto 0.04 X10*3/uL (0.00-0.03); Imm Gran Pct Auto 0.5 % (0.0-0.4); Lymphocytes Absolute Auto 1.7 X10*3/uL (1.2-4.9); Mean Corpuscular HGB Conc 32.1 g/dl (31.0-36.0); Mean Corpuscular Hemoglobin 33.3 pg (27.0-33.0); Mean Corpuscular Volume 103.7 fL (80.0-98.0); NRBC Abs Auto 0.000 X10*3/uL (0.0-0.012); NRBC Pct Auto 0.0 /100WBC (0.0-0.2); Platelet Count 274 X10*3/uL (160-400); Red Blood Count 4.32 X10*6/uL (4.60-5.80); White Blood Count 8.4 X10*3/uL (4.8-10.8)
[2025-01-30 12:24] LABS: Alanine Aminotransferase 20 U/L (0-40); Albumin Level 4.5 g/dL (3.5-5.0); Alkaline Phosphatase 78 U/L (39-117); Anion Gap 10 (12-20); Aspartate Amino Transferase 24 U/L (5-37); Blood Urea Nitrogen 10 mg/dL (9-16); Calcium 9.5 mg/dL (8.4-10.2); Carbon Dioxide 31 mmol/L (22-29); Chloride 100 mmol/L (96-108); Cholesterol 146 mg/dL (<200); Estimated Glomerular Filt Rate > 60; HDL Cholesterol 56 mg/dL (>40); Potassium 5.3 mmol/L (3.3-5.1); Sodium 136 mmol/L (135-145); Total Protein 7.1 g/dL (6.5-8.0); Triglycerides 65 mg/dL (<150)
== END 2025-01-30 10:07 | disposition home or self-care (01) ==
LOC: HO.10HDL 10:06
PROVIDERS: Visit Provider Physician Assistant
DX: I10 Essential (primary) hypertension (principal); E78.5 Hyperlipidemia, unspecified; F40.00 Agoraphobia, unspecified; G40.909 Epilepsy, unspecified, not intractable, without status epilepticus
CPT/HCPCS: 36415; 80048; 80061; 80076; 84443; 85025; 99212

== ENCOUNTER 2025-02-06 09:17 | Outpatient (REF) | payer MEDICARE, SELFPAY ==
[2025-02-06 10:33] LABS: MANUAL DIFF FLAG NO
[2025-02-06 10:54] LABS: Hematocrit 43.6 % (42.0-52.0); Hemoglobin 14.3 g/dl (14.0-18.0); Imm Gran Abs Auto 0.04 X10*3/uL (0.00-0.03); Imm Gran Pct Auto 0.5 % (0.0-0.4); Lymphocytes Absolute Auto 1.4 X10*3/uL (1.2-4.9); Mean Corpuscular HGB Conc 32.8 g/dl (31.0-36.0); Mean Corpuscular Hemoglobin 33.5 pg (27.0-33.0); Mean Corpuscular Volume 102.1 fL (80.0-98.0); NRBC Abs Auto 0.000 X10*3/uL (0.0-0.012); NRBC Pct Auto 0.0 /100WBC (0.0-0.2); Platelet Count 251 X10*3/uL (160-400); Red Blood Count 4.27 X10*6/uL (4.60-5.80); White Blood Count 8.0 X10*3/uL (4.8-10.8)
[2025-02-06 10:58] LABS: Anion Gap 13 (12-20); Blood Urea Nitrogen 7 mg/dL (9-16); Calcium 9.6 mg/dL (8.4-10.2); Carbon Dioxide 30 mmol/L (22-29); Chloride 96 mmol/L (96-108); Estimated Glomerular Filt Rate > 60; Potassium 4.8 mmol/L (3.3-5.1); Sodium 134 mmol/L (135-145)
[2025-02-06 11:50] LABS: Folate 4.4 ng/mL (> or = 4.0); Vitamin B12 < 148 pg/mL (200-900)
== END 2025-02-06 09:18 | disposition home or self-care (01) ==
LOC: HO.10HDL 09:17
PROVIDERS: Visit Provider Physician Assistant
DX: D75.89 Other specified diseases of blood and blood-forming organs (principal); E87.5 Hyperkalemia; F40.00 Agoraphobia, unspecified; E65 Localized adiposity; F41.9 Anxiety disorder, unspecified
CPT/HCPCS: 36415; 80048; 82607; 82746; 84403; 85025

== ENCOUNTER 2025-03-04 09:40 | Outpatient (AMB) | payer MEDICARE, SELFPAY ==
--- NOTE | 2025-03-04 09:43 | A.OFFPC_ITS ---
Vital Signs 03/04/25 09:48 Height 5 ft 11.06 in Weight 265 lb 2 oz BMI 36.9 BP 132/88 Blood Pressure Location Rt brachial Position Sitting Respiration 16 Pulse 71 Pulse Source Pulse Oximeter Temp 97.8 F Temp Source Oral Pulse Oximetry (%) 98 Oxygen Delivery Method Room Air Intake Visit Reasons: MARLEN/Huggins Intake Note: New patient visit Supervisor Of Officials Required: No Allergies No Known Allergies Allergy (Verified 03/04/25 09:46) Tobacco use date assessed: 03/04/25 Fall risk assessment: 1 Fall in past year Last assessed Fall Risk: 03/04/25 Dental Screening Dental Screen Date: 08/01/24 HPI HPI Comments History of Present Illness Details 69-year-old male with history of hyperte nsion, agoraphobia, history of seizure disorder, hypothyroidism presenting for follow up Anxiety/agoraphobia-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 The three times daily dosing has increased his panic. He tells me for decades on QID previously. Reports episodes of panic particularly related to agoraphobia but also may experiences panic at times during stressful situations, life events. He is not on any SSRI/SNRI. Tried paxil, prozac and had sertraline rx. Reports GI side effects to SSRIs. He is using the buspirone but has to cut it in half or that too gives him GI side effects. He tells me his heart did not tolerate propranolol in the past Hypothyroidism-on levothyroxine 50 mcg daily CV-On lisinopril. BP is controlled History of seizure disorder-last grand mal seizure about 10 years ago. Reports he does have episodic seizure activity which he recognizes and Can use alprazolam. He does state that he is ?out of it? for several days following the seizures. Previously following with [facility] but r eports difficulty getting to the office due to the light out of the hospital. He was previously on phenytoin but was taken off of this by prior PCP due to adverse side effects including dental issues. While in Neurology, he was advised to have 2 EEGs about 4 weeks apart but reports he was unable to do so. Reports seizure history dating back to childhood. Reports seizure activity can be brought on by anxiety. He was referred to neurology but did not have an appointemtn Alcohol use disorder-on record that he was drinking 3 or more alcoholic beverages in 1 day. Discussed with patient and reports this is no longer the case. Denies any ongoing alcohol use which is reassuring given concurrent benzo use. Right hip pain-improving following physical therapy. He is able to continue with exercises-maneuvers at home to help with his pain. Ambulates with a cane outside of the house. no drinking any longer Health maintenance: Overdue for colonoscopy but declines. Also declines Cologuard due to insurance issues ROS CONSTITUTIONAL: Denies weight loss, fever and chills. HEENT: Denies changes in vision and hearing. RESPIRATORY: Denies SOB and cough. CV: Denies palpitations and CP GI: Denies abdominal pain, nausea, vomiting and diarrhea. : Denies dysuria and urinary frequency. MSK: Denies new myalgia and joint pain. SKIN: Denies rash and pruritus. NEUROLOGICAL: Denies headache PSYCHIATRIC: Denies recent changes in mood. PHYSICAL EXAM: GENERAL: Alert and oriented x 3. NAD EYES: EOMI. Anicteric. HENT: Moist mucous membranes. No scleral icterus. LUNGS: Clear to auscultation bilaterally. CARDIOVASCULAR: Regular rate and rhythm. ABDOMEN: Soft, non-tender +bs EXTREMITIES: No edema. Non-tender. SKIN: No rashes or lesions. Warm. NEUROLOGIC: No focal neurological deficits. CN II-XII grossly intact PSYCHIATRIC: Cooperative. Appropriate mood and affect [facility] [place] Medical History (Updated 03/04/25 @ 10:21 by Ellie Whalen MD) HLD (hyperlipidemia) Essential hypertension Preop cardiovascular exam Alcohol abuse, daily use Agoraphobia Hypertension Seizure disorder Family History (Updated 08/01/24 @ 09:06 by Raissa Clemons MA) Mother No problems noted. Father Throat cancer Social History Household Members: None Housing: House Are you a primary adult live in caregiver to a significant other at home: No Do you presently have visiting nurse or other home services: No Alcohol intake: current Alcohol intake frequency: 3 or more drinks per day Alcohol type: wine Patient Tobacco Use Status: Never used Tobacco e-Cigarette/Vaping Use: Never Used Second Hand Smoke Exposure: No service: No Current occupational status: retired Cognitive needs: Yes (walker) Hearing needs: No Vision needs: Yes (reading glasses) Questionnaire PHQ-9 Over the last 2 weeks, how often have you been bothered by any of the following problems? 1. Little interest or pleasure in doing things: not at all 2. Feeling down, depressed, or hopeless: not at all 3. Trouble falling or staying asleep, or sleeping too much: not at all 4. Feeling tired or having little energy: not at all 5. Poor appetite or overeating: not at all 6. Feeling bad about yourself - or that you are a failure or have let yourself or your family down: not at all 7. Trouble concentrating on things, such as reading the newspaper or watching television: not at all 8. Moving or speaking so slowly that other people could have noticed. Or the opposite - being so fidgety or restless that you have been moving around a lot more than usual: not at all 9. Thoughts that you would be better off or of hurting yourself in some way: not at all Total score: 0 Depression Screening Interpretation: Negative Depression Screening Done: Yes 25494 - PHQ-9 Billing: Yes Source: Developed by Drs. Marcel Tierney, Rossi Mead, Eliud Pulido and colleagues, with an educational kayleen from [employer]. Thrive Questionnaire Date Thrive assessed: 03/01/25 I am a: Patient What is your living situation today?: I have a steady place to live Within the past 12 months, did the food you bought not last and you didn't have the money to get more?: Never true Within the past 12 months, did you worry whether your food would run out before you got money to buy more?: Never true Do you have trouble paying for medicines?: No Do you have trouble getting transportation to medical appointments?: No Do you have trouble paying your heating and electricity bill?: No Do you have trouble taking care of your child, family member or friend?: No Do you have trouble with day-to-day activities such as bathing, preparing meals, shopping, managing finances, etc.?: No Are you currently unemployed and looking for a job?: No Are you interested in more education?: No Please select the resources that you would like help with: None Currently or been in a relationship where the following occur: No concerns reported THRIVE Score: 0 AUDIT C Alcohol Use Questionnaire (AUDIT-C) 1. How often do you have a drink containing alcohol?: 2-4 times a month 2. How many drinks containing alcohol do you have on a typical day when you are drinking?: 1 or 2 3. How often do you have six or more drinks on one occasion?: Never Total Score: 2 YADIEL-7 AMB Questionnaire YADIEL-7 Date YADIEL - 7 assessed: 08/01/24 Feeling nervous, anxious, or on edge: 3 = Nearly every day Not being able to stop or control worryin = Several days Worrying too much about different things: 1 = Several days Trouble relaxin = Several days Being so restless that it is hard to sit still: 0 = Not at all Becoming easily annoyed or irritable: 0 = Not at all Feeling afraid as if something awful might happen: 0 = Not at all Total YADIEL-7 score (0-4 normal; 5-9 mild; 10-14 moderate; 15-21 severe): 6 Source: Developed by Drs. Marcel Tierney, Rossi Mead, Eliud Pulido and colleagues, with an educational kayleen from [employer]. Physical exam (Primary Care) Vital Signs: Last Vital Signs Temp 97.8 F 03/04/25 09:48 Pulse 71 03/04/25 09:48 Resp 16 03/04/25 09:48 BP 132/88 03/04/25 09:48 Pulse Ox 98 03/04/25 09:48 Oxygen Delivery Method Room Air 03/04/25 09:48 BMI result Body Mass Index 36.9 Tobacco/Smoking Status: Tobacco use Status Tobacco use date assessed 03/04/25 03/04/25 09:50 Patient Tobacco Use Status Never used Tobacco 03/04/25 09:44 e-Cigarette/Vaping Use Never Used 03/04/25 09:44 PHQ-9: PHQ-9 Score PHQ-9: Total score 0 03/04/25 09:50 Depression Screening Interpretation: Negative Thrive Assessment: Date of Thrive Assessment Date Thrive assessed 03/01/25 03/04/25 09:44 Currently or been in a relationship where the following occur: No concerns reported Coding Level of Care Code Est Pt Level 4 (96031) Diagnoses Agoraphobia F40.00 Essential hypertension I10 Hyperlipidemia, unspecified hyperlipidemia type E78.5 Hyperlipidemia type: unspecified Additional Codes PHQ-9 - 35465 - PHQ-9 Billing: Yes ([id number]) Assessment & Plan Assessment & Plan (1) Agoraphobia: Code(s): F40.00 - Agoraphobia, unspecified Category: Medical (2) Essential hypertension: Code(s): I10 - Essential (primary) hypertension Category: Medical (3) HLD (hyperlipidemia): Code(s): E78.5 - Hyperlipidemia, unspecified Category: Medical Qualifiers: Hyperlipidemia type: unspecified Qualified Code(s): E78.5 - Hyperlipidemia, unspecified Plan 69 year old presenting to [facility] Past medical, surgical, social reviewed Did increase his xanax back to QID. CSA signed. Discussed dependence, sedation etc Declines trial of SSRI/SNRI, propranolol, psych referral Neuro-seizure history. Trial keppra. Recommend neuro. CV-blood pressure adequately controlled on current medications Medications: New levetiracetam (Keppra) 500 mg PO BID 180 tabs 3RF Changed From alprazolam 1 mg PO TID PRN 90 tabs 0RF Anxiety To alprazolam 1 mg PO QID 112 tabs 3RF Anxiety
[2025-03-04 09:48] VITALS: BP 132/88; PULSE 71; RESP 16; TEMP 36.6; O2SAT 98; BMI 36.9
== END 2025-03-04 10:27 | disposition home or self-care (01) ==
LOC: HO.HMCFM 09:40
PROVIDERS: PCP Internal Medicine; Visit Provider Internal Medicine
DX: F40.00 Agoraphobia, unspecified (principal); I10 Essential (primary) hypertension; E78.5 Hyperlipidemia, unspecified

== ENCOUNTER → 2025-03-04 09:40 | Outpatient (BNVA) | payer MEDICARE, SELFPAY | PROVIDERS: PCP Physician Assistant; Visit Provider Internal Medicine | DX: F40.00 Agoraphobia, unspecified (principal); I10 Essential (primary) hypertension; E78.5 Hyperlipidemia, unspecified | CPT/HCPCS: 96127; 99212 ==